=== PATIENT | male | born 1950 | race Caucasian/White ===

== ENCOUNTER 2016-11-27 16:23 | Inpatient (IN) | payer OTHER ==
[~2016-11-27] VITALS: Ht 180.3 cm; Wt 78.0 kg
[2016-11-27] MEDS ORDERED: SODIUM CHLORIDE 0.9% 1L BAG IV* STA (19:19)
[2016-11-27 20:35] LABS: BASOPHILS % 0.3 % (0.0-2.0); EOSINOPHILS # 0.1 10^3/ul (0.0-0.5); EOSINOPHILS % 0.9 % (0.0-7.0); HEMOGLOBIN 11.5 g/dl (14.0-18.0); INR 1.2; LYMPHOCYTES % 7.2 % (15.0-51.0); MEAN CORPUSCULAR HGB CONC 32.7 g/dl (32.0-37.0); MEAN CORPUSCULAR VOLUME 85.6 fl (82.0-101.0); MEAN PLATELET VOLUME 7.6 fl (7.4-10.4); MONOCYTE # 1.3 10^3/ul (0.3-0.9); MONOCYTES % 9.3 % (0.0-11.0); NEUTROPHIL # 11.2 10^3/ul (1.6-7.5); NEUTROPHILS % 82.3 % (39.0-77.0); PLATELET COUNT 439 10^3/UL (140-440); PROTIME 15.3 Sec (12.2-14.2); PT RATIO 1.2; RED CELL DISTRIBUTION WIDTH 14.1 % (11.5-14.5); UNCORRECTED WBC 13.6 10^3/ul (4.8-10.8); WHITE BLOOD COUNT 13.6 10^3/ul (4.8-10.8)
[2016-11-27 20:40] LABS: ALBUMIN 3.4 g/dl (3.3-4.9)
[2016-11-27 20:41] LABS: POTASSIUM 3.8 mmol/L (3.5-5.1)
[2016-11-27 20:43] LABS: ALBUMIN/GLOBULIN RATIO 0.68; BILIRUBIN,INDIRECT 0.1 mg/dl (0-1.1); BILIRUBIN,TOTAL 0.1 mg/dl (0.2-1.3); CONDITION 1; CREATININE 1.71 mg/dl (0.61-1.24); TOTAL PROTEIN 8.4 g/dl (6.1-8.1)
[2016-11-27] MEDS ORDERED: VANCOMYCIN 1 GM (PMX) 250 ML IVPB STA (20:46)
[2016-11-27 20:55] LABS: TROPONIN-I 0.015 ng/ml (0.00-0.12)
[2016-11-27] MEDS ORDERED: CEFTRIAXONE 1 GM/50 ML (PMX) 50 ML IVPB ONE (21:00)
[2016-11-27] MEDS ORDERED: CLINDAMYCIN 900 MG/D5W (PMX) 50 ML IVPB SCH (21:00)
--- NOTE | 2016-11-27 21:10 | RADRPT ---
PROCEDURE: XR Chest. CLINICAL INDICATION: Chest pain and possible sepsis TECHNIQUE: AP Portable chest. COMPARISON: None available FINDINGS: The soft tissues and bones are remarkable for mild dextroscoliosis and spondylosis of the thoracic s pine. In addition, healed fractures of the right posterior sixth and seventh ribs are present. Mil d vascular calcifications are present of the thoracic aorta and normal size heart is present. No fo claudio infiltrates, masses or effusions are present. No pneumothorax is noted. IMPRESSION: 1. No radiographic evidence for acute cardiopulmonary disease. 2. Mild atherosclerotic vascular disease 3. Healed right posterior sixth and seventh rib fractures. RPTAT: HDC .Frances Bella MD, Date Time Electronically viewed and signed by .Frances Bella MD, on 11/27/2016 21:10 .C/
--- NOTE | 2016-11-27 21:13 | ERA ---
ER Documentation Chief Complaint Date/Time DATE: 11/27/16 TIME: 21:05 Chief Complaint left lower leg cellulitis with no signs of fevers. HPI This is a 66-year-old male presents to the emergency room for evaluation of lower extremity cellulitis. The patient does state he has a history of chronic cellulitis, and frequently his cellulitis gets worse and he has to come to the emergency room for IV antibiotics. He states that he has not been to the emergency room in over 2 years, states that he is noticing purulent discharge from his left lower extremity. The patient denies any fevers, and is not on any medications and came to the emergency room today for evaluation. ROS All systems reviewed and are negative except as per history of present illness. Medications Home Meds No Active Prescriptions or Reported Meds Allergies Allergies: Coded Allergies: Penicillins (Verified Allergy, Unknown, 11/27/16) PMhx/Soc History of Surgery: No Anesthesia Reaction: No Hx Neurological Disorder: No Hx Respiratory Disorders: No Hx Cardiac Disorders: Yes (htn) Hx Psychiatric Problems: No Hx Alcohol Use: No Hx Substance Use: Yes (meth amph) Hx Tobacco Use: Yes Smoking Status: Current every day smoker Physical Exam Vitals Vital Signs Date Time Temp Pulse Resp B/P Pulse Ox O2 Delivery O2 Flow Rate FiO2 11/27/16 16:33 98.5 92 20 115/64 96 Physical Exam INITIAL VITAL SIGNS: Reviewed by me GENERAL: The patient is well developed, pleasant affect, disheveled appearance HEENT: Pupils equal, round, and reactive to light. EOMI. There is no scleral icterus. NECK: C-spine is soft and supple, there is no meningismus. There is no cervical lymphadenopathy. LUNGS: Clear to auscultation bilaterally. There are no rales, wheezes or rhonchi. HEART: Regular rate and rhythm, no murmurs, clicks, rubs or gallops. ABDOMEN: Soft, non-tender, non-distended. There are bowel sounds in all four quadrants. No rebound or guarding. EXTREMITIES: Cellulitis of the bilateral lower extremities, with chronic venous stasis ulcers and purulent discharge from the left foot from 3 2 cm x 2 cm ulcer located on the medial aspect, 2+ pitting edema to bilateral lower extremities NEUROLOGICAL: The patient moves all four extremities with 5/5 strength. Cranial nerves II - XII are intact. Normal gait. Alert and oriented SKIN: There is no apparent rash or petechiae. HEME/LYMPHATIC: There is no evidence of excessive bruising or lymphedema. PSYCHIATRIC: The patient does not appear anxious or depressed. Result Diagram: 11/27/16195411/27/161954 Results 24 hrs Laboratory Tests Test 11/27/16 19:55 Activated Partial Thromboplast Time Pending Alanine Aminotransferase (ALT/SGPT) 20IU/L Albumin 3.4g/dl Albumin/Globulin Ratio 0.68 Alkaline Phosphatase 87IU/L Anion Gap 16 Aspartate Amino Transf (AST/SGOT) 28IU/L Basophils # 0.010^3/ul Basophils % 0.3% Blood Morphology Comment Blood Urea Nitrogen 37mg/dl Calcium Level 9.0mg/dl Carbon Dioxide Level 30mmol/L Chloride Level 100mmol/L Creatinine 1.71mg/dl Direct Bilirubin 0.00mg/dl Eosinophils # 0.110^3/ul Eosinophils % 0.9% Globulin 5.00g/dl Glucose Level 72mg/dl Hematocrit 35.0% Hemoglobin 11.5g/dl INR International Normalized Ratio 1.20 Indirect Bilirubin 0.1mg/dl Lactic Acid Level 1.6mmol/L Lymphocytes # 1.010^3/ul Lymphocytes % 7.2% Mean Corpuscular Hemoglobin 28.0pg Mean Corpuscular Hemoglobin Concent 32.7g/dl Mean Corpuscular Volume 85.6fl Mean Platelet Volume 7.6fl Monocytes # 1.310^3/ul Monocytes % 9.3% Neutrophils # 11.210^3/ul Neutrophils % 82.3% Nucleated Red Blood Cells # 0.010^3/ul Nucleated Red Blood Cells % 0.0/100WBC Platelet Count 04740^3/UL Potassium Level 3.8mmol/L Prothrombin Time 15.3Sec Prothrombin Time Ratio 1.2 Red Blood Count 4.1010^6/ul Red Cell Distribution Width 14.1% Sodium Level 142mmol/L Total Bilirubin 0.1mg/dl Total Protein 8.4g/dl Troponin I 0.015ng/ml White Blood Count 13.610^3/ul Current Medications Medications (Trade) Dose Ordered Sig/Guillermo Route PRN Reason Start Time Stop Time Status Last Admin Dose Admin Sodium Chloride 2480 ml 2,480 ml BOLUS OVER 2 HOURS STAT IV* 11/27/16 19:19 11/27/16 19:20 DC Vancomycin HCl 250 ml @ 125 mls/hr ONCE STAT IVPB 11/27/16 20:46 11/27/16 22:45 Ceftriaxone Sodium 50 ml @ 100 mls/hr ONCE ONCE IVPB 11/27/16 21:00 11/27/16 21:29 UNV Clindamycin HCl/ Dextrose (Cleocin 900 Mg/ D5W (Pmx)) 50 ml @ 50 mls/hr ONCE IVPB 11/27/16 21:00 11/27/16 21:59 Procedures/MDM EKG: Rate/Rhythm: [Normal Sinus Rhythm] QRS, ST, T-waves: [No changes consistent w/ acute ischemia] Impression: [No evidence of ischemia or arrhythmia] This 66-year-old male presents to the ER for evaluation of cellulitis. This patient was found to have diffuse cellulitis of the bilateral lower extremities with a leukocytosis and purulent discharge. He was started on vancomycin, Rocephin, and clindamycin. This patient did have blood and urine cultures obtained. He did have a heart rate above 90, leukocytosis, episodes of infection and he does meet for sepsis criteria. There is no need for vasopressors at this time as this patient does have a mean arterial pressure greater than 65. He was given a 30 cc kilogram IV normal saline bolus. I have spoken to the patient's admitting physician, Dr. Gamino who is okay with [facility] Critical Care: Excluding all billable procedures Time: 34 minutes Treatments/Evaluations: Close monitoring and treatment of unstable vital signs, cardiorespiratory, and neurologic status, while maintaining tight balance of fluid, respiratory, and cardiac interventions. Departure Diagnosis: Primary Impression: Sepsis Additional Impressions: Bilateral lower leg cellulitis Normocytic anemia Renal insufficiency Condition: Stable VIVIANACarlos EnriqueTORITO DALY Nov 27, 2016 21:13
[2016-11-27] MEDS ORDERED: SOD CHLORIDE 0.9% 1,000 ML IV SCH (21:14)
[2016-11-27] MEDS ORDERED: ONDANSETRON 4 MG INJ IV PRN ×2 (21:30→23:00)
[2016-11-27] MEDS ORDERED: ACETAMINOPHEN 325 MG TAB PO PRN ×2 (21:30→23:00)
[2016-11-27] MEDS ORDERED: ZOLPIDEM 5 MG TAB PO PRN (23:00)
[2016-11-27] MEDS ORDERED: DOCUSATE SODIUM 100 MG CAP PO PRN (23:00)
[2016-11-27] MEDS ORDERED: NACL 0.9% 3 ML SYG IV SCH (23:00)
[2016-11-27] MEDS ORDERED: BISACODYL (EC) 5 MG TAB PO PRN (23:00)
[2016-11-27] MEDS ORDERED: HYDROCODONE/APAP (5/325) TAB PO PRN (23:00)
[2016-11-27] MEDS ORDERED: ACETAMINOPHEN 650 MG SUPP PR PRN (23:00)
[2016-11-27] MEDS ORDERED: VANCOMYCIN IV PER PHARMACY XX SCH (23:00)
[2016-11-27] MEDS ORDERED: MAGNESIUM HYDROXIDE 30ML CUP PO PRN (23:00)
[2016-11-27] MEDS ORDERED: morphine 2 MG INJ IV PRN (23:00)
[2016-11-27 23:03] VITALS: PULSE 92; TEMP 98.2
[2016-11-27] MEDS ORDERED: LEVOFLOXACIN 500 MG TAB PO ONE (23:59)
[2016-11-28 00:30] VITALS: Ht 180.3 cm; Wt 78.0 kg
[2016-11-28] MEDS: SOD CHLORIDE 0.9% 1,000 ML IV SCH ×2 (01:51→17:31)
[2016-11-28] MEDS: PANTOPRAZOLE (EC) 40 MG TAB PO SCH (05:46)
[2016-11-28] MEDS: VANCOMYCIN 1 GM in NS 250 ML IVPB SCH (08:14)
[2016-11-28] MEDS: ENOXAPARIN 40 MG/0.4 ML SYG SC SCH (08:17)
[2016-11-28 08:54] VITALS: BP 105/59; RESP 16
[2016-11-28 11:02] LABS: BASOPHILS % 0.3 % (0.0-2.0); EOSINOPHILS # 0.1 10^3/ul (0.0-0.5); EOSINOPHILS % 1.2 % (0.0-7.0); HEMATOCRIT 30.6 % (42.0-52.0); HEMOGLOBIN 10.2 g/dl (14.0-18.0); LYMPHOCYTES # 0.8 10^3/ul (0.8-2.9); LYMPHOCYTES % 7.9 % (15.0-51.0); MEAN CORPUSCULAR HEMOGLOBIN 28.2 pg (29.0-33.0); MEAN CORPUSCULAR HGB CONC 33.2 g/dl (32.0-37.0); MEAN PLATELET VOLUME 7.5 fl (7.4-10.4); MONOCYTE # 1.1 10^3/ul (0.3-0.9); MONOCYTES % 10.8 % (0.0-11.0); NEUTROPHIL # 7.9 10^3/ul (1.6-7.5); NEUTROPHILS % 79.8 % (39.0-77.0); PLATELET COUNT 396 10^3/UL (140-440); RED CELL DISTRIBUTION WIDTH 14.1 % (11.5-14.5); UNCORRECTED WBC 9.9 10^3/ul (4.8-10.8); WHITE BLOOD COUNT 9.9 10^3/ul (4.8-10.8)
[2016-11-28 11:11] LABS: CONDITION 1
[2016-11-28 11:22] LABS: ALBUMIN 2.6 g/dl (3.3-4.9); POTASSIUM 3.9 mmol/L (3.5-5.1)
[2016-11-28 11:25] LABS: ALBUMIN/GLOBULIN RATIO 0.63; BILIRUBIN,INDIRECT 0.2 mg/dl (0-1.1); BILIRUBIN,TOTAL 0.2 mg/dl (0.2-1.3); CALCIUM 8.2 mg/dl (8.4-10.2); CREATININE 1.71 mg/dl (0.61-1.24); TOTAL PROTEIN 6.7 g/dl (6.1-8.1)
[2016-11-28 15:40] LABS: ADD UMIC YES; URINE BILIRUBIN (Dip) NEGATIVE (NEGATIVE); URINE BLOOD (Dip) 1+ (NEGATIVE); URINE COLOR YELLOW (YELLOW); URINE GLUCOSE (Dip) NEGATIVE (NEGATIVE); URINE KETONES (Dip) NEGATIVE (NEGATIVE); URINE LEUKOCYTE ESTERASE (Dip) 3+ (NEGATIVE); URINE NITRITE (Dip) NEGATIVE (NEGATIVE); URINE TOTAL PROTEIN (Dip) TRACE (NEGATIVE); URINE UROBILINOGEN (Dip) 0.2 E.U./dL (0.1-1.0)
[2016-11-28 16:00] LABS: BACTERIA,URINE MANY; SQUAMOUS EPITHELIAL CELL,UR RARE
--- NOTE | 2016-11-28 16:49 | QN ---
Documentation Comment [id number] JOSE ANTONIO JESUS MD Nov 28, 2016 16:48
--- NOTE | 2016-11-28 17:46 | HP ---
DATE OF ADMISSION: 11/27/2016 HISTORY OF PRESENT ILLNESS: Anthony Menezes is a 66-year-old male who lives by himself with dogs as per patient, presented with lower extremity edema, redness and cellulitis. Blood pressure 109/59. The patient has a stiff and large urinary bladder and does self-catheterization. Denies any diabetes or hypertension. ALLERGY HISTORY: PENICILLIN. SOCIAL HISTORY: Smoking positive. Denies any drug abuse. _ MEDICATIONS AT HOME: None. PATIENT'S LISTED MEDICATIONS: None. REVIEW OF SYSTEMS: HEENT: Unremarkable. RESPIRATORY: Unremarkable. CARDIOVASCULAR: Unremarkable. ABDOMEN: A history of distended urinary bladder, does self-catheterization. EXTREMITIES: Swelling of the lower extremity, redness and rash. CENTRAL NERVOUS SYSTEM: Unremarkable. PHYSICAL EXAMINATION: GENERAL: The patient is awake, alert with poor hygiene. VITAL SIGNS: Pulse 92, blood pressure 110/55. HEAD: Atraumatic, normocephalic. Pupils equal, reactive to light. No pallor or conjunctival icterus. NECK: Supple, no JVD. LUNGS: Clear. CARDIOVASCULAR: S1, S2 are normal. ABDOMEN: Soft, distended. Bowel sounds positive. The patient does have bladder firmness noted. EXTREMITIES. The patient has edema of the lower extremity with a rash noted and a cellulitic area noted with or lesion noted. CENTRAL NERVOUS SYSTEM: The patient is awake, alert, no deficit. LABORATORY DATA: WBC 13.6, hematocrit 35, platelet count of 439. The patient has a BUN 37, creatinine 1.7, sodium 142, albumin 2.6. Leukocyte esterase positive in the urine. Chest x-ray: Mild atherosclerotic vascular disease, healed right posterior 6th and 7th rib fracture. IMPRESSION: Lower extremity cellulitis, edema, possible chronic kidney disease. The patient has lactic acidosis. Incomplete database. PLAN: To give this patient low salt diet, wound care, antibiotics and DVT prophylaxis, pain medication. Ultrasound of the abdomen if not done. Orders were done. Dictated By: JOSE ANTONIO [place] Conf#: [id number] DID#: [id number] MTDD
--- NOTE | 2016-11-28 19:16 | RADRPT ---
PROCEDURE: US Renal CLINICAL INDICATION: Distended bladder TECHNIQUE: Multiple sonographic images of the kidneys and bladder were obtained. Evaluation of th e kidneys and bladder was performed as well with gómez scale and color and Doppler evaluation using a curved array transducer. The images were reviewed on a high-resolution PACS workstation. COMPARISON: No prior studies are available for comparison. FINDINGS: The kidneys are well visualized. The right kidney measures 12.9 cm in length. The left kidney measur es 10.2 cm in length. Multiple right renal simple cysts are seen largest 4.1 x 3.3 x 3.3 cm arising from the mid kidney. There is moderate right hydronephrosis. There is a left renal simple cyst mary suring 3.3 x 3.6 x 3.5 cm. There is no left hydronephrosis. No solid renal mass or calculus is seen bilaterally. No perinephric fluid collection is seen. The bladder is decompressed and collapsed. Mcdermott catheter is in the bladder. IMPRESSION: Moderate right hydronephrosis. Bilateral renal cysts. Please see above. RPTAT: HJES .Nilay Du MD, MD Date Time Electronically viewed and signed by .Nilay Du MD, on 11/28/2016 19:15 .S/
[2016-11-28 20:05] VITALS: BP 128/57; RESP 16
[2016-11-29] MEDS: PANTOPRAZOLE (EC) 40 MG TAB PO SCH (05:20)
[2016-11-29 05:44] LABS: BASOPHILS % 0.4 % (0.0-2.0); EOSINOPHILS # 0.2 10^3/ul (0.0-0.5); EOSINOPHILS % 2.1 % (0.0-7.0); HEMATOCRIT 30.7 % (42.0-52.0); HEMOGLOBIN 10.2 g/dl (14.0-18.0); LYMPHOCYTES # 1.3 10^3/ul (0.8-2.9); LYMPHOCYTES % 12.7 % (15.0-51.0); MEAN CORPUSCULAR HEMOGLOBIN 28.3 pg (29.0-33.0); MEAN CORPUSCULAR HGB CONC 33.2 g/dl (32.0-37.0); MEAN CORPUSCULAR VOLUME 85.4 fl (82.0-101.0); MEAN PLATELET VOLUME 7.8 fl (7.4-10.4); MONOCYTE # 0.8 10^3/ul (0.3-0.9); NEUTROPHIL # 7.7 10^3/ul (1.6-7.5); NEUTROPHILS % 76.8 % (39.0-77.0); PLATELET COUNT 375 10^3/UL (140-440); UNCORRECTED WBC 10.1 10^3/ul (4.8-10.8); WHITE BLOOD COUNT 10.1 10^3/ul (4.8-10.8)
[2016-11-29 05:53] LABS: CONDITION 1
[2016-11-29 06:07] LABS: ALBUMIN 2.8 g/dl (3.3-4.9)
[2016-11-29 06:08] LABS: POTASSIUM 3.8 mmol/L (3.5-5.1)
[2016-11-29 06:10] LABS: ALBUMIN/GLOBULIN RATIO 0.63; BILIRUBIN,INDIRECT 0.1 mg/dl (0-1.1); BILIRUBIN,TOTAL 0.1 mg/dl (0.2-1.3); CREATININE 1.59 mg/dl (0.61-1.24); TOTAL PROTEIN 7.2 g/dl (6.1-8.1)
[2016-11-29 06:11] LABS: CALCIUM 8.6 mg/dl (8.4-10.2)
[2016-11-29 08:28] VITALS: BP 104/64; RESP 20
[2016-11-29] MEDS: VANCOMYCIN 1 GM in NS 250 ML IVPB SCH (08:47)
[2016-11-29] MEDS: ENOXAPARIN 40 MG/0.4 ML SYG SC SCH (08:48)
--- NOTE | 2016-11-29 16:06 | RADRPT ---
Echocardiogram Report ADDENDUM Patient Name: NIDHI FUCHS Gender: Male Date: 1950 Study Date: 29-Nov-2016 Floral Arranger: Trent Sanders [facility] Location: 2258 Ref. Physician: JOSE ANTONIO JESUS Quality: Technically Difficult Study Procedures: Transthoracic echocardiogram with complete 2D, M-Mode, and doppler examination. Indications: Coronary Artery Disease. 2D/M Mode Doppler Measurement Value Normal Ranges Measurement Value Normal Ranges LVIDd 2D 4.8 3.5 - 5.6 cm AV Peak Janak 1.5 m/sec LVIDs 2D 2.2 2.1 - 4.1 cm AV Peak PG 9.0 mmHg FS 2D 55.1 % LVOT Peak Janak 0.6 m/sec LVPWd 2D 0.9 0.6 - 1.1 cm LVOT Peak PG 1.0 mmHg IVSd 2D 1.0 0.6 - 1.1 cm MV E Peak Janak 0.6 m/sec IVS/LVPW 2D 1.1 MV A Peak Janak 0.5 m/sec AoR Diam 2D 3.0 2.0 - 3.7 cm MV E/A 1.1 LA/Ao 2D 1 0 - 1 MV Decel Time 194 msec EDV 2D 113.0 cm3 MV E/A 1.1 ESV 2D 10.2 cm3 LA Dimen 2D 4.0 2.3 - 4.0 cm Findings Left Ventricle: Normal left ventricular systolic function. Normal left ventricular cavity size. Normal left ventricular wall thickness. Ejection fraction is visually estimated at 60 %. Right Ventricle: Normal right ventricular size. Normal right ventricular systolic function. Left Atrium: Upper limit of normal left atrial size. Right Atrium: The right atrium is normal in size. Mitral Valve: Mitral valve leaflets appear mildly thickened. Moderate mitral annular calcification. Trace mitral regurgitation. Aortic Valve: Mild aortic stenosis. Aortic cusps appear moderately calcified. Tricuspid Valve: Normal appearance of the tricuspid valve. Unable to obtain RVSP due to minimal presence of tricuspid regurgitation. Pericardium: Normal pericardium with no significant pericardial effusion. Aorta: Normal aortic root. IVC: Normal size and normal respiratory collapse consistent with normal right atrial pressure. Conclusions 1.Normal left ventricular systolic function. Normal left ventricular cavity size. Normal left ventricular wall thickness. Ejection fraction is visually estimated at 60 %. 2.Mitral valve leaflets appear mildly thickened. Moderate mitral annular calcification. Trace mitral regurgitation. 3.Mild aortic stenosis by gradient. GYPSY not calculated by tech on this study. Aortic cusps appear moderately calcified. Due to focal thickening of the aortic valve apparatus cannot completely rule out associated vegetation. Clinical correlation necessary. 4.Normal appearance of the tricuspid valve. Unable to obtain RVSP due to minimal presence of tricuspid regurgitation. Electronically Signed By: Walter West 29-Nov-2016 16:07:55 -0800 [ADDENDUM] Patient Name: NIDHI FUCHS Study Date: 29-Nov-[id number]
[2016-11-29] MEDS: SOD CHLORIDE 0.9% 1,000 ML IV SCH (16:23)
--- NOTE | 2016-11-29 16:32 | CONS ---
DATE OF ADMISSION: 11/27/2016 DATE OF CONSULTATION: 11/29/2016 REASON FOR CONSULTATION: Abnormal electrocardiogram with PVCs in a pattern of bigeminy. Assess for acute coronary syndrome, assess for cardiomyopathy. REQUESTING PHYSICIAN: Sameer Jesus MD HISTORY OF PRESENT ILLNESS: Mr. Menezes is a 66-year-old male with history of ongoing tobacco usage, chronic cellulitis who presented with lower extremity wounds, nonhealing. Upon arrival, temperatur e 98.5, blood pressure 115/64, pulse 95, respiratory 20, saturating 96%. The patient's labs reveale d white count 13.6, hemoglobin 11.5, platelet count of 439, a sodium of 142, potassium 3.8, creatini ne 1.71, BUN of 37. AST 28, ALT 20. Troponin negative. INR of 1.2. UA positive. The patient und erwent a chest x-ray revealing no acute cardiopulmonary abnormalities, healed right posterior 6th an d 7th rib fractures, a renal ultrasound revealing moderate right hydronephrosis. Patient's electroc ardiogram revealed rhythm likely most consistent with sinus rhythm at a rate of 84 with left axis de viation, IVCD, secondary repolarization abnormalities and frequent PVCs in a pattern of bigeminy. T he patient was subsequently admitted to the floor and since admit to the floor, has had stable vital signs. Denies chest pain, shortness of breath. PAST MEDICAL HISTORY: As above in HPI. MEDICATIONS CURRENTLY IN HOSPITAL: 1. Lovenox ___ mg subcutaneous daily, vancomycin. 2. Protonix 40 mg daily. 3. Zofran. 4. Tylenol. 5. [place]. 6. Morphine. 7. Colace. 8. Ambien IV fluid hydration at 59. ALLERGIES: PENICILLIN. SOCIAL HISTORY: Positive tobacco. No ETOH or illicit drug use. FAMILY HISTORY: No ETOH, positive use of methamphetamine. HISTORY: Negative for sudden cardiac or early CAD. REVIEW OF SYSTEMS: As above in HPI. CONSTITUTIONAL: No fevers, chills. PULMONARY: No current shortness of breath. CARDIOVASCULAR: No current chest pain. GASTROINTESTINAL: No vomiting. GENITOURINARY: No hematuria. MUSCULOSKELETAL: Foot pain bilaterally, skin breakdown, erythema. Difficult to palpate distal pul ses bilaterally, posterior tibial, dorsalis pedis. LABORATORY DATA: As above in HPI. No further labs for my review at this time. IMAGING STUDIES: As above in HPI. No further imaging studies for my review at this time. ECG: As above in HPI. No further electrocardiograms for my review at this time. IMPRESSION: 1. Abnormal electrocardiogram, assess for acute coronary syndrome. 2. Premature ventricular contractions in a pattern of bigeminy, assess for acute coronary syndrome . 3. Hypertension. 4. Lower extremity cellulitis and skin breakdown. 5. Probable peripheral arterial disease. 6. Renal failure. 7. Anemia. 8. Leukocytosis. RECOMMENDATIONS: 1. At this time, would consider transfer to telemetry to continue to assess for ongoing significant arrhythmias. 2. Would check the patient's magnesium and replete greater than 2. Keep ____ as possible watching creatinine closely for gentle repletion. 3. Will initiate patient on low dose beta nikhil for suppression of recurrent bouts of bigeminy. 4. Check a 2D echo to further assess patient's ejection fraction, wall motion and any major abnorma lities. 5. Complete a rule out for myocardial infarction shows patient's EKG abnormalities and bigeminy are not due to any acute coronary syndrome such as an acute myocardial infarction. 6. Check a fasting lipid panel for general risk stratification and initiate lipid-lowering medicati ons as necessary. 7. For ongoing lower extremity wound care and antibiotics, suggest arterial ultrasound to assess fo r significant peripheral arterial disease in the setting of renal failure. 8. Continue all further workup and treatment per PMD and ____ consultations. Thank you for allowing me to take part in the care of this patient. I will continue to follow along very closely with you with further recommendations to be made as the patient progresses through his inpatient hospital clinical course. Dictated By: FRANKO DUFFY/J[place] Conf#: [id number] DID#: [id number] CC: SAMEER JESUS MD;*EndCC*
--- NOTE | 2016-11-29 17:35 | RADRPT ---
PROCEDURE: US bilateral lower extremity arteries. CLINICAL INDICATION: Bilateral leg pain. Claudication that interferes significantly with the masha ent's lifestyle. TECHNIQUE: Multiple longitudinal and transverse images of the bilateral lower extremity arteries w ere obtained with gómez scale, pulsed Doppler, and color Doppler imaging. COMPARISON: No prior studies are available for comparison. FINDINGS: Right TERMINAL CARMAN:190 cm/sec PSFA:111 cm/sec MSFA:88 cm/sec DSFA:83 cm/sec POP:74 cm/sec SITE PROMOTION AGENT:71 cm/sec DPA:30 cm/sec Left TERMINAL CARMAN:106 cm/sec PSFA:117 cm/sec MSFA:87 cm/sec DSFA:9 cm/sec POP:868 cm/sec SITE PROMOTION AGENT:52 cm/sec DPA:24 cm/sec The right ankle-brachial index is 1.1 and the left ankle-brachial index is 1.1. There is normal triphasic flow throughout bilaterally. There is no significant plaque, stenosis, or occlusion. IMPRESSION: 1. Normal bilateral lower extremity arterial Doppler. RPTAT: QQ .Jossue Garcia MD, Date Time Electronically viewed and signed by .Jossue Garcia MD, on 11/29/2016 17:35 .R/
--- NOTE | 2016-11-29 18:27 | CONS ---
DATE OF ADMISSION: 11/27/2016 DATE OF CONSULTATION: 11/29/2016 TYPE OF CONSULTATION: Urology. REQUESTING PHYSICIAN: Sameer Gamino. Dear Sameer: Thank you for asking me to see this patient in urological consultation. HISTORY OF PRESENT ILLNESS: This is a 66-year-old male who presented to the emergency room for eval uation of lower extremity cellulitis. He does have an ulcerated ulcer in the left lower extremity w ith purulent discharge coming out of it. The patient stated that he had a history of cellulitis in the past. In fact, his lower extremities are very pigmented from chronic cellulitis. 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 He was diagnosed with that at [facility] 2 to 3 years earlier and was put on self-intermittent catheterization. He was told initially to do the se lf-catheterization at least 3 times a day. He became gradually cut down on that and has been doing it once or twice a day and has not done any catheterization for the past week. He states that he morgan s not been doing it as often because he ran out of catheters and he has been using the same catheter again and again, and he does not know how to get these catheters. When he came into the emergency room. the bladder was distended and they put a Mcdermott catheter for him and then the patient underwent a renal ultrasound and that showed a right hydronephrosis; therefore, a urological consultation was requested. Since the patient stopped catheterizing himself. He has been going to the bathroom sherry y often and also has urgency incontinence and also he has been wetting the bed at night. The patien t denies having any fever or chills. The patient denies any history of hypertension. He states he is pre-diabetic. He also does have hepatitis C and expressed his desire to get rid of it since it c an be treated now. The patient is a smoker. He smokes 1 pack of cigarettes a day. He does not dri nk any alcohol. He was , he does have a daughter who is an officer but he is not in contact with her, and they do not talk and they do not communicate. The patient has used drugs in the past, basically meth and amphetamines. ALLERGIES: THE PATIENT STATES HE IS ALSO ALLERGIC TO PENICILLIN. Apparently he does have a history of hypertension as well. FAMILY HISTORY: His father of prostate cancer at around age 74 and his mother of pancreat ic cancer at age 71. PHYSICAL EXAMINATION: GENERAL: Reveals an elderly male. He weighs 78 kilograms. He is 71 inches tall. VITAL SIGNS: Temperature is 98.8, pulse is 86, respiration 20, blood pressure 104/64. HEAD AND NECK: He has poor dental hygiene. The neck is supple. There is no cervical adenopathy. HEART: Has some irregularities. LUNGS: Clear. ABDOMEN: Soft. There is no abdominal mass palpable. GENITALIA: External genitalia are normal. RECTAL: Prostate is soft and did not feel large. EXTREMITIES: He does have cellulitis of lower extremities and ulcerated area in the leg on the left side. LABORATORY DATA: His CBC shows a white count of, initially on admission 13.6, today is 10.1, BUN an d the hemoglobin was 11.5, now it is 10.2. The BUN is 33, creatinine 1.59. Electrolytes are normal . The PT is 15.3, INR 1.2. The renal ultrasound was reported as moderate right hydronephrosis, nita ateral renal cysts and the bladder is decompressed because he had a Mcdermott catheter put in. Urine culture is too young to evaluate and blood cultures are still pending. IMPRESSION: An atonic bladder, history of urinary retention, right hydronephrosis, most likely seco ndary to the urinary retention. The patient does have other medical problems including hepatitis C, and peripheral vascular disease with lower extremity cellulitis and ulceration. RECOMMENDATION: From a urological standpoint, at the present, we shall leave the Mcdermott catheter in and have his other medical problems taken care of, mainly his lower extremity cellulitis. The patie nt will be restarted on intermittent catheterization and we will arrange for home health through his insurance to get him to do the self-catheterization and learn how to do it in a sterile way so he c ould do it 4 times a day and hopefully save his kidney from further damage. I will follow his urological problem with you. I do thank you for allowing me to help in his care. Dictated By: MILO BURCIAGA/[place] Conf#: [id number] DID#: [id number]
[2016-11-29 19:25] LABS: CREATINE KINASE 36 IU/L (23-200)
[2016-11-29 19:44] LABS: CK-MB 1.63 ng/ml (0.0-2.4); TROPONIN-I < 0.010 ng/ml (0.00-0.12)
[2016-11-29 20:48] VITALS: BP 104/55; RESP 19
[2016-11-29] MEDS: METOPROLOL 25 MG TAB PO SCH (21:00)
--- NOTE | 2016-11-29 21:37 | PN ---
Date/Time of Note Date/Time of Note DATE: 11/29/16 TIME: 21:35 Assessment/Plan VTE Prophylaxis VTE Prophylaxis Intervention: other Lines/Catheters Urinary Cath still in place: Yes Reason Cath still needed: other (indicate) Assessment/Plan Chief Complaint/Hosp Course cellulites ckd hydronephrosis plan per apc dr grant called to see Problems: Subjective 24 Hr Interval Summary ENT: no complaints Respiratory: no complaints Gastrointestinal: pain Exam/Review of Systems Vital Signs Vitals Vital Signs Date Time Temp Pulse Resp B/P Pulse Ox O2 Delivery O2 Flow Rate FiO2 11/29/16 20:48 98.8 65 19 104/55 95 11/27/16 23:03 Room Air Intake and Output 11/28/16 11/28/16 11/29/16 15:00 23:00 07:00 Intake Total 250 ml 3140 ml 1375 ml Output Total 4100 ml 6100 ml Balance 250 ml -960 ml -4725 ml Exam Respiratory: clear to auscultation Cardiovascular: regular rate and rhythm Gastrointestinal: soft Extremities: other (skin wound+) Results Result Diagram: 11/29/16 0425 11/29/16 0455 Results 24 hrs Laboratory Tests Test 11/29/16 04:25 11/29/16 04:55 11/29/16 14:40 11/29/16 19:00 Basophils # 0.0 Basophils % 0.4 Blood Morphology Comment Eosinophils # 0.2 Eosinophils % 2.1 Hematocrit 30.7 L Hemoglobin 10.2 L Lymphocytes # 1.3 Lymphocytes % 12.7 L Mean Corpuscular Hemoglobin 28.3 L Mean Corpuscular Hemoglobin Concent 33.2 Mean Corpuscular Volume 85.4 Mean Platelet Volume 7.8 Monocytes # 0.8 Monocytes % 8.0 Neutrophils # 7.7 H Neutrophils % 76.8 Nucleated Red Blood Cells # 0.0 Nucleated Red Blood Cells % 0.0 Platelet Count 375 Red Blood Count 3.60 L Red Cell Distribution Width 14.0 White Blood Count 10.1 Alanine Aminotransferase (ALT/SGPT) 13 Albumin 2.8 L Albumin/Globulin Ratio 0.63 Alkaline Phosphatase 71 Anion Gap 16 Aspartate Amino Transf (AST/SGOT) 18 Blood Urea Nitrogen 33 H Calcium Level 8.6 Carbon Dioxide Level 25 Chloride Level 106 Creatinine 1.59 H Direct Bilirubin 0.00 Globulin 4.40 H Glucose Level 93 # Indirect Bilirubin 0.1 Potassium Level 3.8 Sodium Level 143 Total Bilirubin 0.1 L Total Protein 7.2 Magnesium Level 1.7 Creatine Kinase 36 Creatine Kinase Index 4.5 Creatinine Kinase MB (Mass) 1.63 Troponin I < 0.010 Medications Medications Current Medications Sodium Chloride (NS) 1,000 ml @ 50 mls/hr Q20H IV Last administered on 16:23; Admin Dose 50 MLS/HR; Start 11/27/16 at 22:45 Ondansetron HCl (Zofran Inj) 4 mg Q6H PRN IV NAUSEA AND/OR VOMITING; Start 11/27 at 23:00 Acetaminophen (Tylenol Tab) 650 mg Q6H PRN PO PAIN LEVEL 1-3 OR FEVER; Start at 23:00 Acetaminophen (Tylenol Supp) 650 mg Q6H PRN [place] PAIN LEVEL 1-3 OR FEVER; Start 11/27/16 at 23:00 Acetaminophen/ Hydrocodone Bitart ([place] (5/325)) 1 tab Q6H PRN PO MODERATE PAIN LEVEL 4-6; Start 11/27/16 at 23:00 Morphine Sulfate (morphine) 2 mg Q4H PRN IV SEVERE PAIN LEVEL 7-10; Start at 23:00 Docusate Sodium (Colace) 100 mg Q12H PRN PO CONSTIPATION; Start 11/27/16 at 23: 00 Magnesium Hydroxide (Milk Of Mag) 30 ml DAILY PRN PO CONSTIPATION; Start at 23:00 Bisacodyl (Dulcolax) 5 mg DAILY PRN PO CONSTIPATION; Start 11/27/16 at 23:00 Zolpidem Tartrate (Ambien) 5 mg QHS PRN PO SLEEP; Start 11/27/16 at 23:00 Pantoprazole (Protonix Tab) 40 mg DAILY@06 PO Last administered on 11/29/16 05 :20; Admin Dose 40 MG; Start 11/28/16 at 06:00 Enoxaparin Sodium 40 mg 40 mg DAILY SC ; Start 11/28/16 at 09:00 Vancomycin HCl (Vancocin) 250 ml @ 125 mls/hr Q24H IVPB Last administered on 08:47; Admin Dose 125 MLS/HR; Start 11/28/16 at 09:00 Metoprolol Tartrate (Lopressor) 25 mg BID PO ; Start 11/29/16 at 21:00 JOSE ANTONIO JESUS MD Nov 29, 2016 21:36
--- NOTE | 2016-11-29 22:57 | RADRPT ---
Vent Rate: 80 bpm RR Interval: 0 msec [place] Interval: 148 msec QRS Duration: 136 msec QT Interval: 436 msec QTC Interval: 502 msec P-R-T [place]: 74 - -12 - 74 degrees Sinus rhythm with frequent premature ventricular complexes Right bundle branch block Abnormal ECG Electronically Signed By: Nilay Hernandez [id number]
--- NOTE | 2016-11-29 23:38 | CONS ---
Date/Time of Note Date/Time of Note DATE: 11/29/16 TIME: 23:38 Assessment/Plan Assessment/Plan Problems: (1) Bilateral lower leg cellulitis Status: Acute (2) Normocytic anemia Status: Acute (3) Renal insufficiency Status: Acute Additional Assessment/Plan No surgery recommended at this time. Continue IVAbx. Will follow inhouse. Thank you again for involving me in the care of this patient. If you have any questions regarding this case, please feel free to contact me at pager: or reach me at mobile: [phone]. Consultation Date/Type/Reason Admit Date/Time Nov 27, 2016 at 21:15 ENT: no complaints Respiratory: no complaints Gastrointestinal: pain Social History Smoking Status: Current every day smoker Exam/Review of Systems Vital Signs Vitals Vital Signs Date Time Temp Pulse Resp B/P Pulse Ox O2 Delivery O2 Flow Rate FiO2 11/29/16 20:48 98.8 65 19 104/55 95 11/27/16 23:03 Room Air Intake and Output 11/28/16 11/28/16 11/29/16 15:00 23:00 07:00 Intake Total 250 ml 3140 ml 1375 ml Output Total 4100 ml 6100 ml Balance 250 ml -960 ml -4725 ml Results Result Diagram: 11/29/16 0425 11/29/16 0455 Results 24 hrs Laboratory Tests Test 11/29/16 04:25 11/29/16 04:55 11/29/16 14:40 11/29/16 19:00 Basophils # 0.0 Basophils % 0.4 Blood Morphology Comment Eosinophils # 0.2 Eosinophils % 2.1 Hematocrit 30.7 L Hemoglobin 10.2 L Lymphocytes # 1.3 Lymphocytes % 12.7 L Mean Corpuscular Hemoglobin 28.3 L Mean Corpuscular Hemoglobin Concent 33.2 Mean Corpuscular Volume 85.4 Mean Platelet Volume 7.8 Monocytes # 0.8 Monocytes % 8.0 Neutrophils # 7.7 H Neutrophils % 76.8 Nucleated Red Blood Cells # 0.0 Nucleated Red Blood Cells % 0.0 Platelet Count 375 Red Blood Count 3.60 L Red Cell Distribution Width 14.0 White Blood Count 10.1 Alanine Aminotransferase (ALT/SGPT) 13 Albumin 2.8 L Albumin/Globulin Ratio 0.63 Alkaline Phosphatase 71 Anion Gap 16 Aspartate Amino Transf (AST/SGOT) 18 Blood Urea Nitrogen 33 H Calcium Level 8.6 Carbon Dioxide Level 25 Chloride Level 106 Creatinine 1.59 H Direct Bilirubin 0.00 Globulin 4.40 H Glucose Level 93 # Indirect Bilirubin 0.1 Potassium Level 3.8 Sodium Level 143 Total Bilirubin 0.1 L Total Protein 7.2 Magnesium Level 1.7 Creatine Kinase 36 Creatine Kinase Index 4.5 Creatinine Kinase MB (Mass) 1.63 Troponin I < 0.010 Medications Medications Current Medications Sodium Chloride (NS) 1,000 ml @ 50 mls/hr Q20H IV Last administered on 16:23; Admin Dose 50 MLS/HR; Start 11/27/16 at 22:45 Ondansetron HCl (Zofran Inj) 4 mg Q6H PRN IV NAUSEA AND/OR VOMITING; Start 11/27 at 23:00 Acetaminophen (Tylenol Tab) 650 mg Q6H PRN PO PAIN LEVEL 1-3 OR FEVER; Start at 23:00 Acetaminophen (Tylenol Supp) 650 mg Q6H PRN [place] PAIN LEVEL 1-3 OR FEVER; Start 11/27/16 at 23:00 Acetaminophen/ Hydrocodone Bitart ([place] (5/325)) 1 tab Q6H PRN PO MODERATE PAIN LEVEL 4-6; Start 11/27/16 at 23:00 Morphine Sulfate (morphine) 2 mg Q4H PRN IV SEVERE PAIN LEVEL 7-10; Start at 23:00 Docusate Sodium (Colace) 100 mg Q12H PRN PO CONSTIPATION; Start 11/27/16 at 23: 00 Magnesium Hydroxide (Milk Of Mag) 30 ml DAILY PRN PO CONSTIPATION; Start at 23:00 Bisacodyl (Dulcolax) 5 mg DAILY PRN PO CONSTIPATION; Start 11/27/16 at 23:00 Zolpidem Tartrate (Ambien) 5 mg QHS PRN PO SLEEP; Start 11/27/16 at 23:00 Pantoprazole (Protonix Tab) 40 mg DAILY@06 PO Last administered on 11/29/16 05 :20; Admin Dose 40 MG; Start 11/28/16 at 06:00 Enoxaparin Sodium 40 mg 40 mg DAILY SC ; Start 11/28/16 at 09:00 Vancomycin HCl (Vancocin) 250 ml @ 125 mls/hr Q24H IVPB Last administered on t 08:47; Admin Dose 125 MLS/HR; Start 11/28/16 at 09:00 Metoprolol Tartrate (Lopressor) 25 mg BID PO ; Start 11/29/16 at 21:00 JOSS CORTEZ DPM Nov 29, 2016 23:38
[2016-11-30] MEDS: PANTOPRAZOLE (EC) 40 MG TAB PO SCH (06:23)
[2016-11-30] MEDS: SOD CHLORIDE 0.9% 1,000 ML IV SCH (06:30)
[2016-11-30 08:18] VITALS: BP 136/82; RESP 18
[2016-11-30] MEDS: METOPROLOL 25 MG TAB PO SCH ×2 (08:27→21:00)
[2016-11-30] MEDS: ENOXAPARIN 40 MG/0.4 ML SYG SC SCH (08:27)
[2016-11-30] MEDS: VANCOMYCIN 1 GM in NS 250 ML IVPB SCH (08:30)
--- NOTE | 2016-11-30 11:02 | RADRPT ---
Vent Rate: 92 bpm RR Interval: 0 msec [place] Interval: 148 msec QRS Duration: 132 msec QT Interval: 432 msec QTC Interval: 534 msec P-R-T [place]: 68 - -17 - 74 degrees Sinus rhythm with frequent premature ventricular complexes Right bundle branch block Abnormal ECG Electronically Signed By: Jonny Ames [id number]
--- NOTE | 2016-11-30 14:18 | CONS ---
Date/Time of Note Date/Time of Note DATE: 11/30/16 TIME: 14:13 Assessment/Plan Assessment/Plan Chief Complaint/Hosp Course IMPRESSION: 1. Abnormal electrocardiogram, assess for acute coronary syndrome. 2. Premature ventricular contractions in a pattern of bigeminy, assess for acute coronary syndrome. 3. Hypertension. 4. Lower extremity cellulitis and skin breakdown-No sig PAD by arterial INOCENTE. 5. Probable peripheral arterial disease. 6. Renal failure. 7. Anemia. 8. Leukocytosis. 9.Hypomagnesemia Recc: -serial ecg's -complete yasmeen with final troponin -replete mag>2.0 and keep k>4.0 -Continue abx's Problems: Consultation Date/Type/Reason Admit Date/Time Nov 27, 2016 at 21:15 Initial Consult Date 11/30/2016 Type of Consultation: Cardiology Reason for Consultation PVC Referring Provider: JOSE ANTONIO JESUS MD Exam/Review of Systems Vital Signs Vitals Vital Signs Date Time Temp Pulse Resp B/P Pulse Ox O2 Delivery O2 Flow Rate FiO2 11/30/16 08:18 98.4 80 18 136/82 96 11/27/16 23:03 Room Air Intake and Output 11/29/16 11/29/16 11/30/16 15:00 23:00 07:00 Intake Total 500 ml 1570 ml 2350 ml Output Total 2300 ml 2900 ml Balance 500 ml -730 ml -550 ml Exam Review of Systems: CONSTITUTIONAL: No fevers, chills. PULMONARY: No sob CARDIOVASCULAR: No chest pain/palpitations GASTROINTESTINAL: No nausea/vomiting. GENITOURINARY: No hematuria/dysuria. MUSCULOSKELETAL: No myagias/arthalgias. PSYCHIATRIC: The patient denies depression. NEUROLOGIC: lethargic Constitutional: other (sleeping) Psych: no complaints Head: normocephalic ENMT: mucosa pink and moist Neck: jvd (9 cm water), supple Respiratory: diminished breath sounds Cardiovascular: regular rate and rhythm Gastrointestinal: non-tender, soft Musculoskeletal: muscle tone (normal) Extremities: edema (none) Neurological: other (lethargic) Results Result Diagram: 11/29/16 0425 11/29/16 0455 Results 24 hrs Laboratory Tests Test 11/29/16 14:40 11/29/16 19:00 Magnesium Level 1.7 Creatine Kinase 36 Creatine Kinase Index 4.5 Creatinine Kinase MB (Mass) 1.63 Troponin I < 0.010 Medications Medications Current Medications Sodium Chloride (NS) 1,000 ml @ 50 mls/hr Q20H IV Last administered on 06:30; Admin Dose 50 MLS/HR; Start 11/27/16 at 22:45 Ondansetron HCl (Zofran Inj) 4 mg Q6H PRN IV NAUSEA AND/OR VOMITING; Start 11/27 at 23:00 Acetaminophen (Tylenol Tab) 650 mg Q6H PRN PO PAIN LEVEL 1-3 OR FEVER; Start at 23:00 Acetaminophen (Tylenol Supp) 650 mg Q6H PRN [place] PAIN LEVEL 1-3 OR FEVER; Start 11/27/16 at 23:00 Acetaminophen/ Hydrocodone Bitart ([place] (5/325)) 1 tab Q6H PRN PO MODERATE PAIN LEVEL 4-6; Start 11/27/16 at 23:00 Morphine Sulfate (morphine) 2 mg Q4H PRN IV SEVERE PAIN LEVEL 7-10; Start at 23:00 Docusate Sodium (Colace) 100 mg Q12H PRN PO CONSTIPATION; Start 11/27/16 at 23: 00 Magnesium Hydroxide (Milk Of Mag) 30 ml DAILY PRN PO CONSTIPATION; Start at 23:00 Bisacodyl (Dulcolax) 5 mg DAILY PRN PO CONSTIPATION; Start 11/27/16 at 23:00 Zolpidem Tartrate (Ambien) 5 mg QHS PRN PO SLEEP; Start 11/27/16 at 23:00 Pantoprazole (Protonix Tab) 40 mg DAILY@06 PO Last administered on 11/30/16 06 :23; Admin Dose 40 MG; Start 11/28/16 at 06:00 Enoxaparin Sodium 40 mg 40 mg DAILY SC ; Start 11/28/16 at 09:00 Vancomycin HCl (Vancocin) 250 ml @ 125 mls/hr Q24H IVPB Last administered on 08:30; Admin Dose 125 MLS/HR; Start 11/28/16 at 09:00 Metoprolol Tartrate (Lopressor) 25 mg BID PO ; Start 11/29/16 at 21:00 Miscellaneous Information (*Rx Drug Level Order Reminder*) 1 ONCE ONCE XX ; Start 12/01/16 at 08:00; Stop 12/01/16 at 08:01 FRANKO AUGUSTINE Nov 30, 2016 14:18
[2016-11-30 14:25] LABS: CHOL/HDL RATIO 4.8 RATIO; CREATINE KINASE 51 IU/L (23-200)
[2016-11-30] MEDS ORDERED: MAGNESIUM SULFATE 2 GM/50 ML 50 ML IVPB ONE (14:30)
--- NOTE | 2016-11-30 14:47 | PDOCDIS ---
Discharge Instructions CONDITION Patient Condition: Stable HOME CARE INSTRUCTIONS: Special Diet: LOW FAT, LOW CHOLESTEROL ACTIVITY: Activity Restrictions: Slowly Increase Activity FOLLOW UP/APPOINTMENTS Appointments f/u own pcp [address] grant [address] oneal [address] painting 2 wks arrange for home health JOSE ANTONIO JESUS MD Nov 30, 2016 14:46
[2016-11-30] MEDS ORDERED: METO-448 PO (14:49)
[2016-11-30] MEDS ORDERED: BISA5TAB6 PO (14:49)
[2016-11-30] MEDS ORDERED: DOXY100T20 PO (14:49)
--- NOTE | 2016-11-30 14:56 | PN ---
Date/Time of Note Date/Time of Note DATE: 11/30/16 TIME: 14:55 Assessment/Plan VTE Prophylaxis VTE Prophylaxis Intervention: other Lines/Catheters IV Catheter Type (from Nrsg): Peripheral IV Urinary Cath still in place: No Assessment/Plan Chief Complaint/Hosp Course cellulites ckd hydronephrosis chronic plan per [facility] to home dr grant saw pt poss home today Problems: Subjective 24 Hr Interval Summary Respiratory: no complaints Cardiovascular: no complaints Exam/Review of Systems Vital Signs Vitals Vital Signs Date Time Temp Pulse Resp B/P Pulse Ox O2 Delivery O2 Flow Rate FiO2 11/30/16 08:18 98.4 80 18 136/82 96 11/27/16 23:03 Room Air Intake and Output 11/29/16 11/29/16 11/30/16 15:00 23:00 07:00 Intake Total 500 ml 1570 ml 2350 ml Output Total 2300 ml 2900 ml Balance 500 ml -730 ml -550 ml Exam Neck: supple Respiratory: clear to auscultation Cardiovascular: regular rate and rhythm Gastrointestinal: soft Musculoskeletal: nl extremities to inspection Extremities: edema (+) Results Result Diagram: 11/29/16 0425 11/29/16 0455 Results 24 hrs Laboratory Tests Test 11/29/16 19:00 11/30/16 13:20 Creatine Kinase 36 51 Creatine Kinase Index 4.5 Pending Creatinine Kinase MB (Mass) 1.63 Pending Troponin I < 0.010 Pending Cholesterol Level 116 Cholesterol/HDL Ratio 4.8 HDL Cholesterol 24 L LDL Cholesterol, Calculated 73 Triglycerides Level 96 Medications Medications Current Medications Sodium Chloride (NS) 1,000 ml @ 50 mls/hr Q20H IV Last administered on t 06:30; Admin Dose 50 MLS/HR; Start 11/27/16 at 22:45 Ondansetron HCl (Zofran Inj) 4 mg Q6H PRN IV NAUSEA AND/OR VOMITING; Start 11/27 at 23:00 Acetaminophen (Tylenol Tab) 650 mg Q6H PRN PO PAIN LEVEL 1-3 OR FEVER; Start at 23:00 Acetaminophen (Tylenol Supp) 650 mg Q6H PRN [place] PAIN LEVEL 1-3 OR FEVER; Start 11/27/16 at 23:00 Acetaminophen/ Hydrocodone Bitart ([place] (5/325)) 1 tab Q6H PRN PO MODERATE PAIN LEVEL 4-6; Start 11/27/16 at 23:00 Morphine Sulfate (morphine) 2 mg Q4H PRN IV SEVERE PAIN LEVEL 7-10; Start at 23:00 Docusate Sodium (Colace) 100 mg Q12H PRN PO CONSTIPATION; Start 11/27/16 at 23: 00 Magnesium Hydroxide (Milk Of Mag) 30 ml DAILY PRN PO CONSTIPATION; Start at 23:00 Bisacodyl (Dulcolax) 5 mg DAILY PRN PO CONSTIPATION; Start 11/27/16 at 23:00 Zolpidem Tartrate (Ambien) 5 mg QHS PRN PO SLEEP; Start 11/27/16 at 23:00 Pantoprazole (Protonix Tab) 40 mg DAILY@06 PO Last administered on 11/30/16 06 :23; Admin Dose 40 MG; Start 11/28/16 at 06:00 Enoxaparin Sodium 40 mg 40 mg DAILY SC ; Start 11/28/16 at 09:00 Vancomycin HCl (Vancocin) 250 ml @ 125 mls/hr Q24H IVPB Last administered on 08:30; Admin Dose 125 MLS/HR; Start 11/28/16 at 09:00 Metoprolol Tartrate (Lopressor) 25 mg BID PO ; Start 11/29/16 at 21:00 Miscellaneous Information 1 ONCE ONCE XX ; Start 12/01/16 at 08:00; Stop at 08:01 Magnesium Sulfate (Magnesium Sulfate 2 Gm/50 ml) 50 ml @ 25 mls/hr ONCE ONCE IVPB ; Start 11/30/16 at 14:30; Stop 11/30/16 at 16:29 JOSE ANTONIO JESUS MD Nov 30, 2016 14:56
[2016-11-30 15:35] LABS: CK-MB 1.33 ng/ml (0.0-2.4); TROPONIN-I < 0.010 ng/ml (0.00-0.12)
[2016-11-30 17:03] LABS: ALBUMIN 3.1 g/dl (3.3-4.9); POTASSIUM 3.9 mmol/L (3.5-5.1)
[2016-11-30 17:05] LABS: BILIRUBIN,INDIRECT 0.1 mg/dl (0-1.1); BILIRUBIN,TOTAL 0.1 mg/dl (0.2-1.3); CREATININE 1.36 mg/dl (0.61-1.24)
[2016-11-30 17:06] LABS: ALBUMIN/GLOBULIN RATIO 0.67; CALCIUM 8.3 mg/dl (8.4-10.2); TOTAL PROTEIN 7.7 g/dl (6.1-8.1)
--- NOTE | 2016-11-30 18:17 | PN ---
DATE: 11/30/2016 SUBJECTIVE: Urinary retention, atonic bladder. HISTORY OF PRESENT ILLNESS: Patient has urinary retention and chronic atonic bladder. He was doing intermittent self-catheterization with an old dirty catheter and he stopped doing that about a week ago. The patient now has an indwelling [place]dermott catheter and he is comfortable. PHYSICAL EXAMINATION: VITAL SIGNS: Temperature is 98.4, pulse is 80, respiration 18, blood pressure 136/82. ABDOMEN: Soft. The catheter is draining clear urine. LABORATORY DATA: His CBC shows a white count of 10.1, hemoglobin 10.2, hematocrit 30.7. BUN is 25, creatinine 1.36. It is improved since his admission when it was 1.71. The urine culture is showin g 100,000 of Strep agalactiae and 10,000 to 20,000 gram-negative rods. Sensitivity is pending. IMPRESSION: Urinary retention and chronic atonic bladder. The recommendation is that the patient s hould resume doing his intermittent self-catheterization every 6 hours and I have written the order earlier this morning to have the showcase trimmer arrange for him to have a home health nurse and the robles pplies that he needs through his insurance, so he will continue doing the intermittent self-catheter ization not use a dirty catheter. As I understand that he the nurse was told to give the patient a supply for 3 days, but no arrangements made beyond the 3 days. Therefore, I would not agree on the patient discharged. He should have arrangements made for home health nurse to visit him and bring h im the supplies. His insurance should cover these for him and the arrangement should be made throug h the insurance company to cover this patient's medical supplies for his intermittent self-catheteri zation. Dictated By: MILO BURCIAGA/JERSE[place] Conf#: [id number] DID#: [id number]
--- NOTE | 2016-12-04 23:16 | QN ---
Documentation Comment [id number] JOSE ANTONIO JESUS MD Dec 04, 2016 23:16
--- NOTE | 2016-12-05 15:57 | DS ---
DATE OF ADMISSION: 11/27/2016 DATE OF DISCHARGE: 11/30/2016 HOSPITAL COURSE: deliberate of abdominal is a 48-year-old male who presented with lower extremity redness and cellulitis. The patient also has underlying CKD, lactic acidosis, was seen by Dr. Walter West in consultation. A 2D echo , ejection fraction 60%. The patient was seen by ____ in consultation. No surgical intervention is needed. The patient's cellulitis of the lower extremities is getting better. The patient also was seen by Dr. Tyler Farley in consultation for chronic obstructive uropathy. He recommended patient to have home health and also further catheterization. The patient was cleared by the development consultant to be discharged home. DISCHARGE DIAGNOSES: Includes cellulitis, CKD, hydronephrosis, chronic. Patient has anemia. DISCHARGE MEDICATIONS: Continue on , Reglan, metoprolol. The patient to follow up as an outpatient to see Dr. Farley and as an outpatient. CONDITION: Patient is stable at the time of discharge. Dictated By: JOSE ANTONIO [place]/NTS Conf#: [id number] DID#: [id number]
== END 2016-11-30 22:09 | disposition left against medical advice (07) | DRG 603 ==
LOC: E/R 16:23 → PP2 21:15
PROVIDERS: ADMIT Internal Medicine Nephrology; ATTEND Internal Medicine Nephrology
DX: L03.116 Cellulitis of left lower limb (principal); E87.2 Acidosis; I83.208 Varicose veins of unspecified lower extremity with both ulcer of other part of lower extremity and inflammation; L97.819 Non-pressure chronic ulcer of other part of right lower leg with unspecified severity; L97.829 Non-pressure chronic ulcer of other part of left lower leg with unspecified severity; N13.30 Unspecified hydronephrosis; D64.9 Anemia, unspecified; N18.9 Chronic kidney disease, unspecified; R00.8 Other abnormalities of heart beat; Z72.0 Tobacco use; F15.90 Other stimulant use, unspecified, uncomplicated; N31.2 Flaccid neuropathic bladder, not elsewhere classified; N39.41 Urge incontinence; R33.9 Retention of urine, unspecified; I87.2 Venous insufficiency (chronic) (peripheral); L03.115 Cellulitis of right lower limb; E83.42 Hypomagnesemia
CPT/HCPCS: 36415; 71010; 76775; 80053; 80061; 81001; 81003; 82550; 82553; 83605; 83735; 84484; 85025; 85610; 85730; 87040; 87086; 93005; 93306; 93923; 96374; 96375; A4310; J1650; J3370; J3475; J7030

== ENCOUNTER 2017-12-18 20:10 | Emergency (ER) | END 2017-12-19 01:50 | disposition left against medical advice (07) ==

== ENCOUNTER 2018-10-04 11:45 | Emergency (ER) | END 2018-10-04 16:29 | disposition home or self-care (01) ==

== ENCOUNTER 2018-11-06 08:43 | Inpatient (IN) | payer OTHER ==
[~2018-11-06] VITALS: Ht 162.6 cm; Wt 70.0 kg
[~2018-11-06 08:43] MED LIST: BISA5TAB6 PO; CIPR500T4 PO; DOXY100T2 PO; DOXY100T20 PO; IBUP-1542 PO; METO-448 PO; TAMS-14 PO
[2018-11-06 08:47] VITALS: Ht 162.6 cm; Wt 70.0 kg
[2018-11-06] MEDS ORDERED: HYDROCODONE/APAP (10/325) TAB PO ONE (09:30)
[2018-11-06] MEDS ORDERED: SOD CHLORIDE 0.9% 1,000 ML IV SCH (10:21)
--- NOTE | 2018-11-06 10:21 | ERD ---
ER Documentation Chief Complaint Chief Complaint BIB RA FOR BILAT KNEE PAIN. RECENT LONG DISTANCE WALKING. (HOMELESS) HPI This is a 68-year-old male who just recently left AGAINST MEDICAL ADVICE for syncope with decreased blood flow in his left leg with a stasis ulcer as well as renal failure and anemia. The patient was brought in by EMS because he is too weak to stand and walk. The patient is a very poor historian and is tangential with his conversation. He says both of his knees hurt and is very weak and cannot walk anymore. He said he should not of left AMA. He is complaining of generalized weakness but denies any chest pain cough focal neurological complaints or recent GI symptoms. Patient smells of urine ROS All systems reviewed and are negative except as per history of present illness. Medications Home Meds Active Scripts Tamsulosin Hcl* (Flomax*) 0.4 Mg Cap.er.24h, 0.4 MG PO DAILY, #30 CAP Prov:FRANCA JEAN MD 10/04/18 Metoprolol Tartrate* (Lopressor*) 25 Mg Tab, 25 MG PO BID for 28 Days, #60 TAB Prov:JOSE ANTONIO JESUS MD 11/30/16 Discontinued Scripts Ciprofloxacin Hcl* (Ciprofloxacin Hcl*) 500 Mg Tablet, 500 MG PO BID for 7 Days, TAB Prov:FRANCA JEAN MD 10/04/18 Doxycycline* (Vibramycin*) 100 Mg Tab, 100 MG PO BID for 7 Days, TAB Prov:DIANE LOCKE 06/23/18 Ibuprofen* (Motrin*) 600 Mg Tab, 600 MG PO Q6H PRN for PAIN AND OR ELEVATED TEMP, #30 TAB Prov:JANA OSORIO NP 12/19/17 Doxycycline Hyclate* (Doxycycline Hyclate*) 100 Mg Tablet.dr, 100 MG PO BID for 14 Days, TAB Prov:JOSE ANTONIO JESUS MD 11/30/16 Bisacodyl* (Bisacodyl*) 5 Mg Tablet.dr, 5 MG PO DAILY PRN for CONSTIPATION for 28 Days, #30 Prov:JOSE ANTONIO JESUS MD 11/30/16 Allergies Allergies: Coded Allergies: Penicillins (Verified Allergy, Unknown, 11/06/18) PMhx/Soc History of Surgery: No Anesthesia Reaction: No Hx Neurological Disorder: No Hx Respiratory Disorders: No Hx Cardiac Disorders: No Hx Psychiatric Problems: No Hx Miscellaneous Medical Probl: Yes (CKD, HEPATITIS C , SMOKER DRUG ABUSE , H.OF LT LEG WOUND .) Hx Alcohol Use: No Hx Substance Use: Yes Hx Tobacco Use: Yes Smoking Status: Current every day smoker FmHx Family History: No coronary disease Physical Exam Vitals Vital Signs Date Temp Pulse Resp B/P (MAP) Pulse Ox O2 O2 Flow FiO2 Time Delivery Rate 11/06/18 98.3 108 16 143/88 99 08:47 (106) Physical Exam Const: Well-developed, well-nourished Head: Atraumatic, normocephalic Eyes: Normal Conjunctiva, PERRLA, EOMI, normal sclera, no nystagmus ENT: Normal External Ears, Nose and Mouth, moist mucus membranes. Neck: Full range of motion. No meningismus, no lymphadenopathy. Resp: Clear to auscultation bilaterally, no wheezing, rhonchi, rales Cardio: Regular rate and rhythm, no murmurs, S1 S2 present Abd: Soft, non tender x 4, non distended. Normal bowel sounds, no guarding or rebound, no pulsitile abdominal masses or bruits Skin: No petechiae or rashes, no ecchymosis , no maculopapular rash, the left anterior tidwell has a half dollar size stasis ulcer but does not look infected Back: No midline or flank tenderness Ext: No cyanosis, or edema, FROM x 2, both knees have classical are osteoarthritic changes with an effusion bilaterally no signs of erythema to the skin or septic knee joints. He has range of motion but painful, normal inspection, neurovascularly intact x 4 Neur: Awake and alert, STR 5/5 x 4, sensation intact x 4, no focal findings, cerebellum intact Psych: Normal Mood and Affect Result Diagram: 11/06/18 0930 11/06/18 0930 Results 24 hrs Laboratory Tests Test 11/06/18 09:30 White Blood Count 16.7 10^3/ul Red Blood Count 3.96 10^6/ul Hemoglobin 11.1 g/dl Hematocrit 36.3 % Mean Corpuscular Volume 91.7 fl Mean Corpuscular Hemoglobin 28.0 pg Mean Corpuscular Hemoglobin Concent 30.6 g/dl Red Cell Distribution Width 18.7 % Platelet Count 444 10^3/UL Mean Platelet Volume 9.4 fl Immature Granulocytes % 1.100 % Neutrophils % 80.1 % Lymphocytes % 6.7 % Monocytes % 11.5 % Eosinophils % 0.2 % Basophils % 0.4 % Nucleated Red Blood Cells % 0.0 /100WBC Immature Granulocytes # 0.190 10^3/ul Neutrophils # 13.4 10^3/ul Lymphocytes # 1.1 10^3/ul Monocytes # 1.9 10^3/ul Eosinophils # 0.0 10^3/ul Basophils # 0.1 10^3/ul Nucleated Red Blood Cells # 0.0 10^3/ul Sodium Level 141 mmol/L Potassium Level 5.4 mmol/L Chloride Level 104 mmol/L Carbon Dioxide Level 23 mmol/L Anion Gap 14 Blood Urea Nitrogen 50 mg/dl Creatinine 2.02 mg/dl Est Glomerular Filtrat Rate mL/min 33 mL/min Glucose Level 122 mg/dl Calcium Level 9.6 mg/dl Current Medications Medications Dose Sig/Guillermo Start Time Status Last (Trade) Ordered Route PRN Stop Time Admin Dose Reason Admin 1 tab ONCE ONCE 11/06/18 DC 11/06/18 Acetaminophen PO 09:30 09:32 / 11/06/18 Hydrocodone 09:31 Bitart ([place] ()) Procedures/MDM Ordering MD: CHRISTOPH MONTERROSO DO Location: E/R Room/Bed: PROCEDURE: Left knee series CLINICAL INDICATION: Pain status post trauma TECHNIQUE: AP and lateral views of the right knee COMPARISON: None available FINDINGS: No acute fractures or dislocations are present. Severe joint space narrowing is noted of the patellofemoral and medial greater than lateral joint compartments with osteophyte formation and sclerosis. A large suprapatellar knee effusion is present. No radiodense foreign bodies are present. IMPRESSION: 1. No acute fractures or dislocations are present. 2. Severe tricompartmental osteoarthritis is present. 3. Large knee effusion. Consider MR to further evaluate. RPTAT: HDC .Frances Bella MD, MD Date Time Electronically viewed and signed by .Frances Bella MD, MD on 11/06/2018 09:33 .C/ CC: CHRISTOPH MONTERROSO DO [id number] PROCEDURE: Right knee series CLINICAL INDICATION: Pain status post trauma TECHNIQUE: AP and lateral views of the right knee COMPARISON: None available FINDINGS: No acute fractures or dislocations are present. A large right suprapatellar knee effusion is present. Severe medial greater than patellofemoral and lateral joint compartment osteoarthritis is present. Chondrocalcinosis is noted in the lateral meniscus. No radiodense foreign bodies are present. IMPRESSION: 1. No acute fractures or dislocations. 2. Severe tricompartmental osteoarthritis as described above 3. Chondrocalcinosis of the lateral meniscus and correlate with CPPD 4. Large knee effusion and consider MR as clinically indicated. RPTAT: HDC .Frances Bella MD, MD Date Time Electronically viewed and signed by .Frances Bella MD, MD on 11/06/2018 0 9:35 .C/ CC: CHRISTOPH MONTERROSO DO [id number] The patient's creatinine was 1.71 he was last checked on 1213, and it is now 2.02 with elevated BUN of 50. He has elevated white blood count of 16.7 and his blood count is actually better than it was when he left. The patient is still unable to stand on his own he is very weak. I will obtain a urinalysis and chest x-ray blood cultures and give Zosyn. Stasis ulcer on his tidwell does not look infected. He is gravely disabled and is in need of some IV fluids as his creatinine is elevating and likely has a infection in his urine or chest. I paged Dr. Paiz for admission Departure Diagnosis: Primary Impression: Dehydration Additional Impressions: Generalized weakness Gravely disabled Osteoarthritis Osteoarthritis location: knee Osteoarthritis type: primary Laterality: bilateral Qualified Codes: M17.0 - Bilateral primary osteoarthritis of knee Condition: Stable CHRISTOPH MONTERROSO DO Nov 06, 2018 10:21
[2018-11-06] MEDS ORDERED: ACETAMINOPHEN 325 MG TAB PO PRN ×2 (10:30→15:30)
[2018-11-06] MEDS ORDERED: ONDANSETRON 4 MG INJ IV PRN ×2 (10:30→15:30)
[2018-11-06] MEDS ORDERED: LEVOFLOXACIN 750MG/D5W (PMX) 150 ML IVPB ONE (10:30)
--- NOTE | 2018-11-06 15:16 | QN ---
Documentation Comment Pt seen and examined DADA SNOW MD Nov 06, 2018 15:16
[2018-11-06] MEDS ORDERED: MAGNESIUM HYDROXIDE 30ML CUP PO PRN (15:30)
[2018-11-06] MEDS ORDERED: NACL 0.9% 3 ML SYG IV SCH (15:30)
--- NOTE | 2018-11-06 15:30 | NUR ---
Received pt. from ER unit via [employer]. Pt is alert, awake and verbally responsive. Respiration are even and non labored. Head to toe skin assessment done. Wound noted. Wound care rendered per protocol. Tolerated well. Pt has Mcdermott catheter in place. No hematuria noted. Per patient "I am here in the hospital couple of days ago and I walk from here to [place]" Reorient Pt. in his room and medical devices, call light and bed function. Call light within reach. Will continue to monitor.
[2018-11-06] MEDS: SOD CHLORIDE 0.9% 1,000 ML IV SCH (16:07)
--- NOTE | 2018-11-06 17:27 | CONS ---
Date/Time of Note Date/Time of Note DATE: 11/06/18 TIME: 17:25 Assessment/Plan Assessment/Plan Chief Complaint/Hosp Course Patient left AMA couple days ago now readmitted with recurrent bilateral lower extremities pain he is awake in no distress afebrile with stable vital signs WBC 16.7 H&H 11.1 and 36.3 platelets 444 neutrophils 80.1 BUN 50 creatinine 2.02 Urinalysis positive for leukocyte Estrace WBCs and few bacteria Antimicrobials: Levofloxacin PHYSICAL EXAMINATION: GENERAL: This is a chronically ill-appearing, wasted elderly man who is awake, in no distress. HEENT: Head is atraumatic, normocephalic. Sclerae are anicteric. Buccal mucosa is dry. NECK: Supple. CHEST: Rise symmetrical. Breath sounds diminished to bases. HEART: S1, S2. ABDOMEN: Soft. Bowel tones are present. EXTREMITIES: Bilateral lower extremities edema erythema and chronic ulcerations on left lower extremity ASSESSMENT: 1. Systemic inflammatory response syndrome 2. Bilateral lower lower extremities chronic cellulitis with vascular ulcers. 3. Recurrent UTI 4. Urinary retention 5. History of methicillin-resistant Staphylococcus aureus nares colonization. 6. Acute on chronic kidney disease. 7. History of polysubstance abuse. PLAN: Clinically stable add Bactroban to lower extremities, follow urine culture Consultation Date/Type/Reason Admit Date/Time Nov 06, 2018 at 10:22 Initial Consult Date Type of Consult ID Exam/Review of Systems Vital Signs Vitals Vital Signs Date Temp Pulse Resp B/P (MAP) Pulse Ox O2 O2 Flow FiO2 Time Delivery Rate 11/06/18 92 16 114/76 99 Room Air 14:56 (89) 11/06/18 98.0 13:00 PRINCESS EDMONDSON NP Nov 06, 2018 17:27
[2018-11-06 18:10] VITALS: BP 102/59; PULSE 85; RESP 18
--- NOTE | 2018-11-06 18:47 | NUR ---
No significant changes. Stable condition. Will endorse accordingly.
[2018-11-06 20:00] VITALS: BP 113/67; PULSE 91; RESP 18
--- NOTE | 2018-11-06 20:19 | HP ---
DATE OF ADMISSION: 11/06/2018 REASON FOR ADMISSION: Weakness. HISTORY OF PRESENTING ILLNESS: This is a 68-year-old male with past medical history of urinary reten tion, anemia, shingles of the right buttocks, history of hepatitis C, smoker and methamphetamine use, CKD, left leg wound with venous insufficiency. The patient was admitted in the hospital from 2017 until 11/04/2018. The patient had a prolonged hospitalization course was in shock secondary to urosepsis, Lovely UTI, MRSA staph colonization, cellulitis of lower extremities. The patient was fo llowed by multiple consultants. The patient also had a fall in the hospital times twice. Arrangemen ts were made for group home, but the patient required a sitter, so patient was not discharged home; however, the patient left AMA on 11/04/2018 against medical advice. According to the patient when alvaro jj left, he went straight walking from here until [place]. When he went to his house, he knocke d on the door and his friend said that he is no longer welcome there. He ended up staying in a car. One of his friends saw him and called paramedics. He said that both his knees are hurt and cannot w alk anymore. He should not have left AMA. The patient denies any cough, any nausea, vomiting. The patient had urinary retention last visit and asked to remove the Mcdermott. He said since discharge he o nly peed twice. PAST MEDICAL HISTORY: 1. Syncope secondary to hypotension. 2. Urinary retention. 3. Anemia. 4. History of hepatitis C. 5. History of smoking. 6. History of methamphetamine abuse. 7. History of CKD. 8. History of left leg wound with renal insufficiency. 9. Status post fall x2 with scalp hematoma. MEDICATIONS TAKING AT HOME: None. ALLERGIES: PENICILLIN. PAST SURGICAL HISTORY: Leg surgeries. SOCIAL HISTORY: The patient was staying in a car. He had history of smoking and methamphetamine use in the past. REVIEW OF SYSTEMS: The patient feels very weak, tired. Has only urinated twice. The patient now co mplains of pain in the knees likely secondary to walking. Denies any chest pain, any shortness of br eath. Denies any headache, any nausea, vomiting, diarrhea. FAMILY HISTORY: The patient has sisters; however, does not want to talk to them. PHYSICAL EXAMINATION: VITAL SIGNS: Currently blood pressure is 114/76, heart rate is 85, respirations 16, saturating 99% o n room air. GENERAL: The patient is awake, alert, oriented; however, sometimes changes conversation. NECK: Supple. No JVD. HEART: Regular rate, rhythm. LUNGS: Clear to auscultate bilaterally. ABDOMEN: Distended, some erythematous rash present on the abdomen. EXTREMITIES: The patient has multiple wound ulcers on the bilateral lower extremities. The patient has both knees swelling, tenderness to palpation. SKIN: Buttocks ulcer, shingles resolved. LABORATORY DATA: Showed sodium of 141, potassium 5.4, chloride 104, bicarbonate 23, BUN of 50, creat inine 2.02. On last discharge, creatinine was 1.73. White count is 16.7, on last discharge was 6.5, hemoglobin of 11.1, platelet count 444. UA here showed greater than RBCs, 2+ hemoglobin. IMAGING: Knee x-rays show no acute processes, severe tricompartmental osteoarthritis, right knee lar ge effusion, no acute fractures, chondrocalcinosis of the lateral meniscus. ASSESSMENT AND PLAN: This is a 68-year-old male who presented with: 1. Severe bilateral knee pain, questionable secondary to walking. The patient has history of osteoa rthritis. X-rays of the left knee showed a large knee effusion and osteoarthritis and x-ray of the r ight knee shows severe tricompartmental osteoarthritis, chondrocalcinosis, large knee effusion. 2. Leukocytosis likely secondary to urine infection. The patient has a history of urinary retention in the past and left without being have a Mcdermott and is not able to urinate much. 3. Mild hyperkalemia likely secondary to obstruction, worsening renal failure. 4. Acute on chronic renal disease secondary to obstruction/sepsis. 5. History of urinary retention. 6. Hepatitis C. 7. Homelessness. 8. History of anemia. 9. Bilateral lower extremity ulceration and significant stenosis by the lower extremity ultrasound. 10. History of smoking and methamphetamine use. PLAN: At this period of time, the patient will be admitted to med/surg unit. We will place a Mcdermott in. Since the patient has significant urinary retention, we will also send for urine cultures. The patient will be started on IV antibiotics. The patient will have pain control, physical therapy eval uation. The patient will need SNF placement. Rest of the treatment plan will depend on the patient' s hospitalization course. Dictated By: DADA CODY/JERSEY Conf#: [id number] DID#: [id number]
[2018-11-06] MEDS: MUPIROCIN 2% 22 GM OINT TOP SCH (20:43)
[2018-11-07 02:00] VITALS: BP 105/58; PULSE 97; RESP 18
[2018-11-07] MEDS: SOD CHLORIDE 0.9% 1,000 ML IV SCH ×2 (05:50→22:13)
[2018-11-07] MEDS ORDERED: PANTOPRAZOLE 40 MG INJ IV SCH (06:00)
--- NOTE | 2018-11-07 06:47 | NUR ---
VS are stable. No acute changes or s/s of respiratory distress during shift. Pt denies having pain. Mcdermott is patent and draining. MRSA of nares collected. Hourly rounding provided. Fall precautions observed with call light within reach. Will endorse continuity of care to oncoming nurse.
[2018-11-07 07:35] VITALS: BP 121/84; PULSE 83; RESP 16
[2018-11-07] MEDS: ENOXAPARIN 40 MG/0.4 ML SYG SC SCH ×2 (09:00→09:14)
[2018-11-07] MEDS: MUPIROCIN 2% 22 GM OINT TOP SCH ×2 (09:14→21:30)
--- NOTE | 2018-11-07 09:25 | NUR ---
Wound Care Consult: This is a 68-year-old male with past medical history of urinary retention, anemia, shingles of the right buttocks, history of hepatitis C, smoker and methamphetamine use, CKD, left leg wound with venous insufficiency. The patient was admitted in the hospital from 10/15/2018 until 11/04/2018. The patient had a prolonged hospitalization course was in shock secondary to urosepsis, Lovely UTI, MRSA staph colonization, cellulitis of lower extremities. The patient was followed by multiple consultants. The patient also had a fall in the hospital times twice. Arrangements were made for halfway, but the patient required a sitter, so patient was not discharged home; however, the patient left AMA on 11/04/2018 against medical advice. Wound care team consulted for wounds present on admission Left lower leg venous ulcer. 1.5cm x 2 cm x 0.1cm. Wound bed with noted pink-reg granulating tissue 90% and light yellow slough 10%. Annular wound edge noted. No drainage noted at this time. Denies pain. No odor. Periwound with noted hemosiderin stained skin from previous vascular problems. Treatment recommendation include, cleanse with normal saline, pat dry, apply Bactroban ointment and cover with foam border dressing daily and as needed. Left medial ankle venous ulcer. 2.5cm x 2.5cm x 0.1cm. Wound bed with noted pink-reg granulating tissue 90% and light yellow slough 10%. Annular wound edge noted. No drainage noted at this time. Denies pain. No odor. Periwound with noted hemosiderin stained skin from previous vascular problems. Treatment recommendation include, cleanse with normal saline, pat dry, apply Bactroban ointment and cover with foam border dressing daily and as needed. Right gluteal area rash, linear. No drainage, no odor. Cleanse with normal saline and place barrier cream for protection daily and as needed. Sacrococcyx skin clean and intact. Keep dry and intact. Bilateral heels clean and intact. Keep dry and intact. Reposition every 2 hours per department protocol Elevate heels with pillows to offload and promote circulation WOCN discussed assessment and treatment recommendation with Colette, unit RN. Unit RN to coordinate with PMD as discussed. Ray Nielson RN MSN WOCN CM
[2018-11-07] MEDS ORDERED: LEVOFLOXACIN 250MG/D5W (PMX) 50 ML IVPB ONE (10:00)
--- NOTE | 2018-11-07 10:03 | NUR ---
Pt still complaining of pain after giving tylenol. Spoke to Dr. Samayoa and give Toradol 50mg IV every 8hours as needed and relay message of wound care nurse for wound care recommendation Dr. Samayoa said ok. Order noted and carried out. Addendum: 11/07/18 at 1124 by SHON LEUNG RN error Toradol 15mg IV every 8 hours
[2018-11-07] MEDS ORDERED: KETOROLAC 30 MG INJ IV PRN (10:30)
[2018-11-07] MEDS: KETOROLAC 15 MG INJ IV PRN ×2 (11:36→21:30)
[2018-11-07 14:25] VITALS: BP 90/53; PULSE 77; RESP 16
--- NOTE | 2018-11-07 17:25 | PN ---
Date/Time of Note Date/Time of Note DATE: 11/07/18 TIME: 17:22 Assessment/Plan VTE Prophylaxis Risk score (from Ns)>0 risk: 3 SCD applied (from Ns): No SCD contraindicated: low risk/ambulating Pharmacological prophylaxis: LMWH Lines/Catheters IV [facility] [place] Urinary Cath still in place: Yes Reason Cath still needed: urinary retention Assessment/Plan Hospital Course 68 y/o with 1 Severe bilateral knee pain, questionable secondary to walking. The patient has history of osteoarthritis. X-rays of the left knee showed a large knee effusion and osteoarthritis and x-ray of the right knee shows severe tri compartmental osteoarthritis, chondrocalcinosis, large knee effusion. 2. Leukocytosis likely secondary to urine infection. The patient has a history of urinary retention in the past and left without being have a Mcdermott and is not able to urinate much.+UA , BLE cellulitis 3. Mild hyperkalemia likely secondary to obstruction, worsening renal failure. 4. Acute on chronic renal disease secondary to obstruction/sepsis. 5. History of urinary retention. 6. Hepatitis C. 7. Homelessness. 8. History of anemia. 9. Bilateral lower extremity ulceration and significant stenosis by the lower extremity ultrasound. 10. History of smoking and methamphetamine use. 11 SIRS Plan - iv fluids - cw iv levaquin - Dr Gonzalez to see pt - PT eval - Cr improvin - GI/DVT prophylaxsis pt will need snif placment Subjective 24 Hr Interval Summary Free Text/Dictation Pain in knees Exam/Review of Systems Vital Signs Vitals Vital Signs Date Temp Pulse Resp B/P (MAP) Pulse Ox O2 O2 Flow FiO2 Time Delivery Rate 11/07/18 97.5 77 16 90/53 (65) 97 High Flow 14:25 Intake and Output 11/06/18 11/06/18 11/07/18 1515:00 23:00 07:00 IntakeIntake Total 1000 ml 170 ml 1170 ml OutputOutput Total 1400 ml BalanceBalance 1000 ml 170 ml -230 ml Exam GENERAL: The patient is awake, alert, oriented; however, sometimes changes conversation. NECK: Supple. No JVD. HEART: Regular rate, rhythm. LUNGS: Clear to auscultate bilaterally. ABDOMEN: Distended, some erythematous rash present on the abdomen. EXTREMITIES: The patient has multiple wound ulcers on the bilateral lower extremities. The patient has both knees swelling, tenderness to palpation. SKIN: Buttocks ulcer, shingles resolved. DADA SNOW MD Nov 07, 2018 17:24
--- NOTE | 2018-11-07 19:00 | NUR ---
Pt is alert awake and verbally responsive. Respiration are even and non labored. New pain medication given effective and tolerated well. Dr. Samayoa seen the pt during this shift. Wound care nurse consult seen the patient during this shift and infor Addendum: 11/07/18 at 1953 by SHON LEUNG RN m Dr. Samayoa about the recommendation. Wound care rendered. Tolerated well. Pt is keep refusing to elevate his foot. Explain risk and benefits but pt. still refused. Will endorse accordingly
--- NOTE | 2018-11-07 19:12 | CONS ---
Date/Time of Note Date/Time of Note DATE: 11/07/18 TIME: 19:11 Assessment/Plan Assessment/Plan Chief Complaint/Hosp Course Alert, looks comfortable, no fevers Antimicrobials: s/p Levofloxacin PHYSICAL EXAMINATION: GENERAL: This is a chronically ill-appearing, wasted elderly man who is awake, in no distress. HEENT: Head is atraumatic, normocephalic. Sclerae are anicteric. Buccal mucosa is dry. NECK: Supple. CHEST: Rise symmetrical. Breath sounds diminished to bases. HEART: S1, S2. ABDOMEN: Soft. Bowel tones are present. EXTREMITIES: Bilateral lower extremities edema erythema and chronic ulcerations on left lower extremity ASSESSMENT: 1. Systemic inflammatory response syndrome 2. Bilateral lower lower extremities chronic cellulitis with vascular ulcers. 3. Recurrent UTI===> GNR 4. Urinary retention 5. History of methicillin-resistant Staphylococcus aureus nares colonization. 6. Acute on chronic kidney disease. 7. History of polysubstance abuse. PLAN: Clinically stable, will follow urine culture Consultation Date/Type/Reason Admit Date/Time Nov 06, 2018 at 10:22 Initial Consult Date Type of Consult ID Exam/Review of Systems Vital Signs Vitals Vital Signs Date Temp Pulse Resp B/P (MAP) Pulse Ox O2 O2 Flow FiO2 Time Delivery Rate 11/07/18 97.5 77 16 90/53 (65) 97 High Flow 14:25 Intake and Output 11/06/18 11/06/18 11/07/18 1515:00 23:00 07:00 IntakeIntake Total 1000 ml 170 ml 1170 ml OutputOutput Total 1400 ml BalanceBalance 1000 ml 170 ml -230 ml PRINCESS EDMONDSON NP Nov 07, 2018 19:12
[2018-11-07] MEDS ORDERED: BETAMET NA PHOS/AC(6 MG/ML) 5ML INJ INJ ONE (20:00)
[2018-11-07] MEDS ORDERED: BUPIVACAINE 0.5%/EPI (SDV) 30 ML INJ INJ ONE (20:00)
[2018-11-07 20:14] VITALS: BP 124/61; PULSE 74; RESP 20
--- NOTE | 2018-11-08 01:49 | CONS ---
DATE OF ADMISSION: 11/06/2018 DATE OF CONSULTATION: 11/07/2018 HISTORY OF PRESENT ILLNESS: The patient is a 68-year-old male with multiple medical problems, who wa s hospitalized in [facility] from 10/15/2018 through 11/04/2018 because of urosepsi s. He obviously left hospital against medical advice on 11/04/2018. However, he was brought back to the emergency room on 11/06/2018 and was admitted because he was not able to walk because of the cr n involving his both knees. He has multiple medical problems including the history of syncopal attack because of the hypertension , urinary retention, anemia, history of hepatitis C, history of methamphetamine abuse, history of chr onic kidney disease, chronic wound involving the left leg, and renal insufficiency. He was rather uncooperative during the history taking and physical examination. He had this pain for a long time, but he does not recall how long. He seems to have arthroscopic surgical procedures don e in the left knee before. PHYSICAL EXAMINATION: My examination revealed a 68-year-old male who is not in any acute distress at this time. There was mild tenderness and swelling involving his both knees. Range of motion of the knee was limited with pain. There was tenderness along the joint line. There were no gross instabi lities. There were no signs of any acute pyogenic process such as redness, increased warmth or acute tenderness. DIAGNOSTIC STUDIES: X-rays of both knees revealed a presence of degenerative osteoarthritis involvin g all 3 compartment which is moderately advanced. DIAGNOSTIC IMPRESSION: Degenerative osteoarthritis of both knees, advanced. RECOMMENDATIONS FOR TREATMENT: Steroid injection into both knees for temporary symptomatic relief. He may need a total knee replacement in the near future when his other condition is stable. Dictated By: NICOLAS LEDEZMA/NTS Conf#: [id number] DID#: [id number] CC: DADA SNOW;*EndCC*
[2018-11-08 01:59] VITALS: BP 114/61; PULSE 80; RESP 18
--- NOTE | 2018-11-08 05:35 | NUR ---
RN Notes Patient had no changes in condition during shift. Patient was seen by Dr. Gonzalez yesterday evening for bilateral knee pain. Dr. Gonzalez administered steroid injections to bilateral knee, patient tolerated procedure well. Patient received pain medication as needed for pain. No further complaints of pain upon pain reassessment. Hourly rounding provided, safety precautions maintained. Patient's bed kept at lowest position with bed alarm activated, call light button within reach. Will continue to monitor and endorse to oncoming shift accordingly.
[2018-11-08] MEDS: PANTOPRAZOLE (EC) 40 MG TAB PO SCH (05:40)
[2018-11-08] MEDS ORDERED: LEVOFLOXACIN 500 MG TAB PO SCH (06:00)
[2018-11-08 07:35] VITALS: BP 121/60; PULSE 91; RESP 16
[2018-11-08] MEDS: MUPIROCIN 2% 22 GM OINT TOP SCH ×2 (08:32→20:58)
[2018-11-08] MEDS: ENOXAPARIN 40 MG/0.4 ML SYG SC SCH (08:32)
[2018-11-08] MEDS ORDERED: CEFTRIAXONE 1 GM/50 ML (PMX) 50 ML IVPB SCH (10:30)
--- NOTE | 2018-11-08 11:05 | PN ---
Date/Time of Note Date/Time of Note DATE: 11/08/18 TIME: 11:03 Assessment/Plan VTE Prophylaxis Risk score (from Ns)>0 risk: 3 SCD applied (from Ns): No SCD contraindicated: bilateral LE trauma Pharmacological prophylaxis: LMWH Lines/Catheters IV C[facility]ter Type (from [facility]): Peripheral IV Urinary Cath still in place: Yes Reason Cath still needed: urinary retention Assessment/Plan Hospital Course 1 Severe bilateral knee pain, questionable secondary to walking. The patient has history of osteoarthritis. X-rays of the left knee showed a large knee effusion and osteoarthritis and x-ray of the right knee shows severe tricompartmental osteoarthritis, chondrocalcinosis, large knee effusion. 2. Leukocytosis likely secondary to urine infection. The patient has a history of urinary retention in the past and left without being have a Arceo and is not able to urinate much.+UA , BLE cellulitis 3. Mild hyperkalemia likely secondary to obstruction, worsening renal failure. 4. Acute on chronic renal disease secondary to obstruction/sepsis. 5. History of urinary retention. 6. Hepatitis C. 7. Homelessness. 8. History of anemia. 9. Bilateral lower extremity ulceration and significant stenosis by the lower extremity ultrasound. 10. History of smoking and methamphetamine use. 11 SIRS Assessment/Plan -c/w iv fluids - cw iv Rocephin - orthoconsult Dr Lisa green pt - PT eval - Cr improving - GI prophylaxis Protonix -DVT prophylaxis Lovenox -SNF placement, spoke to case management, pending Subjective 24 Hr Interval Summary Musculoskeletal: bone/joint pain (better) Exam/Review of Systems Vital Signs Vitals Vital Signs Date Temp Pulse Resp B/P (MAP) Pulse Ox O2 O2 Flow FiO2 Time Delivery Rate 11/08/18 98.1 91 16 121/60 99 07:35 (80) 11/07/18 High Flow 14:25 Intake and Output 11/07/18 11/07/18 11/08/18 1515:00 23:00 07:00 IntakeIntake Total 600 ml 1200 ml 880 ml OutputOutput Total 950 ml 1000 ml BalanceBalance 600 ml 250 ml -120 ml Exam Constitutional: alert, oriented Respiratory: normal air movement Cardiovascular: regular rate and rhythm Genitourinary - Male: other (arceo) DIANE LOCKE Nov 08, 2018 11:05
--- NOTE | 2018-11-08 14:00 | NUR ---
SS Note: Consult Pt referred to SW regarding homelessness. The patient is a 68-year-old male with past medical history of urinary retention, anemia, hepatitis C, smoker and methamphetamine use, CKD, left leg wound with venous insufficiency, per record. Pt has hx of leaving AMA multiple times. SW met with pt at bedside to provide support, complete psychosocial assessment, and link pt to appropriate resources as needed. Pt awake, alert, and oriented x4. Pt easily irritable but cooperative with SW. Pt reported he is and has 1 daughter who is not in contact with. Pt stated he has two sisters who he hasn't communicated with and refused to provide their names or contact information to this remote mortgage underwriter. Pt reported being homeless x1-2 years. Pt stated he's been staying in the streets or with friends and does not have a place to go anymore. Pt stated he receives SSI $850/month, but does not have his bank card for 2-3 months. Pt stated normally he is independent with his ADL's and was using a cane to ambulate. 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 Pt reported past hx of methamphetamine use. Pt unable to state last day he used meth but he has "not used it for a while" and has no desire to use it again. SW provided active listening, support, and reassurance. SW encouraged compliance with tx and not leave AMA again. SW discussed pt's wishes regarding placement. Pt stated he is willing to explore different options. He agreed to SNF if recommended. SW also introduced the [facility], however, pt not a candidate at this time due to severity of knee condition. SIRI discussed case with CM. Dispo plan will depend on pt's progress. PT eval also pending. SW will continue to follow and assist with facilitating d/c. SW advised RN to notify MD pt will be a difficult SNF placement as H&P states methamphetamine abuse and if they can update last time pt used meth in progress note as it will assist with SNF referral process.
[2018-11-08 14:26] VITALS: BP 103/60; PULSE 81; RESP 18
--- NOTE | 2018-11-08 14:55 | NUR ---
PT EVAL Therapy day number 1 Evaluation Start Time 14:55 Evaluation Total Time 0 min Subjective Denies pain Pain Scale NUMERIC Pain Intensity 0 (0-10) Patient Stated Goal for Pain Relief 0 (0-10) Pain Level Comment denies pain Pre Treatment Vital Signs Stable Yes Exercise Assessment Label Bilat Lower Extremity Exercise Type Active ROM Additional Exercise Comments refused Supine to Sit Moderate Assist Transfer Sit to Stand Ability Contact Guard Assist Bed Mobility Sit to Supine Stand by Assist Bed Transfer Ability Contact Guard Assist Chair Transfer Ability Contact Guard Assist Sitting Tolerance 20 min Patient uses wheelchair Not Applicable Gait Assist Levels Contact Guard Assist Assistive Devices Front Wheel Walker Single Point Cane Ambulation Distance 80 feet Additional Gait Comments 80' with FWW; 80' with SPC; see PT note for details Static Sitting Balance Good Dynamic Sitting Balance Good Standing Static Balance Fair plus Dynamic Standing Balance Fair Additional Balance Assessments Comments with SPC Safety Judgement Fair Activity Tolerance Fair Equipment Present Mcdermott Catheter Post Treatment Pain Intensity 0 0-10 Variance Documentation SEE PT EVAL PT Technical Record Comment PT EVAL Pt is a 68 yo M with PMH of urinary retention, anemia, shingles in R buttock, Hep C, smoker, methamphetamine use, CKD, L leg wound with venous insufficiency and previous admit 2/2 urosepsis, cardida UTI, MRSA, cellulitis of L leg 10/15 - 11/04 from which he left AMA. Apparently pt left AMA and walked to [place] and now presented to [facility] with B knee pain, leukocytosis 2/2 urine infection and mild hyperkalemia. Pt received in 2E, med/surg. PLOF: Per EMR, pt is homeless and was staying in a car. Pt reports he was ambulatory using a SPC. CLOF: FRANCO Mares cleared pt for PT evaluation. Pt received in bed, vitals assessed at 120/69, 96%O2 sats on RA, 88bpm. Pt educated in fall prcautions, safety awareness, and purpose of PT evaluation. Pt adamantly refused PT evaluation at first, agreeable after maximum encouragement. Bed mobility, transfer, and gait assessment as above. Noted with gait with FWW - steady, stable, slow alex; with gait with SPC - wide BIGG, reciprocal, slow alex. Pt returned to bed, all needs in reach, bed alarm activated, no signs of distress. RN notified of pt's status. Recommendation: Pt demonstrates mild balance deficits, requiring AD for ambulation, trialed amb with FWW and SPC. Gait distance (80') limited due to pt refusing to ambulate further. Pt adamantly expresses unwillingness to participate in physical therapy during current hospital stay. Pt will benefit from additional skilled PT services during hospital stay for further gait normalization with use of SPC and to improve balance. Pt would benefit from d/c to post-acute setting for further therapies to maximize independence prior to discharge vs d/c based on manager social media recommendation. Pt may benefit from FWW. Plan: Continue c PT POC (3x/wk)
--- NOTE | 2018-11-08 16:45 | NUR ---
ORDER SNF PLACEMENT; FAXED TO [facility], [facility] AND [facility] , SPOKE TO [facility] PENDING ACCEPTANCE. Addendum: 11/08/18 at 1646 by WILBUR HANEY CM Amended: Links added.
--- NOTE | 2018-11-08 17:25 | CONS ---
Date/Time of Note Date/Time of Note DATE: 11/08/18 TIME: 17:24 Assessment/Plan Assessment/Plan Chief Complaint/Hosp Course Alert, looks comfortable, no fevers Urine culture grew E. coli and yeast Allergy: Penicillin PHYSICAL EXAMINATION: GENERAL: This is a chronically ill-appearing, wasted elderly man who is awake, in no distress. HEENT: Head is atraumatic, normocephalic. Sclerae are anicteric. Buccal mucosa is dry. NECK: Supple. CHEST: Rise symmetrical. Breath sounds diminished to bases. HEART: S1, S2. ABDOMEN: Soft. Bowel tones are present. EXTREMITIES: Bilateral lower extremities edema erythema and chronic ulcerations on left lower extremity ASSESSMENT: 1. Systemic inflammatory response syndrome 2. Bilateral lower lower extremities chronic cellulitis with vascular ulcers. 3. Recurrent UTI===> GNR 4. Urinary retention 5. History of methicillin-resistant Staphylococcus aureus nares colonization. 6. Acute on chronic kidney disease. 7. History of polysubstance abuse. PLAN: Clinically stable, were going to give him a short course of Invanz and start him on fluconazole Consultation Date/Type/Reason Admit Date/Time Nov 06, 2018 at 10:22 Initial Consult Date Type of Consult ID Exam/Review of Systems Vital Signs Vitals Vital Signs Date Temp Pulse Resp B/P (MAP) Pulse Ox O2 O2 Flow FiO2 Time Delivery Rate 11/08/18 98.1 81 18 103/60 96 Room Air 14:26 (74) Intake and Output 11/07/18 11/07/18 11/08/18 1515:00 23:00 07:00 IntakeIntake Total 600 ml 1200 ml 880 ml OutputOutput Total 950 ml 1000 ml BalanceBalance 600 ml 250 ml -120 ml PRINCESS EDMONDSON NP Nov 08, 2018 17:25
[2018-11-08] MEDS: ERTAPENEM SODIUM 1 GM in SOD CHLORIDE 0.9% 100 ML IVPB SCH (17:37)
[2018-11-08] MEDS: FLUCONAZOLE 100 MG TAB PO SCH (17:37)
[2018-11-08] MEDS: SOD CHLORIDE 0.9% 1,000 ML IV SCH (17:48)
--- NOTE | 2018-11-08 18:47 | NUR ---
Patient with stable vitals throughout shift. Tolerating current treatment regimen. Reports 0/10 pain throughout shift s/p steroid injection. IV in left upper arm infiltrated and is swollen. Patient denied having pain but RN noticed swelling while assessing before connecting ATB. Applied ice and elevated arm. Patient voicing multiple times throughout shift that he is ready to go home. RN reinforced need for IV ATB and hydration at this time. Endorsing care to next shift
[2018-11-08 20:47] VITALS: BP 117/62; PULSE 75; RESP 18
[2018-11-09 02:05] VITALS: BP 119/89; PULSE 81; RESP 18
[2018-11-09] MEDS: SOD CHLORIDE 0.9% 1,000 ML IV SCH ×3 (05:29→21:12)
[2018-11-09] MEDS: PANTOPRAZOLE (EC) 40 MG TAB PO SCH (05:29)
--- NOTE | 2018-11-09 05:42 | NUR ---
RN Notes Patient had no change in condition overnight. Remained afebrile and did not complain of any pain or discomfort. Swelling decreased to left upper extremity post IV infiltration. IV to right upper extremity patent, no redness or swelling observed. Hourly rounding provided to patient. Bed kept at lowest po Addendum: 11/09/18 at 0546 by ARSLAN BENITES RN Bed kept at lowest position for safety. Will continue to monitor and endorse accordingly.
[2018-11-09 07:25] VITALS: BP 107/69; PULSE 79; RESP 16
--- NOTE | 2018-11-09 08:00 | NUR ---
Patient's pre breakfast blood sugar was 60. Dhaval c/o symptoms r/t hypoglycemia. Gave 4oz apple juice per hypoglycemia protocol and recheck sugar 15 minutes later and BS was 64. Gave another 4oz apple juice and called MD. Dr. Joiner gave order to hold mealtime dose of NovoLog. After 15 minutes, rechecked BS was 87. Patient currently eating breakfast. Rechecked sugar again 15 minutes later and BG 117. Blood glucose stable at this time. Will continue to monitor and notify MD if condition changes.
[2018-11-09] MEDS: ENOXAPARIN 40 MG/0.4 ML SYG SC SCH (08:03)
[2018-11-09] MEDS: MUPIROCIN 2% 22 GM OINT TOP SCH ×2 (08:29→20:57)
[2018-11-09] MEDS: FLUCONAZOLE 100 MG TAB PO SCH (08:29)
--- NOTE | 2018-11-09 11:24 | NUR ---
RECEIVED REPORT FROM FRANCO MANIRQUE. PT IN STABLE CONDITION. TOOK OVER CARE OF PT AT THIS TIME.
--- NOTE | 2018-11-09 11:43 | NUR ---
CASE MNGT: CALLED [facility] (T: [phone]) AND SPOKE WITH , LEFT A MESSAGE FOR [facility] & AWAITING FOR CALLBACK.
--- NOTE | 2018-11-09 13:03 | PN ---
Date/Time of Note Date/Time of Note DATE: 11/09/18 TIME: 13:01 Assessment/Plan VTE Prophylaxis Risk score (from Ns)>0 risk: 3 SCD applied (from Ns): No SCD contraindicated: other Pharmacological prophylaxis: LMWH Lines/Catheters IV [facility] Type (from [facility]): Peripheral IV Urinary Cath still in place: Yes Reason Cath still needed: urinary retention Assessment/Plan Hospital Course 1 Severe bilateral knee pain, questionable secondary to walking. The patient has history of osteoarthritis. X-rays of the left knee showed a large knee effusion and osteoarthritis and x-ray of the right knee shows severe tricompartmental osteoarthritis, chondrocalcinosis, large knee effusion. 2. Leukocytosis likely secondary to urine infection. The patient has a history of urinary retention in the past and left without being have a Arceo and is not able to urinate much.+UA , BLE cellulitis 3. Mild hyperkalemia likely secondary to obstruction, worsening renal failure. 4. Acute on chronic renal disease secondary to obstruction/sepsis. 5. History of urinary retention. 6. Hepatitis C. 7. Homelessness. 8. History of anemia. 9. Bilateral lower extremity ulceration and significant stenosis by the lower extremity ultrasound. 10. History of smoking and methamphetamine use. 11 SIRS Assessment/Plan -c/w iv fluids - cw iv ertapenem - orthoconsult Dr Lisa green pt - PT eval - Cr improving - GI prophylaxis Protonix -DVT prophylaxis Lovenox -SNF placement, spoke to case management, pending Subjective 24 Hr Interval Summary Constitutional: no complaints, improved Exam/Review of Systems Vital Signs Vitals Vital Signs Date Temp Pulse Resp B/P (MAP) Pulse Ox O2 O2 Flow FiO2 Time Delivery Rate 11/09/18 97.5 79 16 107/69 98 Room Air 07:25 (82) Intake and Output 11/08/18 11/08/18 11/09/18 1515:00 23:00 07:00 IntakeIntake Total 700 ml 840 ml 1445 ml OutputOutput Total 800 ml 350 ml 1575 ml BalanceBalance -100 ml 490 ml -130 ml Exam Constitutional: alert, oriented Respiratory: diminished breath sounds Cardiovascular: regular rate and rhythm Gastrointestinal: soft Genitourinary - Male: other (arceo) DIANE LOCKE Nov 09, 2018 13:03
[2018-11-09] MEDS: ENOXAPARIN 30 MG/0.3 ML SYG SC SCH (13:30)
[2018-11-09 14:06] VITALS: BP 115/75; PULSE 76; RESP 16
--- NOTE | 2018-11-09 15:30 | CONS ---
Date/Time of Note Date/Time of Note DATE: 11/09/18 TIME: 15:28 Consultation Date/Type/Reason Admit Date/Time Nov 06, 2018 at 10:22 Initial Consult Date SUBJECTIVE: Patient is awake, alert, afebrile. VS: Stable T:97.9 LABS: Reviewed. WBC-13.6 MICROBIOLOGY: URINE CULTURE Final Organism 1 YEAST,NOT LD ALBICANS COLONY COUNT <10,000 CFU/ml Urine culture grew E. coli and yeast Allergy: Penicillin PHYSICAL EXAMINATION: GENERAL: This is a chronically ill-appearing, wasted elderly man who is awake, in no distress. HEENT: Head is atraumatic, normocephalic. Sclerae are anicteric. Buccal mucosa is dry. NECK: Supple. CHEST: Rise symmetrical. Breath sounds diminished to bases. HEART: S1, S2. ABDOMEN: Soft. Bowel tones are present. EXTREMITIES: Bilateral lower extremities edema erythema and chronic ulcerations on left lower extremity ASSESSMENT: 1. Systemic inflammatory response syndrome 2. Bilateral lower lower extremities chronic cellulitis with vascular ulcers. 3. Recurrent UTI===> GNR 4. Urinary retention 5. History of methicillin-resistant Staphylococcus aureus nares colonization. 6. Acute on chronic kidney disease. 7. History of polysubstance abuse. PLAN: Clinically stable. Continue with IV Invanz and PO fluconazole. Exam/Review of Systems Vital Signs Vitals Vital Signs Date Temp Pulse Resp B/P (MAP) Pulse Ox O2 O2 Flow FiO2 Time Delivery Rate 11/09/18 97.9 76 16 115/75 98 Room Air 14:06 (88) Intake and Output 11/08/18 11/08/18 11/09/18 1515:00 23:00 07:00 IntakeIntake Total 700 ml 840 ml 1445 ml OutputOutput Total 800 ml 350 ml 1575 ml BalanceBalance -100 ml 490 ml -130 ml ELISABET SYKES Nov 09, 2018 15:30
[2018-11-09] MEDS: ERTAPENEM SODIUM 1 GM in SOD CHLORIDE 0.9% 100 ML IVPB SCH (16:14)
--- NOTE | 2018-11-09 17:53 | NUR ---
EOSS: PT STABLE THROUGHOUT REMAINDER OF SHIFT. CANE GIVEN TO PT FROM DISTRIBUTION PT REQUESTED, PT AMBULATED THROUGHOUT UNIT WITH AUTOMATIC SPINNING LATHE OPERATOR. IV ABX GIVEN, IVF ONGOING. ALL DUE MEDS GIVEN, HOURLY ROUNDING COMPLETED. WILL ENDORSE CARE OF PT TO ONCOMING WELT SEWER RN.
[2018-11-09 19:27] VITALS: BP 117/73; PULSE 84; RESP 18
[2018-11-10 02:00] VITALS: BP 119/75; PULSE 68; RESP 18
[2018-11-10] MEDS: PANTOPRAZOLE (EC) 40 MG TAB PO SCH (05:30)
--- NOTE | 2018-11-10 05:57 | NUR ---
pt alert,oriented x4, no sob, denies pain. wound care done as ordered,tolerated well. no significant changes noted
[2018-11-10 08:05] VITALS: BP 116/64; PULSE 60; RESP 17
[2018-11-10] MEDS: ENOXAPARIN 30 MG/0.3 ML SYG SC SCH (09:00)
[2018-11-10] MEDS: FLUCONAZOLE 100 MG TAB PO SCH (09:06)
--- NOTE | 2018-11-10 09:45 | PN ---
Date/Time of Note Date/Time of Note DATE: 11/10/18 TIME: 09:43 Assessment/Plan VTE Prophylaxis Risk score (from Ns)>0 risk: 6 [place] [facility] SCD contraindicated: patient refusal Pharmacological prophylaxis: LMWH Lines/Catheters IV Catheter Type (from [facility]): Peripheral IV Urinary Cath still in place: Yes Reason Cath still needed: urinary retention Assessment/Plan Hospital Course 1 Severe bilateral knee pain, questionable secondary to walking. The patient has history of osteoarthritis. X-rays of the left knee showed a large knee effusion and osteoarthritis and x-ray of the right knee shows severe tricompartmental osteoarthritis, chondrocalcinosis, large knee effusion. 2. Leukocytosis likely secondary to urine infection. The patient has a history of urinary retention in the past and left without being have a Arceo and is not able to urinate much.+UA ,yeast in urine 3. Mild hyperkalemia likely secondary to obstruction, worsening renal failure. 4. Acute on chronic renal disease secondary to obstruction/sepsis. 5. History of urinary retention. 6. Hepatitis C. 7. Homelessness. 8. History of anemia. 9. Bilateral lower extremity ulceration and significant stenosis by the lower extremity ultrasound. 10. History of smoking and methamphetamine use. 11 SIRS Assessment/Plan -c/w iv fluids -Kayexalate once - cw iv ertapenem and Fluconazole. - orthoconsult Dr Gonzalez saw pt - PT eval - Cr improving - GI prophylaxis Protonix -DVT prophylaxis Lovenox -SNF placement, spoke to case management, pending Subjective 24 Hr Interval Summary Constitutional: no complaints Exam/Review of Systems Vital Signs Vitals Vital Signs Date Temp Pulse Resp B/P (MAP) Pulse Ox O2 O2 Flow FiO2 Time Delivery Rate 11/10/18 97.7 60 17 116/64 99 08:05 (81) 11/09/18 Room Air 14:06 Intake and Output 11/09/18 11/09/18 11/10/18 1515:00 23:00 07:00 IntakeIntake Total 650 ml 1655 ml 1195 ml OutputOutput Total 900 ml 1400 ml 1600 ml BalanceBalance -250 ml 255 ml -405 ml Exam Constitutional: alert, oriented Cardiovascular: regular rate and rhythm Gastrointestinal: soft Genitourinary - Male: other (arceo); No nl penis, No nl scrotum, No discharge MEZENTSEVA,DIANE Nov 10, 2018 09:45
[2018-11-10] MEDS ORDERED: NA POLYST SULFON 15 GM/60 ML BTL PO ONE ×2 (10:00→12:30)
[2018-11-10] MEDS: MUPIROCIN 2% 22 GM OINT TOP SCH ×2 (11:54→21:39)
[2018-11-10] MEDS: VORICONAZOLE 200 MG TAB PO SCH ×2 (11:54→21:39)
--- NOTE | 2018-11-10 13:35 | CONS ---
Date/Time of Note Date/Time of Note DATE: 11/10/18 TIME: 13:34 Assessment/Plan Assessment/Plan Chief Complaint/Hosp Course Patient is alert feels good denies pain no fevers overnight, vital signs stable Microbiology: Repeat urine culture growing yeast, not Lovely albicans Allergy: Penicillin PHYSICAL EXAMINATION: GENERAL: This is a chronically ill-appearing, wasted elderly man who is awake, in no distress. HEENT: Head is atraumatic, normocephalic. Sclerae are anicteric. Buccal mucosa is dry. NECK: Supple. CHEST: Rise symmetrical. Breath sounds diminished to bases. HEART: S1, S2. ABDOMEN: Soft. Bowel tones are present. EXTREMITIES: Bilateral lower extremities edema erythema and chronic ulcerations on left lower extremity ASSESSMENT: 1. Systemic inflammatory response syndrome 2. Bilateral lower lower extremities chronic cellulitis with vascular ulcers. 3. Recurrent UTI===> GNR 4. Urinary retention 5. History of methicillin-resistant Staphylococcus aureus nares colonization. 6. Acute on chronic kidney disease. 7. History of polysubstance abuse. PLAN: Clinically stable, change fluconazole to voriconazole, will give last dose of Invanz tonight Consultation Date/Type/Reason Admit Date/Time Nov 06, 2018 at 10:22 Initial Consult Date Type of Consult ID Exam/Review of Systems Vital Signs Vitals Vital Signs Date Temp Pulse Resp B/P (MAP) Pulse Ox O2 O2 Flow FiO2 Time Delivery Rate 11/10/18 97.7 60 17 116/64 99 08:05 (81) 11/09/18 Room Air 14:06 Intake and Output 11/09/18 11/09/18 11/10/18 1515:00 23:00 07:00 IntakeIntake Total 650 ml 1655 ml 1195 ml OutputOutput Total 900 ml 1400 ml 1600 ml BalanceBalance -250 ml 255 ml -405 ml PRINCESS EDMONDSON NP Nov 10, 2018 13:35
[2018-11-10 15:25] VITALS: BP 120/70; PULSE 65; RESP 17
[2018-11-10] MEDS: SOD CHLORIDE 0.9% 1,000 ML IV SCH (16:36)
[2018-11-10] MEDS: ERTAPENEM SODIUM 1 GM in SOD CHLORIDE 0.9% 100 ML IVPB SCH (16:36)
--- NOTE | 2018-11-10 18:07 | NUR ---
Continues antibiotic tx via IVPB for ecoli urine no adverse side effects, fluids encouraged and IV hydration dx for dehydration. Assisted ADLS with use single cane safety measures provided, arceo catheter intact no hematuria. No sob , no acute distress and VS within range. Possible discharge tomorrow with oral antibiotics all needs met will continue POC.
[2018-11-10 20:07] VITALS: BP 94/55; PULSE 71; RESP 18
[2018-11-10] MEDS ORDERED: VORICONAZOLE 200 MG TAB PO SCH (21:00)
[2018-11-11 02:27] VITALS: BP 120/67; PULSE 78; RESP 20
[2018-11-11] MEDS: PANTOPRAZOLE (EC) 40 MG TAB PO SCH (06:00)
[2018-11-11] MEDS: SOD CHLORIDE 0.9% 1,000 ML IV SCH (06:11)
--- NOTE | 2018-11-11 06:35 | NUR ---
Pt alert and oriented. Al needs attended to. Wound dressing done per orders, pt tolerated. Fall precautions maintained. Bed alarm on, call light within reach.
[2018-11-11 08:10] VITALS: BP 94/51; PULSE 67; RESP 18
[2018-11-11] MEDS: VORICONAZOLE 200 MG TAB PO SCH ×2 (08:52→21:20)
[2018-11-11] MEDS: MUPIROCIN 2% 22 GM OINT TOP SCH ×2 (08:54→21:20)
[2018-11-11] MEDS: ENOXAPARIN 30 MG/0.3 ML SYG SC SCH (08:55)
[2018-11-11 11:00] VITALS: BP 136/66; PULSE 65
--- NOTE | 2018-11-11 11:47 | NUR ---
FF UP SNF PLACEMENT: [facility] ,ADMISSIONS NOT IN TODAY; [facility]FERR[facility] AWAITS ACCEPTANCE. Addendum: 11/11/18 at 1148 by WILBUR HANEY CM Amended: Links added.
--- NOTE | 2018-11-11 14:00 | NUR ---
patient refused lovenox dose this morning as ordered.explained to him how important to take this medication.he verbalized understanding .notified Yao Katz regarding the patient refused lovenox .
--- NOTE | 2018-11-11 14:16 | PN ---
Date/Time of Note Date/Time of Note DATE: 11/11/18 TIME: 14:13 Assessment/Plan VTE Prophylaxis Risk score (from Ns)>0 risk: 2 SCD applied (from Ns): No SCD contraindicated: low risk/ambulating Pharmacological prophylaxis: LMWH Pharm contraindication: low risk/ambulating Lines/Catheters [facility] Type (from [facility]): Peripheral IV Urinary Cath still in place: Yes Reason Cath still needed: urinary retention Assessment/Plan Hospital Course 68 y/o with 1 Severe bilateral knee pain, questionable secondary to walking. The patient has history of osteoarthritis. X-rays of the left knee showed a large knee effusion and osteoarthritis and x-ray of the right knee shows severe tricompartmental osteoarthritis, chondrocalcinosis, large knee effusion. 2. Leukocytosis likely secondary to urine infection. The patient has a history of urinary retention in the past and left without being have a Arceo and is not able to urinate much.+UA , BLE cellulitis 3. Mild hyperkalemia likely secondary to obstruction, worsening renal failure. 4. Acute on chronic renal disease secondary to obstruction/sepsis. 5. History of urinary retention. 6. Hepatitis C. 7. Homelessness. 8. History of anemia. 9. Bilateral lower extremity ulceration and significant stenosis by the lower extremity ultrasound. 10. History of smoking and methamphetamine use. 11 SIRS WITH UTI gnr and yeast Plan - dc fluids - iv invanz and voriconazole - f/u PT recs - Cr improving - cw Arceo - GI/DVT prophylaxsis pt will need snif placment, per pt has not used Meth/ cocaine for many many months and Urine drug screen negative also this admission Result Diagram: 11/11/18 0551 11/11/18 0551 Results 24hrs Laboratory Tests Test 11/11/18 05:51 White Blood Count 12.8 H Red Blood Count 2.99 L Hemoglobin 8.5 L Hematocrit 27.6 L Mean Corpuscular Volume 92.3 Mean Corpuscular Hemoglobin 28.4 L Mean Corpuscular Hemoglobin Concent 30.8 L Red Cell Distribution Width 18.5 H Platelet Count 360 Mean Platelet Volume 9.9 Immature Granulocytes % 4.300 H Neutrophils % 72.7 Lymphocytes % 13.5 L Monocytes % 8.4 Eosinophils % 0.7 Basophils % 0.4 Nucleated Red Blood Cells % 0.0 Immature Granulocytes # 0.550 H Neutrophils # 9.3 H Lymphocytes # 1.7 Monocytes # 1.1 H Eosinophils # 0.1 Basophils # 0.1 Nucleated Red Blood Cells # 0.0 Sodium Level 141 Potassium Level 4.9 Chloride Level 112 H Carbon Dioxide Level 22 Anion Gap 7 Blood Urea Nitrogen 37 H Creatinine 1.36 H Est Glomerular Filtrat Rate mL/min 52 L Glucose Level 89 Calcium Level 8.2 L Subjective 24 Hr Interval Summary Free Text/Dictation Feels better Exam/Review of Systems Vital Signs Vitals Vital Signs Date Temp Pulse Resp B/P (MAP) Pulse Ox O2 O2 Flow FiO2 Time Delivery Rate 11/11/18 97.8 67 18 94/51 (65) 97 08:10 11/10/18 Room Air 15:25 Intake and Output 11/10/18 11/10/18 11/11/18 1515:00 23:00 07:00 IntakeIntake Total 1090 ml 1000 ml OutputOutput Total 2200 ml 2000 ml BalanceBalance -1110 ml -1000 ml Exam Constitutional: alert, oriented Cardiovascular: regular rate and rhythm Gastrointestinal: soft Genitourinary - Male: other (arceo); No nl penis, No nl scrotum, No discharge knee TTP ARCEO Medications Medications Current Medications Sodium Chloride 1,000 ml @ 70 mls/hr [id number] IV Last administered on 11/11/18at 06:11; Admin Dose 70 MLS/HR; Start 11/06/18 at 15:28 IV Flush (NS 3 ml) 3 ml PER PROTOCOL IV ; Start 11/06/18 at 15:30 Ondansetron HCl (Zofran Inj) 4 mg Q6H PRN IV NAUSEA AND/OR VOMITING; Start 11/06/18 at 15:30 Acetaminophen (Tylenol Tab) 650 mg Q6H PRN PO PAIN LEVEL 1-3 OR FEVER; Start 11/06/18 at 15:30 Magnesium Hydroxide (Milk Of Mag) 30 ml DAILY PRN PO CONSTIPATION; Start 11/06/18 at 15:30 Mupirocin (Bactroban) 1 applic BID TOP Last administered on 11/11/18at 08:54; Admin Dose 1 APPLIC; Start 11/06/18 at 21:00 Pantoprazole (Protonix Tab) 40 mg DAILY@06 PO Last administered on 11/09/18at 05:29; Admin Dose 40 MG; Start 11/08/18 at 06:00 Enoxaparin Sodium (Lovenox) 30 mg DAILY SC ; Start 11/09/18 at 13:30 Voriconazole (Vfend) 200 mg BID PO Last administered on 11/11/18at 08:52; Admin Dose 200 MG; Start 11/10/18 at 12:00 DADA SNOW MD Nov 11, 2018 14:16
--- NOTE | 2018-11-11 14:39 | CONS ---
Date/Time of Note Date/Time of Note DATE: 11/11/18 TIME: 14:38 Assessment/Plan Assessment/Plan Chief Complaint/Hosp Course Patient is alert feels good Microbiology: Repeat urine culture growing yeast, not Lovely albicans Allergy: Penicillin Abx: Vfend PHYSICAL EXAMINATION: GENERAL: This is a chronically ill-appearing, wasted elderly man who is awake, in no distress. HEENT: Head is atraumatic, normocephalic. Sclerae are anicteric. Buccal mucosa is dry. NECK: Supple. CHEST: Rise symmetrical. Breath sounds diminished to bases. HEART: S1, S2. ABDOMEN: Soft. Bowel tones are present. EXTREMITIES: Bilateral lower extremities edema erythema and chronic ulcerations on left lower extremity ASSESSMENT: 1. Systemic inflammatory response syndrome 2. Bilateral lower lower extremities chronic cellulitis with vascular ulcers. 3. Recurrent UTI===> GNR 4. Urinary retention 5. History of methicillin-resistant Staphylococcus aureus nares colonization. 6. Acute on chronic kidney disease. 7. History of polysubstance abuse. PLAN: Remains stable, continue present care Consultation Date/Type/Reason Admit Date/Time Nov 06, 2018 at 10:22 Initial Consult Date Type of Consult ID Exam/Review of Systems Vital Signs Vitals Vital Signs Date Temp Pulse Resp B/P (MAP) Pulse Ox O2 O2 Flow FiO2 Time Delivery Rate 11/11/18 97.8 67 18 94/51 (65) 97 08:10 11/10/18 Room Air 15:25 Intake and Output 11/10/18 11/10/18 11/11/18 1515:00 23:00 07:00 IntakeIntake Total 1090 ml 1000 ml OutputOutput Total 2200 ml 2000 ml BalanceBalance -1110 ml -1000 ml Medications Medications Current Medications Sodium Chloride 1,000 ml @ 70 mls/hr [id number] IV Last administered on 11/11/18at 06:11; Admin Dose 70 MLS/HR; Start 11/06/18 at 15:28 IV Flush (NS 3 ml) 3 ml PER PROTOCOL IV ; Start 11/06/18 at 15:30 Ondansetron HCl (Zofran Inj) 4 mg Q6H PRN IV NAUSEA AND/OR VOMITING; Start 11/06/18 at 15:30 Acetaminophen (Tylenol Tab) 650 mg Q6H PRN PO PAIN LEVEL 1-3 OR FEVER; Start 11/06/18 at 15:30 Magnesium Hydroxide (Milk Of Mag) 30 ml DAILY PRN PO CONSTIPATION; Start 11/06/18 at 15:30 Mupirocin (Bactroban) 1 applic BID TOP Last administered on 11/11/18at 08:54; Admin Dose 1 APPLIC; Start 11/06/18 at 21:00 Pantoprazole (Protonix Tab) 40 mg DAILY@06 PO Last administered on 11/09/18at 05:29; Admin Dose 40 MG; Start 11/08/18 at 06:00 Enoxaparin Sodium (Lovenox) 30 mg DAILY SC ; Start 11/09/18 at 13:30 Voriconazole (Vfend) 200 mg BID PO Last administered on 11/11/18at 08:52; Admin Dose 200 MG; Start 11/10/18 at 12:00 PRINCESS EDMONDSON NP Nov 11, 2018 14:39
[2018-11-11 14:52] VITALS: BP 115/56; PULSE 70; RESP 18
--- NOTE | 2018-11-11 16:16 | NUR ---
PT Note Therapy day number 2 Subjective Denies pain Pain Scale NUMERIC Pain Intensity 0 (0-10) Patient Stated Goal for Pain Relief 0 (0-10) Pain Level Comment No pain reported Pre Treatment Vital Signs Stable Yes Exercise Assessment Label Bilat Lower Extremity Additional Exercise Comments pt refused LE exercise Supine to Sit Modified Independent Transfer Sit to Stand Ability Supervised Bed Mobility Sit to Supine Modified Independent Bed Transfer Ability Supervised Chair Transfer Ability Supervised Patient uses wheelchair Not Applicable Gait Training Start Time 15:20 Gait Assist Levels Stand by Assist Assistive Devices Single Point Cane Ambulation Distance 150 feet Additional Gait Comments excess ER RLE, narrow BIGG, occassional drift to L side, no LOB Gait Training End Time 15:43 Total Gait Training Treatment Time 23 min (8-127) Static Sitting Balance Good Dynamic Sitting Balance Good Standing Static Balance Fair plus Dynamic Standing Balance Fair Safety Judgement Fair Activity Tolerance Fair Equipment Present Mcdermott Catheter IV pump Post Treatment Pain Intensity 0 0-10 Total Treament Time 23 min (8-127) Total Minutes 23 Total Units 2 PT Technical Record Comment S: Pt supine in bed, reluctant but ultimately agreeable to PT. "I think it's useless. I want to get out of here and I was told I can get out faster if I work with you." RN cleared pt for activity. O: Pt was seen for gait training with SPC, refused LE exercises. Pt returned to bed with call light nearby, bed alarm on. No pain, dizziness, SOB during treatment. RN informed of pt response to activity and plan of care. A: Pt supervised with sit-stand, SBA for 150' ambulation with SPC. Pt ambulates with narrow BIGG, excess ER on RLE, and occasional trunk lean to the L. Slow, reciprocal steps, with no LOB; however pt continues to demonstrate slightly impaired balance during gait. Pt unable to answer whether this is normal for him, responding "this is a dumb question. I'm in a hospital, this isn't normal." Unable to assess whether pt is at his baseline. Pt can benefit from continued gait training with SPC and balance training. P: Continue POC 3x/week.
--- NOTE | 2018-11-11 18:16 | NUR ---
all needs met.no acute events.gave all meds as ordered.call light within reach.bed alarm on.he is resting comfortably in bed.
[2018-11-11 20:00] VITALS: BP 117/68; PULSE 64; RESP 18
[2018-11-12] MEDS: SOD CHLORIDE 0.9% 1,000 ML IV SCH ×2 (00:10→03:16)
[2018-11-12] MEDS: PANTOPRAZOLE (EC) 40 MG TAB PO SCH (05:30)
--- NOTE | 2018-11-12 06:33 | NUR ---
Pt alert and oriented. Al needs attended to. Wound dressing done pt tolerated. Fall precautions maintained. Bed alarm on, call light within reach.
[2018-11-12 07:52] VITALS: BP 144/65; PULSE 59; RESP 16
[2018-11-12] MEDS: MUPIROCIN 2% 22 GM OINT TOP SCH ×2 (08:21→20:41)
[2018-11-12] MEDS: ENOXAPARIN 30 MG/0.3 ML SYG SC SCH (08:21)
[2018-11-12] MEDS: VORICONAZOLE 200 MG TAB PO SCH ×2 (08:21→20:40)
--- NOTE | 2018-11-12 10:54 | CONS ---
Date/Time of Note Date/Time of Note DATE: 11/12/18 TIME: 10:53 Assessment/Plan Assessment/Plan Chief Complaint/Hosp Course No acute changes, looks comfortable, afebrile Microbiology: Repeat urine culture growing yeast, not Lovely albicans Allergy: Penicillin Abx: Vfend PHYSICAL EXAMINATION: GENERAL: This is a chronically ill-appearing, wasted elderly man who is awake, in no distress. HEENT: Head is atraumatic, normocephalic. Sclerae are anicteric. Buccal mucosa is dry. NECK: Supple. CHEST: Rise symmetrical. Breath sounds diminished to bases. HEART: S1, S2. ABDOMEN: Soft. Bowel tones are present. EXTREMITIES: Bilateral lower extremities edema erythema and chronic ulcerations on left lower extremity ASSESSMENT: 1. Systemic inflammatory response syndrome 2. Bilateral lower lower extremities chronic cellulitis with vascular ulcers. 3. Recurrent UTI 4. Urinary retention 5. History of methicillin-resistant Staphylococcus aureus nares colonization. 6. Acute on chronic kidney disease. 7. History of polysubstance abuse. PLAN: Remains stable, continue present care Consultation Date/Type/Reason Admit Date/Time Nov 06, 2018 at 10:22 Initial Consult Date Type of Consult ID Exam/Review of Systems Vital Signs Vitals Vital Signs Date Temp Pulse Resp B/P (MAP) Pulse Ox O2 O2 Flow FiO2 Time Delivery Rate 11/12/18 98.3 59 16 144/65 100 07:52 (91) 11/10/18 Room Air 15:25 Intake and Output 11/11/18 11/11/18 11/12/18 1515:00 23:00 07:00 IntakeIntake Total 600 ml 1410 ml OutputOutput Total 1401 ml 1200 ml BalanceBalance -801 ml 210 ml Medications Medications Current Medications Sodium Chloride 1,000 ml @ 70 mls/hr [id number] IV Last administered on 11/12/18at 03:16; Admin Dose 70 MLS/HR; Start 11/06/18 at 15:28 IV Flush (NS 3 ml) 3 ml PER PROTOCOL IV ; Start 11/06/18 at 15:30 Ondansetron HCl (Zofran Inj) 4 mg Q6H PRN IV NAUSEA AND/OR VOMITING; Start 11/06/18 at 15:30 Acetaminophen (Tylenol Tab) 650 mg Q6H PRN PO PAIN LEVEL 1-3 OR FEVER; Start 11/06/18 at 15:30 Magnesium Hydroxide (Milk Of Mag) 30 ml DAILY PRN PO CONSTIPATION; Start 11/06/18 at 15:30 Mupirocin (Bactroban) 1 applic BID TOP Last administered on 11/12/18at 08:21; Admin Dose 1 APPLIC; Start 11/06/18 at 21:00 Pantoprazole (Protonix Tab) 40 mg DAILY@06 PO Last administered on 11/09/18at 05:29; Admin Dose 40 MG; Start 11/08/18 at 06:00 Enoxaparin Sodium (Lovenox) 30 mg DAILY SC ; Start 11/09/18 at 13:30 Voriconazole (Vfend) 200 mg BID PO Last administered on 11/12/18at 08:21; Admin Dose 200 MG; Start 11/10/18 at 12:00 PRINCESS EDMONDSON NP Nov 12, 2018 10:54
[2018-11-12 14:31] VITALS: BP 126/65; RESP 16
--- NOTE | 2018-11-12 17:32 | NUR ---
RN Notes: Patient remains alert and oriented, afebrile, no acute distress noted, no sob noted, c/o pain Tylenol adm as ordered with some relief. Pt refused Lovenox and wound care explained the importance of and reeducated regarding risk/benefits per pt he does not want any injection and his wound dressing still intact and clean in appearance, Dr. Gamino aware. Also pt refused to changed his IV Bag (NS) per pt he does need IV fluid he eat good and drink well, Dr. Gamino made aware and received order to D/C NS IV order. Hourly rounding done, call light within reach, bed alarm on. Will continue to monitor and will endorse for continuity of care.
--- NOTE | 2018-11-12 17:44 | PN ---
Date/Time of Note Date/Time of Note DATE: 11/12/18 TIME: 17:42 Assessment/Plan VTE Prophylaxis Risk score (from Ns)>0 risk: 4 SCD applied (from [facility]): No SCD contraindicated: other Pharmacological prophylaxis: warfarin tx, other Lines/Catheters IV C[facility]ter Type (from [facility]): Peripheral IV Urinary Cath still in place: Yes Reason Cath still needed: other (indicate) Assessment/Plan Hospital Course ADRIAN BETTER CKD SEPSIS ASHD PLAN CONTINUE PER ID Result Diagram: 11/12/18 0536 11/12/18 0536 Results 24hrs Laboratory Tests Test 11/12/18 05:36 White Blood Count 13.2 H Red Blood Count 2.91 L Hemoglobin 8.2 L Hematocrit 26.5 L Mean Corpuscular Volume 91.1 Mean Corpuscular Hemoglobin 28.2 L Mean Corpuscular Hemoglobin Concent 30.9 L Red Cell Distribution Width 18.6 H Platelet Count 327 Mean Platelet Volume 9.8 Immature Granulocytes % 5.000 H Neutrophils % 68.8 Lymphocytes % 15.3 Monocytes % 8.8 Eosinophils % 1.8 Basophils % 0.3 Nucleated Red Blood Cells % 0.0 Immature Granulocytes # 0.660 H Neutrophils # 9.1 H Lymphocytes # 2.0 Monocytes # 1.2 H Eosinophils # 0.2 Basophils # 0.0 Nucleated Red Blood Cells # 0.0 Sodium Level 141 Potassium Level 5.0 Chloride Level 108 Carbon Dioxide Level 26 Anion Gap 7 Blood Urea Nitrogen 33 H Creatinine 1.37 H Est Glomerular Filtrat Rate mL/min 51 L Glucose Level 85 Calcium Level 8.3 L Phosphorus Level 4.1 Magnesium Level 1.8 Subjective 24 Hr Interval Summary Respiratory: no complaints Cardiovascular: no complaints Gastrointestinal: no complaints Exam/Review of Systems Vital Signs Vitals Vital Signs Date Temp Pulse Resp B/P (MAP) Pulse Ox O2 O2 Flow FiO2 Time Delivery Rate 11/12/18 98.0 16 126/65 97 14:31 (85) 11/12/18 59 07:52 11/10/18 Room Air 15:25 Intake and Output 11/11/18 11/11/18 11/12/18 1515:00 23:00 07:00 IntakeIntake Total 600 ml 1410 ml OutputOutput Total 1401 ml 1200 ml 2200 ml BalanceBalance -801 ml 210 ml -2200 ml Exam Neck: supple Respiratory: clear to auscultation Cardiovascular: regular rate and rhythm Gastrointestinal: soft Medications Medications Current Medications IV Flush (NS 3 ml) 3 ml PER PROTOCOL IV ; Start 11/06/18 at 15:30 Ondansetron HCl (Zofran Inj) 4 mg Q6H PRN IV NAUSEA AND/OR VOMITING; Start at 15:30 Acetaminophen (Tylenol Tab) 650 mg Q6H PRN PO PAIN LEVEL 1-3 OR FEVER Last administered on 11/12/18at 11:25; Admin Dose 650 MG; Start 11/06/18 at 15:30 Magnesium Hydroxide (Milk Of Mag) 30 ml DAILY PRN PO CONSTIPATION; Start 11/06/18 at 15:30 Mupirocin (Bactroban) 1 applic BID TOP Last administered on 11/12/18at 08:21; Admin Dose 1 APPLIC; Start 11/06/18 at 21:00 Pantoprazole (Protonix Tab) 40 mg DAILY@06 PO Last administered on 11/09/18at 05:29; Admin Dose 40 MG; Start 11/08/18 at 06:00 Enoxaparin Sodium (Lovenox) 30 mg DAILY SC ; Start 11/09/18 at 13:30 Voriconazole (Vfend) 200 mg BID PO Last administered on 11/12/18at 08:21; Admin Dose 200 MG; Start 11/10/18 at 12:00 JOSE ANTONIO JESUS MD Nov 12, 2018 17:44
[2018-11-12 19:37] VITALS: BP 113/62; PULSE 70; RESP 20
[2018-11-13 01:56] VITALS: BP 137/73; PULSE 69; RESP 18
[2018-11-13] MEDS: PANTOPRAZOLE (EC) 40 MG TAB PO SCH (05:12)
--- NOTE | 2018-11-13 06:24 | NUR ---
Pt alert and oriented. Denies pain. All needs attended to. Fall precautions maintained. Bed alarm on, call light within reach.
[2018-11-13 07:51] VITALS: BP 120/73; PULSE 63; RESP 16
[2018-11-13] MEDS: VORICONAZOLE 200 MG TAB PO SCH ×2 (08:57→21:09)
[2018-11-13] MEDS: ENOXAPARIN 30 MG/0.3 ML SYG SC SCH (08:58)
[2018-11-13] MEDS: MUPIROCIN 2% 22 GM OINT TOP SCH ×2 (08:59→21:09)
--- NOTE | 2018-11-13 12:09 | NUR ---
ORDER SNF PLACEMENT; ACCEPTED [facility], [facility] DEPARTMENT SUPERVISOR COMING OVER TO SEE PATIENT TODAY IN ROOM 2252 Addendum: 11/13/18 at 1210 by WILBUR HANEY Amended: Links added.
--- NOTE | 2018-11-13 12:19 | NUR ---
SS Note: F/U Per CM, pt accepted at [facility]. SW provided update he was accepted to [facility] and they are sending someone to speak with him. Pt verbalized understanding and thankful for update.
--- NOTE | 2018-11-13 12:45 | CONS ---
Date/Time of Note Date/Time of Note DATE: 11/13/18 TIME: 12:45 Assessment/Plan Assessment/Plan Hospital Course Alert feels good denies pain, no fevers overnight Microbiology: Repeat urine culture growing yeast, not Lovely albicans Allergy: Penicillin Abx: Vfend PHYSICAL EXAMINATION: GENERAL: This is a chronically ill-appearing, wasted elderly man who is awake, in no distress. HEENT: Head is atraumatic, normocephalic. Sclerae are anicteric. Buccal mucosa is dry. NECK: Supple. CHEST: Rise symmetrical. Breath sounds diminished to bases. HEART: S1, S2. ABDOMEN: Soft. Bowel tones are present. EXTREMITIES: Bilateral lower extremities edema erythema and chronic ulcerations on left lower extremity ASSESSMENT: 1. Systemic inflammatory response syndrome 2. Bilateral lower lower extremities chronic cellulitis with vascular ulcers. 3. Recurrent UTI 4. Urinary retention 5. History of methicillin-resistant Staphylococcus aureus nares colonization. 6. Acute on chronic kidney disease. 7. History of polysubstance abuse. PLAN: Remains stable, continue present care Result Diagram: 11/12/18 0536 11/12/18 0536 Consultation Date/Type/Reason Admit Date/Time Nov 06, 2018 at 10:22 Initial Consult Date Type of Consult ID Exam/Review of Systems Vital Signs Vitals Vital Signs Date Temp Pulse Resp B/P (MAP) Pulse Ox O2 O2 Flow FiO2 Time Delivery Rate 11/13/18 98.3 63 16 120/73 98 07:51 (89) 11/10/18 Room Air 15:25 Intake and Output 11/12/18 11/12/18 11/13/18 1515:00 23:00 07:00 IntakeIntake Total 660 ml 2240 ml 480 ml OutputOutput Total 2200 ml BalanceBalance 660 ml 40 ml 480 ml Medications Medications Current Medications IV Flush (NS 3 ml) 3 ml PER PROTOCOL IV ; Start 11/06/18 at 15:30 Ondansetron HCl (Zofran Inj) 4 mg Q6H PRN IV NAUSEA AND/OR VOMITING; Start 11/06/18 at 15:30 Acetaminophen (Tylenol Tab) 650 mg Q6H PRN PO PAIN LEVEL 1-3 OR FEVER Last administered on 11/12/18at 11:25; Admin Dose 650 MG; Start 11/06/18 at 15:30 Magnesium Hydroxide (Milk Of Mag) 30 ml DAILY PRN PO CONSTIPATION; Start 11/06/18 at 15:30 Mupirocin (Bactroban) 1 applic BID TOP Last administered on 11/13/18at 08:59; Admin Dose 1 APPLIC; Start 11/06/18 at 21:00 Pantoprazole (Protonix Tab) 40 mg DAILY@06 PO Last administered on 11/09/18at 05:29; Admin Dose 40 MG; Start 11/08/18 at 06:00 Enoxaparin Sodium (Lovenox) 30 mg DAILY SC ; Start 11/09/18 at 13:30 Voriconazole (Vfend) 200 mg BID PO Last administered on 11/13/18at 08:57; Admin Dose 200 MG; Start 11/10/18 at 12:00 PRINCESS EDMONDSON NP Nov 13, 2018 12:45
--- NOTE | 2018-11-13 14:18 | NUR ---
PT NOTE , 3 Subjective Denies pain Pain Scale NUMERIC Pain Intensity 0 (0-10) Patient Stated Goal for Pain Relief 0 (0-10) Pain Level Comment n/a Pre Treatment Vital Signs Stable Yes Supine to Sit Independent Transfer Sit to Stand Ability Independent Bed Mobility Sit to Supine Independent Sitting Tolerance 5 min Patient uses wheelchair Not Applicable Gait Training Start Time 13:10 Gait Assist Levels Stand by Assist Assistive Devices Single Point Cane Ambulation Distance 300 feet Gait Training End Time 13:35 Total Gait Training Treatment Time 25 min (8-127) Weight Bearing Assessment Label Bilat Lower Extremity Weight Bearing Status Full Weight Bearing Static Sitting Balance Good Dynamic Sitting Balance Good Standing Static Balance Good Dynamic Standing Balance Fair plus Additional Balance Assessments Comments WITH SPC . Safety Judgement Fair Activity Tolerance Good Equipment Present Mcdermott Catheter Post Treatment Pain Intensity 0 0-10 Total Treament Time 25 min (8-127) Total Minutes 25 Total Units 2 PT Technical Record Comment PT NOTE , RN CLEARED ,PATIENT AGREEABLE . PATIENT ONLY AGREED TO GAIT TR W/SPC , GAIT TR PERFORMED 300' SBA , GAIT WITH CANE OCC,UNSTEADY, TAKNIG UNEVEN STEPS , OCC,SWAYS TO LT , VC'S REQUIRES FOR SAFETY AND GAIT NORMALIZATION , VS STABLE , TOLERATED TREATMENT WELL . A: SNF /REHAB PLACEMENT ONCE CLEARED BY . P: CONTINUE WITH POC DAILY X3 .
--- NOTE | 2018-11-13 14:29 | PN ---
Date/Time of Note Date/Time of Note DATE: 11/13/18 TIME: 14:27 Assessment/Plan VTE Prophylaxis Risk score (from Ns)>0 risk: 4 SCD applied (from [facility] [place] No SCD contraindicated: low risk/ambulating Pharmacological prophylaxis: NA/contraindicated Pharm contraindication: low risk/ambulating Lines/Catheters IV Catheter Type (from [facility]): Saline Lock Urinary Cath still in place: Yes Reason Cath still needed: urinary retention Assessment/Plan Hospital Course 68 y/o with 1 Severe bilateral knee pain, questionable secondary to walking. The patient has history of osteoarthritis. X-rays of the left knee showed a large knee effusion and osteoarthritis and x-ray of the right knee shows severe tricompartmental osteoarthritis, chondrocalcinosis, large knee effusion. 2. Leukocytosis likely secondary to urine infection. The patient has a history of urinary retention in the past and left without being have a Arceo and is not able to urinate much.+UA , BLE cellulitis 3. Mild hyperkalemia likely secondary to obstruction, worsening renal failure. 4. Acute on chronic renal disease secondary to obstruction/sepsis. 5. History of urinary retention. 6. Hepatitis C. 7. Homelessness. 8. History of anemia. 9. Bilateral lower extremity ulceration and significant stenosis by the lower extremity ultrasound. 10. History of smoking and methamphetamine use. 11 SIRS WITH UTI gnr and yeast Plan - CW voriconazole - f/u PT recs - Cr improving - cw Arceo - GI/DVT prophylaxsis SNIF Result Diagram: 11/12/18 0536 11/12/18 0536 Subjective 24 Hr Interval Summary Free Text/Dictation Feels well. Working with physical therapy Exam/Review of Systems Vital Signs Vitals Vital Signs Date Temp Pulse Resp B/P (MAP) Pulse Ox O2 O2 Flow FiO2 Time Delivery Rate 11/13/18 98.3 63 16 120/73 98 07:51 (89) 11/10/18 Room Air 15:25 Intake and Output 11/12/18 11/12/18 11/13/18 1414:59 22:59 06:59 IntakeIntake Total 660 ml 2240 ml 480 ml OutputOutput Total 2200 ml 2200 ml BalanceBalance -1540 ml 40 ml 480 ml Exam Constitutional: alert, oriented Cardiovascular: regular rate and rhythm Gastrointestinal: soft Genitourinary - Male: other (arceo); No nl penis, No nl scrotum, No discharge knee TTP ARCEO Medications Medications Current Medications IV Flush (NS 3 ml) 3 ml PER PROTOCOL IV ; Start 11/06/18 at 15:30 Ondansetron HCl (Zofran Inj) 4 mg Q6H PRN IV NAUSEA AND/OR VOMITING; Start 11/06/18 at 15:30 Acetaminophen (Tylenol Tab) 650 mg Q6H PRN PO PAIN LEVEL 1-3 OR FEVER Last administered on 11/12/18at 11:25; Admin Dose 650 MG; Start 11/06/18 at 15:30 Magnesium Hydroxide (Milk Of Mag) 30 ml DAILY PRN PO CONSTIPATION; Start 11/06/18 at 15:30 Mupirocin (Bactroban) 1 applic BID TOP Last administered on 11/13/18at 08:59; Admin Dose 1 APPLIC; Start 11/06/18 at 21:00 Pantoprazole (Protonix Tab) 40 mg DAILY@06 PO Last administered on 11/09/18at 05:29; Admin Dose 40 MG; Start 11/08/18 at 06:00 Enoxaparin Sodium (Lovenox) 30 mg DAILY SC ; Start 11/09/18 at 13:30 Voriconazole (Vfend) 200 mg BID PO Last administered on 11/13/18at 08:57; Admin Dose 200 MG; Start 11/10/18 at 12:00 DADA SNOW MD Nov 13, 2018 14:29
--- NOTE | 2018-11-13 14:33 | PDOCDIS ---
Discharge Instructions DIAGNOSIS Discharge Diagnosis osteoarthtis DVT CONDITION [id number] Patient Condition: [id number] Fair HOME CARE INSTRUCTIONS: [id number] Diet Instructions: Evxgg6h Low Fat /Cholesterol Ruvtn4Sg Special Diet: Yeknl4s regular ACTIVITY: [id number] Activity Restrictions: [id number] Slowly Increase Activity Rest between Activity Avoid heavy lifting FOLLOW UP/APPOINTMENTS Follow-up Plan F/U PCP in 1-2 weeks keep arceo Urinary retention f/u ortho in1-2 weeks DADA SNOW MD Nov 13, 2018 14:33
[2018-11-13 14:37] VITALS: BP 104/61; PULSE 66; RESP 20
--- NOTE | 2018-11-13 18:26 | NUR ---
Pt was accepted [facility] possible discharge tomorrow, continues oral antibiotic for ecoli urine no adverse side effects fluids encouraged, routine wound tx left leg venous ulcers. Assisted ADLS with use single cane safety measures provided, arceo catheter intact no hematuria. No sob , no acute distress and VS within range.
[2018-11-13 20:12] VITALS: BP 106/58; PULSE 73; RESP 18
[2018-11-13] MEDS: APIXABAN 5 MG TABLET PO SCH (21:09)
[2018-11-14 02:00] VITALS: BP 115/63; PULSE 66; RESP 18
[2018-11-14] MEDS: PANTOPRAZOLE (EC) 40 MG TAB PO SCH (05:15)
--- NOTE | 2018-11-14 05:50 | NUR ---
No acute changes during shift. Pt safe and free from injury. Pt A&Ox4 and able to make needs known. All needs anticipated and attended to. Pt slept through the night. Pt denies any pain. No signs of discomfort or distress. No SOB. Pt currently sleeping comfortably in bed. Bed alarm on, call light within reach. Will continue to monitor.
[2018-11-14] MEDS: APIXABAN 5 MG TABLET PO SCH (08:24)
[2018-11-14] MEDS: VORICONAZOLE 200 MG TAB PO SCH (08:24)
[2018-11-14] MEDS: MUPIROCIN 2% 22 GM OINT TOP SCH (08:25)
[2018-11-14 08:46] VITALS: BP 123/73; PULSE 61; RESP 18
[2018-11-14] MEDS ORDERED: TAMSULOSIN (SR) 0.4 MG CAP PO SCH (09:00)
--- NOTE | 2018-11-14 11:21 | NUR ---
RN Notes: DR. Samayoa medically cleared pt for discharge [facility] resolution [facility] coordinated to [facility] and accepted pt also arranged transportation said will pickle solution maker pt around 1500. Called [facility] health center spoke to Breanna, RN gave report and said pt will be going to room 30B. Pt aware regarding transfer order, remains alert and oriented, no acute distress noted, afebrile. Will change Mcdremott prior transfer per order. Addendum: 11/14/18 at 1500 by AUTUMN RICARDO RN Mcdermott Catheter changed as ordered tolerated well with 50ml urine output, no bladder distention noted, no hematuria noted, denies pain/discomfort. waiting for ambulance to transfer pt to [facility]. Addendum: 11/14/18 at 1539 by AUTUMN RICARDO RN ambulance came to pickle solution maker pt, IV line removed no active bleeding noted covered with dry dressing, breathing even and unlabored, denies pain/discomfort, no any acute changes noted.V/S WNL. Arellano crew picked up pt to be transported at [facility], left the unit in stable condition, belonging and cane was with the pt upon discharge.
--- NOTE | 2018-11-14 14:43 | CONS ---
Date/Time of Note Date/Time of Note DATE: 11/14/18 TIME: 14:42 Assessment/Plan Assessment/Plan Hospital Course Alert feels good denies pain, no fevers overnight Microbiology: Repeat urine culture growing yeast, not Lovely albicans Allergy: Penicillin Abx: Vfend PHYSICAL EXAMINATION: GENERAL: This is a chronically ill-appearing, wasted elderly man who is awake, in no distress. HEENT: Head is atraumatic, normocephalic. Sclerae are anicteric. Buccal mucosa is dry. NECK: Supple. CHEST: Rise symmetrical. Breath sounds diminished to bases. HEART: S1, S2. ABDOMEN: Soft. Bowel tones are present. EXTREMITIES: Bilateral lower extremities edema erythema and chronic ulcerations on left lower extremity ASSESSMENT: 1. Systemic inflammatory response syndrome 2. Bilateral lower lower extremities chronic cellulitis with vascular ulcers. 3. Status post recurrent UTI 4. Urinary retention 5. History of methicillin-resistant Staphylococcus aureus nares colonization. 6. Acute on chronic kidney disease. 7. History of polysubstance abuse. PLAN: Remains stable, continue present care pending discharge to longterm facility Result Diagram: 11/12/18 0536 11/12/18 0536 Consultation Date/Type/Reason Admit Date/Time Nov 06, 2018 at 10:22 Initial Consult Date Type of Consult ID Exam/Review of Systems Vital Signs Vitals Vital Signs Date Temp Pulse Resp B/P (MAP) Pulse Ox O2 O2 Flow FiO2 Time Delivery Rate 11/14/18 98.3 61 18 123/73 97 Room Air 08:46 (90) Intake and Output 11/13/18 11/13/18 11/14/18 1515:00 23:00 07:00 IntakeIntake Total 500 ml 1000 ml OutputOutput Total 2200 ml BalanceBalance 500 ml -1200 ml Medications Medications Current Medications IV Flush (NS 3 ml) 3 ml PER PROTOCOL IV ; Start 11/06/18 at 15:30 Ondansetron HCl (Zofran Inj) 4 mg Q6H PRN IV NAUSEA AND/OR VOMITING; Start 11/06/18 at 15:30 Acetaminophen (Tylenol Tab) 650 mg Q6H PRN PO PAIN LEVEL 1-3 OR FEVER Last administered on 11/12/18at 11:25; Admin Dose 650 MG; Start 11/06/18 at 15:30 Magnesium Hydroxide (Milk Of Mag) 30 ml DAILY PRN PO CONSTIPATION; Start 11/06 at 15:30 Mupirocin (Bactroban) 1 applic BID TOP Last administered on 11/14/18at 08:25; Admin Dose 1 APPLIC; Start 11/06/18 at 21:00 Pantoprazole (Protonix Tab) 40 mg DAILY@06 PO Last administered on 11/14/18at 05:15; Admin Dose 40 MG; Start 11/08/18 at 06:00 Voriconazole (Vfend) 200 mg BID PO Last administered on 11/14/18at 08:24; Admin Dose 200 MG; Start 11/10/18 at 12:00 Tamsulosin HCl (Flomax) 0.4 mg DAILY PO Last administered on 11/14/18 08:24; Admin Dose 0.4 MG; Start 11/14/18 at 09:00 Apixaban (Eliquis) 5 mg BID PO Last administered on 11/14/18 08:24; Admin Dose 5 MG; Start 11/13/18 at 21:00 PRINCESS EDMONDSON NP Nov 14, 2018 14:43
[2018-11-14 15:00] VITALS: BP 82/97; PULSE 75; RESP 18
== END 2018-11-14 15:32 | DRG 872 ==
LOC: E/R 08:43 → UNDOADMIN 10:22 → 2NE 10:22 → PP2 10:22
PROVIDERS: ADMIT Internal Medicine; ATTEND Internal Medicine
DX: A41.9 Sepsis, unspecified organism (principal); L03.116 Cellulitis of left lower limb; L03.115 Cellulitis of right lower limb; L97.919 Non-pressure chronic ulcer of unspecified part of right lower leg with unspecified severity; L97.929 Non-pressure chronic ulcer of unspecified part of left lower leg with unspecified severity; N39.0 Urinary tract infection, site not specified; N17.9 Acute kidney failure, unspecified; I87.2 Venous insufficiency (chronic) (peripheral); M25.462 Effusion, left knee; M25.461 Effusion, right knee; I12.9 Hypertensive chronic kidney disease with stage 1 through stage 4 chronic kidney disease, or unspecified chronic kidney disease; R33.9 Retention of urine, unspecified; N18.9 Chronic kidney disease, unspecified; I25.10 Atherosclerotic heart disease of native coronary artery without angina pectoris; F17.200 Nicotine dependence, unspecified, uncomplicated; Z59.0 Homelessness; F19.10 Other psychoactive substance abuse, uncomplicated; B18.2 Chronic viral hepatitis C; F15.10 Other stimulant abuse, uncomplicated; M17.0 Bilateral primary osteoarthritis of knee; E87.5 Hyperkalemia; Z88.0 Allergy status to penicillin; Z86.718 Personal history of other venous thrombosis and embolism; Z87.440 Personal history of urinary (tract) infections
CPT/HCPCS: 36415; 71045; 73562; 80048; 80307; 81001; 83735; 84100; 85025; 87040; 87081; 87086; 97116; 97161; C9113; J0702; J1335; J1650; J1885; J1956; J7030

== ENCOUNTER 2019-04-12 12:39 | Inpatient (IN) | payer MEDICARE, MEDICAID ==
[~2019-04-12] VITALS: Ht 167.6 cm; Wt 65.3 kg
[~2019-04-12 12:39] MED LIST changes: -BISA5TAB6 PO; -CIPR500T4 PO; -DOXY100T2 PO; -DOXY100T20 PO; -IBUP-1542 PO
[2019-04-12] MEDS ORDERED: ACETAMINOPHEN 500 MG TAB PO STA (14:04)
[2019-04-12] MEDS ORDERED: SOD CHLORIDE 0.9% 1,000 ML IV ONE ×2 (17:30→18:00)
--- NOTE | 2019-04-12 17:45 | ERD ---
ER Documentation Chief Complaint Chief Complaint BILATERAL SHOULDER PAIN X 4 DAYS; HPI 68-year-old male presents for bilateral shoulder pain x4 days. Patient is a poor historian. States that he was at a motel was dropped off by a taxi due to the shoulder pain. He states that he has 6 out of 10 pain on both sides. The pain is nonradiating, described as sharp. The pain is noted to be constant. He states that movement makes pain worse. Denies any chest pain or shortness of breath. Denies fevers or chills. Denies abdominal pain, nausea, vomiting. Denies any significant past medical history. He does have an allergy to penicillin. Patient states that he has a history of heavy alcohol use and tobacco use however quit couple years ago. He also has history of marijuana, meth, heroin use which he also quit 2 years ago. No other modifying factors noted, no treatments tried at home. ROS All systems reviewed and are negative except as per history of present illness. Medications Home Meds Active Scripts Tamsulosin Hcl* (Flomax*) 0.4 Mg Cap.er.24h, 0.4 MG PO DAILY, #30 CAP Prov:FRANCA JEAN MD 10/04/18 Metoprolol Tartrate* (Lopressor*) 25 Mg Tab, 25 MG PO BID for 28 Days, #60 TAB Prov:JOSE ANTONIO JESUS MD 11/30/16 Allergies Allergies: Coded Allergies: Penicillins (Verified Allergy, Severe, HIVES, 11/08/18) PER PT 11/08/18 (VIA RN) PMhx/Soc History of Surgery: No Anesthesia Reaction: No Hx Neurological Disorder: No Hx Respiratory Disorders: No Hx Cardiac Disorders: No Hx Psychiatric Problems: No Hx Miscellaneous Medical Probl: Yes (urinary retention, anemia, shingles in R, buttock, hep C, smoker, methamphe) Hx Alcohol Use: No Hx Substance Use: No Hx Tobacco Use: Yes Smoking Status: Unknown if ever smoked Physical Exam Vitals Vital Signs Date Temp Pulse Resp B/P (MAP) Pulse Ox O2 O2 Flow FiO2 Time Delivery Rate 04/12/19 79 16 121/108 100 Room Air 17:25 (112) 04/12/19 98.1 78 18 128/71 99 12:43 (90) Physical Exam Const: No acute distress, appears disheveled Head: Atraumatic Eyes: Normal Conjunctiva ENT: Normal External Ears, Nose and Mouth. Neck: Full range of motion. No meningismus. Resp: Clear to auscultation bilaterally Cardio: Regular rate and rhythm, no murmurs, bilateral radial pulses intact Abd: Soft, non tender, non distended. Normal bowel sounds Skin: Bilateral lower extremity discoloration noted Back: No midline or flank tenderness Ext: Tenderness palpation over the bilateral shoulder area diffusely, patient has decreased range of motion on both sides Neur: Awake and alert, bilateral upper and lower tremors sensation intact Psych: Normal Mood and Affect Result Diagram: 04/12/19 1552 04/12/19 1552 Results 24 hrs Laboratory Tests Test 04/12/19 15:52 04/12/19 17:47 White Blood Count 17.4 10^3/ul Red Blood Count 4.22 10^6/ul Hemoglobin 11.6 g/dl Hematocrit 36.5 % Mean Corpuscular Volume 86.5 fl Mean Corpuscular Hemoglobin 27.5 pg Mean Corpuscular Hemoglobin Concent 31.8 g/dl Red Cell Distribution Width 16.9 % Platelet Count 284 10^3/UL Mean Platelet Volume 9.9 fl Immature Granulocytes % 0.700 % Neutrophils % 88.4 % Lymphocytes % 4.0 % Monocytes % 6.7 % Eosinophils % 0.0 % Basophils % 0.2 % Nucleated Red Blood Cells % 0.0 /100WBC Immature Granulocytes # 0.120 10^3/ul Neutrophils # 15.4 10^3/ul Lymphocytes # 0.7 10^3/ul Monocytes # 1.2 10^3/ul Eosinophils # 0.0 10^3/ul Basophils # 0.0 10^3/ul Nucleated Red Blood Cells # 0.0 10^3/ul Sodium Level 136 mmol/L Potassium Level 5.3 mmol/L Chloride Level 109 mmol/L Carbon Dioxide Level 8 mmol/L Anion Gap 19 Blood Urea Nitrogen 116 mg/dl Creatinine 7.14 mg/dl Est Glomerular Filtrat Rate mL/min 8 mL/min Glucose Level 110 mg/dl Calcium Level 9.4 mg/dl Total Bilirubin 0.3 mg/dl Direct Bilirubin 0.00 mg/dl Indirect Bilirubin 0.3 mg/dl Aspartate Amino Transf (AST/SGOT) 14 IU/L Alanine Aminotransferase (ALT/SGPT) < 6 IU/L Alkaline Phosphatase 125 IU/L Total Protein 10.4 g/dl Albumin 4.4 g/dl Globulin 6.00 g/dl Albumin/Globulin Ratio 0.73 Urine Color YELLOW Urine Clarity CLOUDY Urine pH 6.0 Urine Specific [place] 1.010 Urine Ketones NEGATIVE mg/dL Urine Nitrite NEGATIVE mg/dL Urine Bilirubin NEGATIVE mg/dL Urine Urobilinogen NEGATIVE mg/dL Urine Leukocyte Esterase 3+ Jelly/ul Urine Microscopic RBC 8 /HPF Urine Microscopic WBC > 182 /HPF Urine Bacteria FEW /HPF Urine Hemoglobin 1+ mg/dL Urine Glucose NEGATIVE mg/dL Urine Total Protein 2+ mg/dl Current Medications Medications Dose Sig/Guillermo Start Time Status Last (Trade) Ordered Route PRN Stop Time Admin Dose Reason Admin 1,000 mg ONCE STAT 04/12/19 DC 04/12/19 Acetaminophen PO 14:04 14:40 (Tylenol 04/12/19 14:06 Tab) Sodium 1,000 ml @ Q1H ONCE 04/12/19 DC 04/12/19 Chloride 1,000 mls/hr IV 17:30 17:30 04/12/19 18:29 Sodium 1,000 ml @ Q1H ONCE 04/12/19 DC 04/12/19 Chloride 1,000 mls/hr IV 18:00 18:53 04/12/19 18:59 Ertapenem 1 100 ml @ ONCE ONCE 04/12/19 DC 04/12/19 gm/ Sodium 200 mls/hr IVPB 19:00 18:54 Chloride 04/12/19 19:29 Ondansetron 4 mg BRIDGE ORDER 04/12/19 HCl (Zofran PRN IV 19:30 Inj) NAUSEA/VOMITI 04/13/19 19:29 NG 650 mg ER BRIDGE 04/12/19 Acetaminophen PRN PO 19:30 (Tylenol .MILD PAIN 04/13/19 19:29 Tab) 1-3 OR TEMP IV Flush 3 ml PER 04/12/19 (NS 3 ml) PROTOCOL IV 19:30 Ondansetron 4 mg Q6H PRN 04/12/19 HCl (Zofran IV 19:30 Inj) NAUSEA/VOMITI NG 650 mg Q6H PRN 04/12/19 Acetaminophen PO .PAIN 1-3 19:30 (Tylenol OR TEMP Tab) 1 tab Q6H PRN 04/12/19 Acetaminophen PO .MOD PAIN 19:30 / 4-6 Hydrocodone Bitart ([place] (5/325)) Morphine 2 mg Q4H PRN 04/12/19 Sulfate IV .SEVERE 19:30 (morphine) PAIN 7-10 Docusate 100 mg Q12H PRN 04/12/19 Sodium PO 19:30 (Colace) .CONSTIPATION Magnesium 30 ml DAILY PRN 04/12/19 Hydroxide PO 19:30 (Milk Of Mag) .CONSTIPATION Lorazepam 0.5 mg Q6H PRN 04/12/19 (Ativan) IV ANXIETY 19:30 Sodium 1,000 ml @ Q10H IV 04/12/19 Chloride 100 mls/hr 19:19 Albuterol/ 3 ml Q4H RESP 04/12/19 Ipratropium THERAPY PRN 19:30 (Duoneb) HHN SHORTNESS OF BREATH Hydralazine 10 mg Q6H PRN 04/12/19 HCl IV ELEVATED 19:30 (Apresoline) BLOOD PRESSURE 1 tab Q5M PRN 04/12/19 Nitroglycerin SL ANGINA 19:30 (Nitroglyceri n (Sl Tab) 0.4 Mg) Metoprolol 25 mg BID PO 04/12/19 Tartrate 21:00 (Lopressor) Tamsulosin 0.4 mg DAILY@2100 04/13/19 HCl PO 21:00 (Flomax) Procedures/MDM Medical Decision Making: Differential diagnosis includes but not limited to fracture, dislocation, muscle strain, ligamentous sprain, septic joint, osteomyelitis, gout. There was tenderness over the bilateral shoulders diffusing with limit ROM of the shoulders Patient was neurovascularly intact Patient denies fever, no recent infection, low suspicion for septic joint or osteomyelitis. ED course: Patient was given Tylenol. Imaging: X-ray bilateral shoulder 3V Interpreted by me: Bones: No fracture Joints: No dislocation Foreign body: None There was severe arthritic changes noted of the bilateral glenohumeral joints. Given the patient is a poor historian and denies significant past medical history review of records was done. Records showed the patient was admitted here back in October 2018 for dehydration, renal failure, UTI, urinary obstruction and patient has a prolong hospitalization CBC showed WBC 17.4, hemoglobin 11.6, potassium mildly elevated at 5.3, patient has had metabolic acidosis with a carbon dioxide of 8 There is also acute renal failure with BUN 116 and creatinine 7.14 Records shows that the creatinine on discharge from the hospital back in October 2018 was 1.37 Patient's glucose was 110, therefore low suspicion for DKA. UA showed 2+ leukocytes with a high amount of WBCs consistent with a urinary tract infection Urine culture was ordered Blood cultures also ordered Mcdermott catheter was placed IV fluids and IV antibiotics started Review of records shows that patient urine infection was resistant to Levaquin and Cipro. Patient also has a penicillin allergy. While inpatient patient was given ertapenem. Given the patient's dehydration with metabolic acidosis, acute kidney injury, p atient will be admitted for further management. manager call hospitalist Dr. Doyle was contact and agreed to admit patient for futher care. Disclaimer: Inadvertent spelling and grammatical errors are likely due to EHR/dictation software use and do not reflect on the overall quality of patient care. Also, please note that the electronic time recorded on this note does not necessarily reflect the actual time of the patient encounter. Departure Diagnosis: Primary Impression: Acute kidney failure Additional Impressions: Dehydration Metabolic acidosis UTI (urinary tract infection) Osteoarthritis of both shoulders Condition: Serious GABRIELA FLOWER DO April 12, 2019 17:45
[2019-04-12] MEDS ORDERED: ERTAPENEM SODIUM 1 GM in SOD CHLORIDE 0.9% 100 ML IVPB ONE (19:00)
[2019-04-12] MEDS ORDERED: SOD CHLORIDE 0.9% 1,000 ML IV SCH (19:19)
[2019-04-12] MEDS ORDERED: hydrALAzine 20 MG INJ IV PRN (19:30)
[2019-04-12] MEDS ORDERED: ONDANSETRON 4 MG INJ IV PRN ×2 (19:30)
[2019-04-12] MEDS ORDERED: HYDROCODONE/APAP (5/325) TAB PO PRN (19:30)
[2019-04-12] MEDS ORDERED: morphine 2 MG INJ IV PRN (19:30)
[2019-04-12] MEDS ORDERED: ALBUTEROL/IPRATROPIUM (NEB) 3 ML AMP HHN PRN (19:30)
[2019-04-12] MEDS ORDERED: LORAZEPAM 2 MG INJ IV PRN (19:30)
[2019-04-12] MEDS ORDERED: NACL 0.9% 3 ML SYG IV SCH (19:30)
[2019-04-12] MEDS ORDERED: ACETAMINOPHEN 325 MG TAB PO PRN ×2 (19:30)
[2019-04-12] MEDS ORDERED: DOCUSATE SODIUM 100 MG CAP PO PRN (19:30)
[2019-04-12] MEDS ORDERED: NITROGLYCERIN (SL) 0.4 MG TAB SL PRN (19:30)
[2019-04-12] MEDS ORDERED: MAGNESIUM HYDROXIDE 30ML CUP PO PRN (19:30)
[2019-04-12 21:30] VITALS: BP 135/65; PULSE 73; RESP 19
[2019-04-12 21:42] VITALS: BMI 23.2
[2019-04-12 21:43] VITALS: Ht 167.6 cm; Wt 65.3 kg
--- NOTE | 2019-04-12 22:36 | HP ---
Date/Time of Note Date/Time of Note DATE: 04/12/19 TIME: 22:36 Assessment/Plan VTE Prophylaxis Pharmacological prophylaxis: other Lines/Catheters IV Catheter Type (from Nrsg): Mid Line Central line still needed: Yes Assessment/Plan Assessment/Plan 1. Acute on CKD -Patient presented with a bicarb of 8, K of 5.3 -Renal ultrasound shows moderate to severe hydronephrosis -Continue Mcdermott -IV fluid -Bicarb -CT abdomen/pelvis -Nephrology consult 2. Severe bilateral hydronephrosis -Mcdermott in place -will start Flomax -Obtain CT abdomen/pelvis -Nephrology and urology consult 3. UTI -IV antibiotic, IV fluid, follow-up culture results 4. Leukocytosis: See #3 5. Severe osteoarthritis of bilateral glenohumeral joints. -Patient also with a history of severe bilateral knee osteoarthritis, status post steroid injection [address] Gonzalez -Consult Dr. Gonzalez, Ortho -Pain management 6. Hypertension: Continue metoprolol 7. Severe metabolic acidosis: See #1 Result Diagram: 04/12/19 1552 04/12/19 1552 Results 24hrs Laboratory Tests Test 04/12/19 15:52 04/12/19 17:47 White Blood Count 17.4 #H Red Blood Count 4.22 #L Hemoglobin 11.6 #L Hematocrit 36.5 #L Mean Corpuscular Volume 86.5 Mean Corpuscular Hemoglobin 27.5 L Mean Corpuscular Hemoglobin Concent 31.8 L Red Cell Distribution Width 16.9 H Platelet Count 284 Mean Platelet Volume 9.9 Immature Granulocytes % 0.700 H Neutrophils % 88.4 H Lymphocytes % 4.0 L Monocytes % 6.7 Eosinophils % 0.0 Basophils % 0.2 Nucleated Red Blood Cells % 0.0 Immature Granulocytes # 0.120 H Neutrophils # 15.4 H Lymphocytes # 0.7 L Monocytes # 1.2 H Eosinophils # 0.0 Basophils # 0.0 Nucleated Red Blood Cells # 0.0 Sodium Level 136 Potassium Level 5.3 H Chloride Level 109 Carbon Dioxide Level 8 *L Anion Gap 19 H Blood Urea Nitrogen 116 H Creatinine 7.14 H Est Glomerular Filtrat Rate mL/min 8 L Glucose Level 110 Calcium Level 9.4 Total Bilirubin 0.3 Direct Bilirubin 0.00 Indirect Bilirubin 0.3 Aspartate Amino Transf (AST/SGOT) 14 L Alanine Aminotransferase (ALT/SGPT) < 6 L Alkaline Phosphatase 125 H Total Protein 10.4 H Albumin 4.4 Globulin 6.00 H Albumin/Globulin Ratio 0.73 Free Thyroxine 1.37 Urine Color YELLOW Urine Clarity CLOUDY A Urine pH 6.0 Urine Specific [place] 1.010 Urine Ketones NEGATIVE Urine Nitrite NEGATIVE Urine Bilirubin NEGATIVE Urine Urobilinogen NEGATIVE Urine Leukocyte Esterase 3+ H Urine Microscopic RBC 8 H Urine Microscopic WBC > 182 H Urine Bacteria FEW A Urine Hemoglobin 1+ H Urine Glucose NEGATIVE Urine Total Protein 2+ H HPI/ROS Admit Date/Time Admit Date/Time April 12, 2019 at 19:05 Hx of Present Illness This is a 5-year-old male with a history of CKD, urinary retention, hep C, methamphetamine use, right buttock shingles, right lower extremity cellulitis, severe osteoarthritis of bilateral knee who presented to the ER complaining of bilateral shoulder pain. X-ray in the ER shows Severe osteoarthritic changes of the bilateral glenohumeral joints. His lab is actually what is dramatic. He presented with a creatinine of 7, up from 1.37 in October of last year. Bicarb 8, potassium 5.3, WBC 17,000. UA consistent with UTI. 6 months ago patient was treated for urosepsis including funguria from [facility]. Renal ultrasound today showed moderate to severe bilateral hydronephrosis. A Mcdermott was placed and patient was started on IV fluid. Patient has been very difficult to tell if this was nursing. He was only able to tell me what he came here for which is for bilateral shoulder pain. We discussed about his severe kidney condition. Zain jj is currently pending PICC line insertion he consents. PMH/Family/Social Past Medical History Medical History: other (see hpi) Medications Current Medications Ondansetron HCl (Zofran Inj) 4 mg BRIDGE ORDER PRN IV NAUSEA/VOMITING; Start 04/12/19 at 19:30; Stop 04/13/19 at 19:29 Acetaminophen (Tylenol Tab) 650 mg ER BRIDGE PRN PO .MILD PAIN 1-3 OR TEMP; Start 04/12/19 at 19:30; Stop 04/13/19 at 19:29 IV Flush (NS 3 ml) 3 ml PER PROTOCOL IV ; Start 04/12/19 at 19:30 Ondansetron HCl (Zofran Inj) 4 mg Q6H PRN IV NAUSEA/VOMITING; Start 04/12/19 at 19:30 Acetaminophen (Tylenol Tab) 650 mg Q6H PRN PO .PAIN 1-3 OR TEMP; Start 04/12/19 at 19:30 Acetaminophen/ Hydrocodone Bitart ([place] (5/325)) 1 tab Q6H PRN PO .MOD PAIN 4- 6; Start 04/12/19 at 19:30 Morphine Sulfate (morphine) 2 mg Q4H PRN IV .SEVERE PAIN 7-10; Start 04/12/19 at 19:30 Docusate Sodium (Colace) 100 mg Q12H PRN PO .CONSTIPATION; Start 04/12/19 at 19:30 Magnesium Hydroxide (Milk Of Mag) 30 ml DAILY PRN PO .CONSTIPATION; Start 04/12/19 at 19:30 Lorazepam (Ativan) 0.5 mg Q6H PRN IV ANXIETY; Start 04/12/19 at 19:30 Sodium Chloride 1,000 ml @ 100 mls/hr Q10H IV Last administered on 04/12/19at 21:57; Admin Dose 100 MLS/HR; Start 04/12/19 at 19:19 Albuterol/ Ipratropium (Duoneb) 3 ml Q4H RESP THERAPY PRN HHN SHORTNESS OF BREATH; Start 04/12/19 at 19:30 Hydralazine HCl (Apresoline) 10 mg Q6H PRN IV ELEVATED BLOOD PRESSURE; Start 04/12/19 at 19:30 Nitroglycerin (Nitroglycerin (Sl Tab) 0.4 Mg) 1 tab Q5M PRN SL ANGINA; Start 04/12/19 at 19:30 Metoprolol Tartrate (Lopressor) 25 mg BID PO ; Start 04/12/19 at 21:00 Tamsulosin HCl (Flomax) 0.4 mg DAILY@2100 PO ; Start 04/13/19 at 21:00 Coded Allergies: Penicillins (Verified Allergy, Severe, HIVES, 11/08/18) PER PT 11/08/18 (VIA RN) Past Surgical History Past Surgical Hx: no surgical history, other Family History Significant Family History: no pertinent family hx, other Social History Alcohol Use: other Smoking Status: Current every day smoker Drug Use: other Exam/Review of Systems Vital Signs Vitals Vital Signs Date Temp Pulse Resp B/P (MAP) Pulse Ox O2 O2 Flow FiO2 Time Delivery Rate 04/12/19 98.2 73 19 135/65 100 21:30 (88) 04/12/19 Room Air 21:11 Exam Constitutional: other (lying supine on bed. somehow agitated when answering questions) Musculoskeletal: other Extremities: other (venous stasis change on lower extremities) Skin: other (small swatsika tatoo on knee. ) LISANDRA MCCOY MD April 12, 2019 22:36
[2019-04-12] MEDS: METOPROLOL 25 MG TAB PO SCH (22:37)
[2019-04-13] VITALS (10 sets, daily range): BP systolic 72–162; BP diastolic 41–88; PULSE 63–99; RESP 18–20
[2019-04-13] MEDS ORDERED: SOD CHLORIDE 0.9% 500 ML IV ONE (04:30)
[2019-04-13] MEDS ORDERED: NA BICARBONATE 8.4% 50 ML SYG IV ONE (05:44)
[2019-04-13] MEDS ORDERED: LIDOCAINE 1% (MPF) 5 ML VIAL SC ONE (06:30)
[2019-04-13] MEDS: METOPROLOL 25 MG TAB PO SCH ×2 (09:00→21:00)
[2019-04-13] MEDS: SODIUM BICARBONATE (IV ADD) 150 MEQ in DEXTROSE 5% 850 ML IV SCH ×2 (11:48→23:50)
--- NOTE | 2019-04-13 12:42 | CONS ---
DATE OF ADMISSION: 04/12/2019 DATE OF CONSULTATION: TYPE OF CONSULTATION: Nephrology. REASON FOR CONSULTATION: Acute kidney injury. PHYSICIAN REQUESTING CONSULT: Tommie Larry MD HISTORY OF PRESENT ILLNESS: This is a 68-year-old male with a past medical history of chronic kidney disease, baseline creatinine around 1.5 mg/dL, history of methamphetamine use, history of hepatitis C, history of urinary retention, history of shingles, cellulitis, osteoarthritis, who presents to the emergency room with bilateral shoulder pain. The patient in the emergency room had x-ray which show ed osteoarthritic changes in the glenohumeral joint. The patient also had laboratory data drawn, whi ch showed a creatinine of 7, bicarb of 8, potassium 5.3. In the emergency room, an ultrasound was ob tained which showed cerebral bilateral hydronephrosis. A Mcdermott catheter was placed with excellent ur inary output. The patient was subsequently admitted to med/surg for evaluation. In terms of patient's renal history, as stated above, the patient has underlying CKD with previous ba seline creatinine around 1.3 mg/dL. The patient denies any recent history of rashes, hemoptysis, hem atemesis or hematochezia. PAST MEDICAL HISTORY: As stated above, history of CKD, history of methamphetamine use, history of ar thritis, history of cellulitis. PAST SURGICAL HISTORY: None. FAMILY HISTORY: No family history of kidney disease. SOCIAL HISTORY: Positive alcohol and drug use. MEDICATIONS: Have been reviewed. REVIEW OF SYSTEMS: A 14-point review of systems was conducted. Pertinent positives stated in HPI, o therwise negative. PHYSICAL EXAMINATION: VITAL SIGNS: Blood pressure is 80/48, respiratory rate 20, pulse 65, temperature 98.4. HEENT: Head is normocephalic. NECK: Supple. HEART: Regular rate. LUNGS: Show diminished breath sounds at the base. ABDOMEN: Soft, nontender to palpation without rebound or guarding. EXTREMITIES: Negative for clubbing, cyanosis. No edema. DERMATOLOGIC: No rashes. MUSCULOSKELETAL: No joint effusion. NEUROLOGIC: No focal deficits. Urinalysis was reviewed. LABORATORY DATA: Reviewed. ASSESSMENT AND PLAN: This is a 68-year-old male who presents with: 1. Nonoliguric acute kidney injury on top of chronic kidney disease with previous baseline creatinin e around 1.5 mg/dL. Etiology of acute kidney injury is secondary to obstructive uropathy. The patie nt's renal ultrasound showed evidence of severe bilateral hydronephrosis. The patient is status post Mcdermott catheter placement with excellent urinary output. At this point, we will continue current jason atment plan. Continue IV hydration. Monitor renal function closely. Consider urology evaluation. 2. Bilateral hydronephrosis. Etiology may be secondary to urinary retention. The patient is status post Mcdermott catheter with excellent urinary output. Plan is to follow up CT scan. Consider urologic evaluation. 3. Metabolic acidosis. Etiology is secondary to acute kidney injury. We will start the patient on bicarbonate drip. 4. Mineral bone disorder. The patient is hyperphosphatemic secondary to acute kidney injury. Ruthie nue to monitor. We will start patient on phosphate binders. 5. Sepsis secondary to urinary tract infection. Continue current antibiotic regimen. 6. Severe osteoarthritis. Continue medical management. 7. Hypertension. The patient is currently hypotensive. Continue to monitor. Thank you, Dr. Larry, this interesting consult. It will be a pleasure to follow patient with you patrice nunes the hospital course. Dictated By: LAUREN WAGGONER DO NR/NTS Conf#: [id number] DID#: [id number] CC: LISANDRA MCCOY MD; SILVER ABBOTT MD;*End*
--- NOTE | 2019-04-13 17:20 | CONS ---
Assessment/Plan Assessment/Plan Hospital Course (Demo Recall) 68-year-old male presented to the emergency room complaining of bilateral shoulder pain. The patient is known to have a history of chronic kidney disease, baseline creatinine around 1.5 mg/dL, history of methamphetamine use, history of hepatitis C, history of urinary retention, history of shingles, cellulitis, osteoarthritis. X-ray of his shoulders showed osteoarthritic changes in the glenohumeral joint. The patient also had laboratory data drawn and that showed a creatinine of 7, bicarb of 8, potassium 5.3. Because of that he underwent an ultrasound of the kidneys and that showed severe bilateral hydronephrosis. A Mcdermott catheter was placed with excellent urinary output. A urological consultation was requested. The patient denies any urinary incontinence. He denies any dysuria and he also denies any hematuria. He is homeless and most of the questions were answered by I do not remember and I do not know. The patient had urinary retention and because of that bilateral hydronephrosis. He is prostate appears to be enlarged but I doubt it to be the only reason for his urinary retention. For now we will keep the Mcdermott catheter in and see his renal function improve. Continue the tamsulosin that was started on him and check his PSA. Once his creatinine stabilizes then we could discontinue the Mcdermott catheter and see if he does void and check his postvoid residual. I will follow his urological problem with you. Consultation Date/Type/Reason Admit Date/Time April 12, 2019 at 19:05 Date of Consultation: April 13, 2019 Type of Consult Urology Reason for Consultation Urinary retention Requesting Provider: LISANDRA MCCOY MD Date/Time of Note DATE: 04/13/19 TIME: 17:04 Hx of Present Illness 68-year-old male presented to the emergency room complaining of bilateral shoulder pain. The patient is known to have a history of chronic kidney disease, baseline creatinine around 1.5 mg/dL, history of methamphetamine use, history of hepatitis C, history of urinary retention, history of shingles, cellulitis, osteoarthritis. X-ray of his shoulders showed osteoarthritic changes in the glenohumeral joint. The patient also had laboratory data drawn and that showed a creatinine of 7, bicarb of 8, potassium 5.3. Because of that he underwent an ultrasound of the kidneys and that showed severe bilateral hydronep hrosis. A Mcdermott catheter was placed with excellent urinary output. A urological consultation was requested. The patient denies any urinary incontinence. He denies any dysuria and he also denies any hematuria. He is homeless and most of the questions were answered by I do not remember and I do n ot know. Constitutional: no complaints Eyes: no complaints ENT: no complaints Respiratory: no complaints; No shortness of breath Cardiovascular: No chest pain Gastrointestinal: No nausea, No vomiting Genitourinary: other (Urinary retention on admission); No bleeding, No hematuria Musculoskeletal: other (Bilateral shoulder pain) Skin: other (Skin discoloration of the legs from chronic cellulitis.) Neurologic: no complaints Lymphatic: no complaints Psychological: no complaints Past Medical History Medical History: renal disease, other (Hepatitis C and shingles) Home Meds Active Scripts Tamsulosin Hcl* (Flomax*) 0.4 Mg Cap.er.24h, 0.4 MG PO DAILY, #30 CAP Prov:FRANCA JEAN MD 10/04/18 Metoprolol Tartrate* (Lopressor*) 25 Mg Tab, 25 MG PO BID for 28 Days, #60 TAB Prov:JOSE ANTONIO JESUS MD 11/30/16 Medications Current Medications Ondansetron HCl (Zofran Inj) 4 mg BRIDGE ORDER PRN IV NAUSEA/VOMITING; Start 04/12/19 at 19:30; Stop 04/13/19 at 19:29 Acetaminophen (Tylenol Tab) 650 mg ER BRIDGE PRN PO .MILD PAIN 1-3 OR TEMP; Start 04/12/19 at 19:30; Stop 04/13/19 at 19:29 IV Flush (NS 3 ml) 3 ml PER PROTOCOL IV ; Start 04/12/19 at 19:30 Ondansetron HCl (Zofran Inj) 4 mg Q6H PRN IV NAUSEA/VOMITING; Start 04/12/19 at 19:30 Acetaminophen (Tylenol Tab) 650 mg Q6H PRN PO .PAIN 1-3 OR TEMP; Start 04/12/19 at 19:30 Acetaminophen/ Hydrocodone Bitart ([place] (5/325)) 1 tab Q6H PRN PO .MOD PAIN 4- 6; Start 04/12/19 at 19:30 Morphine Sulfate (morphine) 2 mg Q4H PRN IV .SEVERE PAIN 7-10; Start 04/12/19 at 19:30 Docusate Sodium (Colace) 100 mg Q12H PRN PO .CONSTIPATION; Start 04/12/19 at 19:30 Magnesium Hydroxide (Milk Of Mag) 30 ml DAILY PRN PO .CONSTIPATION; Start 04/12/19 at 19:30 Lorazepam (Ativan) 0.5 mg Q6H PRN IV ANXIETY; Start 04/12/19 at 19:30 Albuterol/ Ipratropium (Duoneb) 3 ml Q4H RESP THERAPY PRN HHN SHORTNESS OF BREATH; Start 04/12/19 at 19:30 Hydralazine HCl (Apresoline) 10 mg Q6H PRN IV ELEVATED BLOOD PRESSURE; Start 04/12/19 at 19:30 Nitroglycerin (Nitroglycerin (Sl Tab) 0.4 Mg) 1 tab Q5M PRN SL ANGINA; Start 04/12/19 at 19:30 Metoprolol Tartrate (Lopressor) 25 mg BID PO Last administered on 04/12/19at 22:37; Admin Dose 25 MG; Start 04/12/19 at 21:00 Tamsulosin HCl (Flomax) 0.4 mg DAILY@2100 PO ; Start 04/13/19 at 21:00 Sodium Bicarbonate 150 meq/Dextrose 1,000 ml @ 75 mls/hr [id number] IV Last administered on 04/13/19at 11:48; Admin Dose 75 MLS/HR; Start 04/13/19 at 10:30 Allergies: Coded Allergies: Penicillins (Verified Allergy, Severe, HIVES, 11/08/18) PER PT 11/08/18 (VIA RN) Past Surgical History Past Surgical Hx: no surgical history Social History Alcohol Use: other (He denies drinking alcohol) Smoking Status: Current every day smoker (1 pack of cigarettes a day.) Drug Use: other (He denies any drug abuse but in his record it is mentioned that he does methamphetamines) Other Social History Homeless, has a daughter Exam/Review of Systems Exam Vitals Vital Signs Date Temp Pulse Resp B/P (MAP) Pulse Ox O2 O2 Flow FiO2 Time Delivery Rate 04/13/19 98.0 72 20 107/62 96 Room Air 15:18 (77) Intake and Output 04/12/19 04/12/1919 1515:00 23:00 07:00 IntakeIntake Total 2100 ml 700 ml OutputOutput Total 1800 ml BalanceBalance 300 ml 700 ml Constitutional: alert, other (Answering most questions by I do not remember and I do not know) Head: normocephalic Eyes: nl conjunctiva ENMT: nl external ears & nose Neck: supple, non-tender Respiratory: normal air movement; No wheezing Cardiovascular: No jugular venous distention (JVD) Gastrointestinal: soft; No surgical scars Genitourinary - Male: nl penis, nl scrotum, other (Has a Mcdermott catheter, rectal exam: Prostate is enlarged and soft) Musculoskeletal: other (Difficulty bending his lower extremities and pain in his shoulders) Extremities: No calf tenderness Neurological: nl mental status Skin: nl turgor Results Result Diagram: 04/13/19 0452 04/13/19 0452 Results 24hrs Laboratory Tests Test 04/12/19 17:47 04/13/19 04:52 04/13/19 12:53 Urine Color YELLOW Urine Clarity CLOUDY A Urine pH 6.0 Urine Specific [place] 1.010 Urine Ketones NEGATIVE Urine Nitrite NEGATIVE Urine Bilirubin NEGATIVE Urine Urobilinogen NEGATIVE Urine Leukocyte Esterase 3+ H Urine Microscopic RBC 8 H Urine Microscopic WBC > 182 H Urine Bacteria FEW A Urine Hemoglobin 1+ H Urine Glucose NEGATIVE Urine Total Protein 2+ H White Blood Count 16.9 H Red Blood Count 3.41 L Hemoglobin 9.5 L Hematocrit 28.9 #L Mean Corpuscular Volume 84.8 Mean Corpuscular Hemoglobin 27.9 L Mean Corpuscular 32.9 Hemoglobin Concent Red Cell Distribution Width 16.5 H Platelet Count 278 Mean Platelet Volume 10.1 Immature Granulocytes % 0.600 H Neutrophils % 85.4 H Lymphocytes % 4.6 L Monocytes % 8.7 Eosinophils % 0.4 Basophils % 0.3 Nucleated Red Blood Cells % 0.0 Immature Granulocytes # 0.100 H Neutrophils # 14.4 H Lymphocytes # 0.8 Monocytes # 1.5 H Eosinophils # 0.1 Basophils # 0.1 Nucleated Red Blood Cells # 0.0 Sodium Level 136 Potassium Level 4.3 Chloride Level 115 H Carbon Dioxide Level 9 *L Anion Gap 12 # Blood Urea Nitrogen 105 H Creatinine 5.56 H Est Glomerular Filtrat 10 L Rate mL/min Glucose Level 108 Hemoglobin A1c 5.5 Calcium Level 8.5 Phosphorus Level 7.2 H Magnesium Level 2.1 Triglycerides Level 86 Cholesterol Level 99 L LDL Cholesterol, Calculated 58 HDL Cholesterol 24 L Cholesterol/HDL Ratio 4.1 Thyroid Stimulating 1.370 Hormone (TSH) Blood Gas Specimen Source Blood arterial Arterial Blood Date Drawn 04/13/2019 2:00:10 PM Arterial Blood pH 7.220 *L (Temp corrected) Arterial Blood pCO2 22.5 L (Temp correct) Arterial Blood pO2 102.0 H (Temp corrected) Arterial Blood HCO3 9.0 *L Arterial Blood Base Excess -17.0 L Arterial Blood 97.1 Oxygen Saturation Hernandez Test ACCEPTAB Arterial Blood Gas Right Radial Puncture Site Arterial 0.3 Blood Carboxyhemoglobin Arterial Blood Methemoglobin 0.4 Blood Gas A-a O2 20.8 Differential Oxyhemoglobin Percent 96.4 Blood Gas Temperature 37.0 Blood Gas Modality ROOM AIR FiO2 21.0 Blood Gas Critical Value TAN GAMEZ Read Back Blood Gas Notified Whom CW Blood Gas Notified Time 04/13/2019 2:11:15 PM Imaging Imaging Renal ultrasound: 1. Moderate to severe bilateral hydronephrosis. 2. Benign right renal cysts. 3. Mcdermott catheter in the bladder. 4. Gallstones in the gallbladder. 5. Otherwise unremarkable renal ultrasound. CT scan of the abdomen and pelvis without IV contrast: Redemonstration of severe bilateral hydronephrosis. No obstructing urinary tract stones are seen. Irregular bladder wall thickening and possible distal ureteral thickening. Evaluation limited without contrast and with partial decompression by Mcdermott catheter. Bladder mass cannot be excluded. Consider further evaluation with urogram or cystoscopy. Correlate with urinalysis to exclude cystitis. Small 2.3 cm hypoattenuating lesion of the right kidney with calcifications may represent a complex cyst or a mass. Evaluation is limited without IV contrast. Consider further evaluation with multiphasic contrast enhanced renal CT or MRI. Cholelithiasis. Paraseptal emphysema. Subsegmental atelectasis of the bilateral lung bases. Small 8 mm nodular opacity in the peripheral right lower lobe. If clinically indicated, consider further evaluation with dedicated CT chest. Medications Medication Current Medications Ondansetron HCl (Zofran Inj) 4 mg BRIDGE ORDER PRN IV NAUSEA/VOMITING; Start 04/12/19 at 19:30; Stop 04/13/19 at 19:29 Acetaminophen (Tylenol Tab) 650 mg ER BRIDGE PRN PO .MILD PAIN 1-3 OR TEMP; Start 04/12/19 at 19:30; Stop 04/13/19 at 19:29 IV Flush (NS 3 ml) 3 ml PER PROTOCOL IV ; Start 04/12/19 at 19:30 Ondansetron HCl (Zofran Inj) 4 mg Q6H PRN IV NAUSEA/VOMITING; Start 04/12/19 at 19:30 Acetaminophen (Tylenol Tab) 650 mg Q6H PRN PO .PAIN 1-3 OR TEMP; Start 04/12/19 at 19:30 Acetaminophen/ Hydrocodone Bitart ([place] (5/325)) 1 tab Q6H PRN PO .MOD PAIN 4- 6; Start 04/12/19 at 19:30 Morphine Sulfate (morphine) 2 mg Q4H PRN IV .SEVERE PAIN 7-10; Start 04/12/19 at 19:30 Docusate Sodium (Colace) 100 mg Q12H PRN PO .CONSTIPATION; Start 04/12/19 at 19:30 Magnesium Hydroxide (Milk Of Mag) 30 ml DAILY PRN PO .CONSTIPATION; Start 04/12/19 at 19:30 Lorazepam (Ativan) 0.5 mg Q6H PRN IV ANXIETY; Start 04/12/19 at 19:30 Albuterol/ Ipratropium (Duoneb) 3 ml Q4H RESP THERAPY PRN HHN SHORTNESS OF BREATH; Start 04/12/19 at 19:30 Hydralazine HCl (Apresoline) 10 mg Q6H PRN IV ELEVATED BLOOD PRESSURE; Start 04/12/19 at 19:30 Nitroglycerin (Nitroglycerin (Sl Tab) 0.4 Mg) 1 tab Q5M PRN SL ANGINA; Start 04/12/19 at 19:30 Metoprolol Tartrate (Lopressor) 25 mg BID PO Last administered on 04/12/19at 22:37; Admin Dose 25 MG; Start 04/12/19 at 21:00 Tamsulosin HCl (Flomax) 0.4 mg DAILY@2100 PO ; Start 04/13/19 at 21:00 Sodium Bicarbonate 150 meq/Dextrose 1,000 ml @ 75 mls/hr [id number] IV Last administered on 04/13/19at 11:48; Admin Dose 75 MLS/HR; Start 04/13/19 at 10:30 MILO COOMBS MD April 13, 2019 17:15
--- NOTE | 2019-04-13 18:28 | PN ---
Date/Time of Note Date/Time of Note DATE: 04/13/19 TIME: 18:19 Assessment/Plan VTE Prophylaxis Risk score (from Ns)>0 risk: 3 SCD applied (from [facility]): Yes Pharmacological prophylaxis: NA/contraindicated Pharm contraindication: renal impairment Assessment/Plan Hospital Course 1. Acute kidney injury on CKD secondary to obstructive uropathy urinary retention -Mcdermott catheter placed with excellent urine output noted -Urology and nephrology consultations appreciated -Renal ultrasound showed moderate to severe hydronephrosis -Continue Mcdermott -Bicarb per renal for metabolic acidosis -CT abdomen/pelvis shows bilateral hydronephrosis, no obstructing urinary stones or irregular bladder wall thickening and possible distal ureteral thickening Re demonstration of severe bilateral hydronephrosis. No obstructing urinary trac t stones are seen, prostate gland not enlarged on CT -Continue Flomax for now 2. Sepsis secondary to UTI secondary to urinary retention -Empiric Rocephin -Mcdermott in place 3. 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 Anemia of chronic disease -Monitor 5. Severe osteoarthritis of bilateral glenohumeral joints. -Patient also with a history of severe bilateral knee osteoarthritis, status post steroid injection [address] Gonzalez -Pain management 6. Hypertension: Continue metoprolol Prophylaxis: SCDs DC planning: Monitor renal function, social work consultation Result Diagram: 04/13/19 0452 04/13/19 0452 Results 24hrs Laboratory Tests Test 04/13/19 04:52 04/13/19 12:53 White Blood Count 16.9 H Red Blood Count 3.41 L Hemoglobin 9.5 L Hematocrit 28.9 #L Mean Corpuscular Volume 84.8 Mean Corpuscular Hemoglobin 27.9 L Mean Corpuscular Hemoglobin Concent 32.9 Red Cell Distribution Width 16.5 H Platelet Count 278 Mean Platelet Volume 10.1 Immature Granulocytes % 0.600 H Neutrophils % 85.4 H Lymphocytes % 4.6 L Monocytes % 8.7 Eosinophils % 0.4 Basophils % 0.3 Nucleated Red Blood Cells % 0.0 Immature Granulocytes # 0.100 H Neutrophils # 14.4 H Lymphocytes # 0.8 Monocytes # 1.5 H Eosinophils # 0.1 Basophils # 0.1 Nucleated Red Blood Cells # 0.0 Sodium Level 136 Potassium Level 4.3 Chloride Level 115 H Carbon Dioxide Level 9 *L Anion Gap 12 # Blood Urea Nitrogen 105 H Creatinine 5.56 H Est Glomerular Filtrat Rate mL/min 10 L Glucose Level 108 Hemoglobin A1c 5.5 Calcium Level 8.5 Phosphorus Level 7.2 H Magnesium Level 2.1 Triglycerides Level 86 Cholesterol Level 99 L LDL Cholesterol, Calculated 58 HDL Cholesterol 24 L Cholesterol/HDL Ratio 4.1 Thyroid Stimulating Hormone (TSH) 1.370 Blood Gas Specimen Source Blood arterial Arterial Blood Date Drawn 04/13/2019 2:00:10 PM Arterial Blood pH (Temp corrected) 7.220 *L Arterial Blood pCO2 (Temp correct) 22.5 L Arterial Blood pO2 (Temp corrected) 102.0 H Arterial Blood HCO3 9.0 *L Arterial Blood Base Excess -17.0 L Arterial Blood Oxygen Saturation 97.1 Hernandez Test ACCEPTAB Arterial Blood Gas Puncture Site Right Radial Arterial Blood Carboxyhemoglobin 0.3 Arterial Blood Methemoglobin 0.4 Blood Gas A-a O2 Differential 20.8 Oxyhemoglobin Percent 96.4 Blood Gas Temperature 37.0 Blood Gas Modality ROOM AIR FiO2 21.0 Blood Gas Critical Value Read Back TAN GAMEZ Blood Gas Notified Whom CW Blood Gas Notified Time 04/13/2019 2:11:15 PM Subjective 24 Hr Interval Summary Constitutional: no complaints Exam/Review of Systems Exam Vitals Vital Signs Date Temp Pulse Resp B/P (MAP) Pulse Ox O2 O2 Flow FiO2 Time Delivery Rate 04/13/19 69 17:04 04/13/19 98.0 20 107/62 96 Room Air 15:18 (77) Intake and Output 04/12/19 04/12/19 04/13/19 1515:00 23:00 07:00 IntakeIntake Total 2100 ml 700 ml OutputOutput Total 1800 ml BalanceBalance 300 ml 700 ml Constitutional: alert, oriented Respiratory: clear to auscultation Cardiovascular: regular rate and rhythm Gastrointestinal: soft; No distended Musculoskeletal: nl extremities to inspection Results Results 24hrs Laboratory Tests Test 04/13/19 04:52 04/13/19 12:53 White Blood Count 16.9 H Red Blood Count 3.41 L Hemoglobin 9.5 L Hematocrit 28.9 #L Mean Corpuscular Volume 84.8 Mean Corpuscular Hemoglobin 27.9 L Mean Corpuscular Hemoglobin Concent 32.9 Red Cell Distribution Width 16.5 H Platelet Count 278 Mean Platelet Volume 10.1 Immature Granulocytes % 0.600 H Neutrophils % 85.4 H Lymphocytes % 4.6 L Monocytes % 8.7 Eosinophils % 0.4 Basophils % 0.3 Nucleated Red Blood Cells % 0.0 Immature Granulocytes # 0.100 H Neutrophils # 14.4 H Lymphocytes # 0.8 Monocytes # 1.5 H Eosinophils # 0.1 Basophils # 0.1 Nucleated Red Blood Cells # 0.0 Sodium Level 136 Potassium Level 4.3 Chloride Level 115 H Carbon Dioxide Level 9 *L Anion Gap 12 # Blood Urea Nitrogen 105 H Creatinine 5.56 H Est Glomerular Filtrat Rate mL/min 10 L Glucose Level 108 Hemoglobin A1c 5.5 Calcium Level 8.5 Phosphorus Level 7.2 H Magnesium Level 2.1 Triglycerides Level 86 Cholesterol Level 99 L LDL Cholesterol, Calculated 58 HDL Cholesterol 24 L Cholesterol/HDL Ratio 4.1 Thyroid Stimulating Hormone (TSH) 1.370 Blood Gas Specimen Source Blood arterial Arterial Blood Date Drawn 04/13/2019 2:00:10 PM Arterial Blood pH (Temp corrected) 7.220 *L Arterial Blood pCO2 (Temp correct) 22.5 L Arterial Blood pO2 (Temp corrected) 102.0 H Arterial Blood HCO3 9.0 *L Arterial Blood Base Excess -17.0 L Arterial Blood Oxygen Saturation 97.1 Hernandez Test ACCEPTAB Arterial Blood Gas Puncture Site Right Radial Arterial Blood Carboxyhemoglobin 0.3 Arterial Blood Methemoglobin 0.4 Blood Gas A-a O2 Differential 20.8 Oxyhemoglobin Percent 96.4 Blood Gas Temperature 37.0 Blood Gas Modality ROOM AIR FiO2 21.0 Blood Gas Critical Value Read Back TAN GAMEZ Blood Gas Notified Whom Blood Gas Notified Time 04/13/2019 2:11:15 PM Medications Medication Current Medications Ondansetron HCl (Zofran Inj) 4 mg BRIDGE ORDER PRN IV NAUSEA/VOMITING; Start 04/12/19 at 19:30; Stop 04/13/19 at 19:29 Acetaminophen (Tylenol Tab) 650 mg ER BRIDGE PRN PO .MILD PAIN 1-3 OR TEMP; Start 04/12/19 at 19:30; Stop 04/13/19 at 19:29 IV Flush (NS 3 ml) 3 ml PER PROTOCOL IV ; Start 04/12/19 at 19:30 Ondansetron HCl (Zofran Inj) 4 mg Q6H PRN IV NAUSEA/VOMITING; Start 04/12/19 at 19:30 Acetaminophen (Tylenol Tab) 650 mg Q6H PRN PO .PAIN 1-3 OR TEMP; Start 04/12/19 at 19:30 Acetaminophen/ Hydrocodone Bitart ([place] (5/325)) 1 tab Q6H PRN PO .MOD PAIN 4- 6; Start 04/12/19 at 19:30 Morphine Sulfate (morphine) 2 mg Q4H PRN IV .SEVERE PAIN 7-10; Start 04/12/19 at 19:30 Docusate Sodium (Colace) 100 mg Q12H PRN PO .CONSTIPATION; Start 04/12/19 at 19:30 Magnesium Hydroxide (Milk Of Mag) 30 ml DAILY PRN PO .CONSTIPATION; Start 04/12/19 at 19:30 Lorazepam (Ativan) 0.5 mg Q6H PRN IV ANXIETY; Start 04/12/19 at 19:30 Albuterol/ Ipratropium (Duoneb) 3 ml Q4H RESP THERAPY PRN HHN SHORTNESS OF BREATH; Start 04/12/19 at 19:30 Hydralazine HCl (Apresoline) 10 mg Q6H PRN IV ELEVATED BLOOD PRESSURE; Start 04/12/19 at 19:30 Nitroglycerin (Nitroglycerin (Sl Tab) 0.4 Mg) 1 tab Q5M PRN SL ANGINA; Start 04/12/19 at 19:30 Metoprolol Tartrate (Lopressor) 25 mg BID PO Last administered on 04/12/19at 22:37; Admin Dose 25 MG; Start 04/12/19 at 21:00 Tamsulosin HCl (Flomax) 0.4 mg DAILY@2100 PO ; Start 04/13/19 at 21:00 Sodium Bicarbonate 150 meq/Dextrose 1,000 ml @ 75 mls/hr [id number] IV Last administered on 04/13/19at 11:48; Admin Dose 75 MLS/HR; Start 04/13/19 at 10:30 SILVER ABBOTT April 13, 2019 18:28
[2019-04-13] MEDS ORDERED: SOD CHLORIDE 0.9% 1,000 ML IV ONE (20:00)
[2019-04-13] MEDS: TAMSULOSIN (SR) 0.4 MG CAP PO SCH (21:00)
[2019-04-14] VITALS (9 sets, daily range): BP systolic 95–128; BP diastolic 52–64; PULSE 62–91; RESP 18–20
[2019-04-14] MEDS: MIDODRINE 5 MG TAB PO SCH ×4 (00:06→21:13)
[2019-04-14] MEDS: METOPROLOL 25 MG TAB PO SCH ×3 (09:00→21:12)
--- NOTE | 2019-04-14 09:20 | PN ---
DATE: 04/14/2019 SUBJECTIVE: The patient is stable. The patient is noncompliant. No other acute events noted. OBJECTIVE: VITAL SIGNS: Blood pressure is 95/52, pulse 68, respirations 20, temperature 98.3. HEENT: Head is normocephalic. NECK: Supple. HEART: Regular rate. LUNGS: Show diminished breath sounds at the base. ABDOMEN: Soft, nontender to palpation without rebound or guarding. EXTREMITIES: Negative for clubbing, cyanosis, no edema. DERMATOLOGIC: No rashes. MUSCULOSKELETAL: No joint effusion. NEUROLOGIC: No change in exam. MEDICATIONS: Reviewed. LABORATORY DATA: Currently pending. ASSESSMENT AND PLAN: 1. Oliguric acute kidney injury on top of chronic kidney disease with previous baseline creatinine o f 1.5 mg/dL. Etiology of acute kidney injury is secondary to obstructive uropathy. The patient is s tatus post Mcdermott catheter placement. The patient's urinary output has been excellent. We will keeley nue to monitor. Follow up renal panel. 2. Bilateral hydronephrosis. Etiology is possibly secondary to benign prostatic hypertrophy, urinar y retention. The patient status post Mcdermott catheter placement. Continue Flomax. Consider voiding t rial once renal function is improved. 3. Metabolic acidosis. Continue bicarbonate drip. 4. Hypotension. Continue IV fluids. 5. Mineral bone disorder, monitor calcium and phosphorus levels. Continue phosphate binders. 6. Sepsis secondary to urinary tract infection. Continue current antibiotic regimen. 7. Osteoarthritis. Continue medical management. 8. General debility. Dictated By: LAUREN WAGGONER DO NR/NTS Conf#: [id number] DID#: [id number] CC: MILO COOMBS MD; LISANDRA MCCOY MD; SILVER ABBOTT MD;*EndCC*
[2019-04-14] MEDS: SEVELAMER CARBONATE 800 MG TABLET PO SCH ×2 (12:16→17:55)
[2019-04-14] MEDS: SODIUM BICARBONATE (IV ADD) 150 MEQ in DEXTROSE 5% 850 ML IV SCH ×2 (13:10→21:37)
--- NOTE | 2019-04-14 17:27 | PN ---
Date/Time of Note Date/Time of Note DATE: 04/14/19 TIME: 17:25 Assessment/Plan VTE Prophylaxis Risk score (from Ns)>0 risk: 3 SCD applied (from Ns): Yes Pharmacological prophylaxis: heparin Lines/Catheters IV Catheter Type (from Nrs): Mid Line Urinary Cath still in place: Yes Reason Cath still needed: urinary retention Assessment/Plan Hospital Course ADRIAN from obstrucitve uropathy: - Continue arceo - Montior labs if he allows Metabolic acidosis: - From renal failure - Will hopefully correct with relief of obstruction BPH: - Flomax Result Diagram: 04/14/19 1428 04/14/19 1428 Results 24hrs Laboratory Tests Test 04/14/19 14:28 White Blood Count 15.3 H Red Blood Count 3.67 L Hemoglobin 9.9 L Hematocrit 30.9 L Mean Corpuscular Volume 84.2 Mean Corpuscular Hemoglobin 27.0 L Mean Corpuscular Hemoglobin Concent 32.0 Red Cell Distribution Width 17.1 H Platelet Count 272 Mean Platelet Volume 9.6 Immature Granulocytes % 0.900 H Neutrophils % 82.8 H Lymphocytes % 6.6 L Monocytes % 9.0 Eosinophils % 0.4 Basophils % 0.3 Nucleated Red Blood Cells % 0.0 Immature Granulocytes # 0.130 H Neutrophils # 12.7 H Lymphocytes # 1.0 Monocytes # 1.4 H Eosinophils # 0.1 Basophils # 0.1 Nucleated Red Blood Cells # 0.0 Sodium Level 137 Potassium Level 3.6 Chloride Level 115 H Carbon Dioxide Level 11 L Anion Gap 11 Blood Urea Nitrogen 88 H Creatinine 4.19 #H Est Glomerular Filtrat Rate mL/min 14 L Glucose Level 143 Calcium Level 8.6 Subjective 24 Hr Interval Summary Free Text/Dictation Having good UOP into arceo Refused labs and IV I convinced him to get labs tomorrow AM Exam/Review of Systems Exam Vitals Vital Signs Date Temp Pulse Resp B/P (MAP) Pulse Ox O2 O2 Flow FiO2 Time Delivery Rate 04/14/19 62 16:00 04/14/19 98.6 20 98/56 (70) 95 12:10 04/14/19 Room Air 09:11 Intake and Output 04/13/19 04/13/19 04/14/19 1515:00 23:00 07:00 IntakeIntake Total 750 ml 800 ml OutputOutput Total 1400 ml 1100 ml 1200 ml BalanceBalance -1400 ml -350 ml -400 ml Constitutional: alert, oriented, well developed Psych: no complaints, nl mood/affect Head: normocephalic, atraumatic Eyes: nl conjunctiva, EOMI, nl lids, nl sclera, PERRL ENMT: nl external ears & nose, nl lips & teeth, nl nasal mucosa & septum Neck: supple, non-tender Respiratory: clear to auscultation, normal air movement Cardiovascular: regular rate and rhythm, nl pulses Gastrointestinal: soft, nl liver, spleen, non-tender Musculoskeletal: nl extremities to inspection, nl gait and stance Extremities: normal pulses Neurological: LICENSED [employer] II-XII intact, nl mental status, nl speech, nl strength Skin: nl turgor; No rash or lesions Lymph: nl lymph nodes Results Results 24hrs Laboratory Tests Test 04/14/19 14:28 White Blood Count 15.3 H Red Blood Count 3.67 L Hemoglobin 9.9 L Hematocrit 30.9 L Mean Corpuscular Volume 84.2 Mean Corpuscular Hemoglobin 27.0 L Mean Corpuscular Hemoglobin Concent 32.0 Red Cell Distribution Width 17.1 H Platelet Count 272 Mean Platelet Volume 9.6 Immature Granulocytes % 0.900 H Neutrophils % 82.8 H Lymphocytes % 6.6 L Monocytes % 9.0 Eosinophils % 0.4 Basophils % 0.3 Nucleated Red Blood Cells % 0.0 Immature Granulocytes # 0.130 H Neutrophils # 12.7 H Lymphocytes # 1.0 Monocytes # 1.4 H Eosinophils # 0.1 Basophils # 0.1 Nucleated Red Blood Cells # 0.0 Sodium Level 137 Potassium Level 3.6 Chloride Level 115 H Carbon Dioxide Level 11 L Anion Gap 11 Blood Urea Nitrogen 88 H Creatinine 4.19 #H Est Glomerular Filtrat Rate mL/min 14 L Glucose Level 143 Calcium Level 8.6 Medications Medication Current Medications IV Flush (NS 3 ml) 3 ml PER PROTOCOL IV ; Start 04/12/19 at 19:30 Ondansetron HCl (Zofran Inj) 4 mg Q6H PRN IV NAUSEA/VOMITING; Start 04/12/19 at 19:30 Acetaminophen (Tylenol Tab) 650 mg Q6H PRN PO .PAIN 1-3 OR TEMP; Start 04/12/19 at 19:30 Acetaminophen/ Hydrocodone Bitart ([place] (5/325)) 1 tab Q6H PRN PO .MOD PAIN 4- 6; Start 04/12/19 at 19:30 Morphine Sulfate (morphine) 2 mg Q4H PRN IV .SEVERE PAIN 7-10; Start 04/12/19 at 19:30 Docusate Sodium (Colace) 100 mg Q12H PRN PO .CONSTIPATION; Start 04/12/19 at 19:30 Magnesium Hydroxide (Milk Of Mag) 30 ml DAILY PRN PO .CONSTIPATION; Start 04/12/19 at 19:30 Lorazepam (Ativan) 0.5 mg Q6H PRN IV ANXIETY; Start 04/12/19 at 19:30 Albuterol/ Ipratropium (Duoneb) 3 ml Q4H RESP THERAPY PRN HHN SHORTNESS OF BREATH; Start 04/12/19 at 19:30 Hydralazine HCl (Apresoline) 10 mg Q6H PRN IV ELEVATED BLOOD PRESSURE; Start 04/12/19 at 19:30 Nitroglycerin (Nitroglycerin (Sl Tab) 0.4 Mg) 1 tab Q5M PRN SL ANGINA; Start 04/12/19 at 19:30 Metoprolol Tartrate (Lopressor) 25 mg BID PO Last administered on 04/12/19at 22:37; Admin Dose 25 MG; Start 04/12/19 at 21:00 Tamsulosin HCl (Flomax) 0.4 mg DAILY@2100 PO ; Start 04/13/19 at 21:00 Sodium Bicarbonate 150 meq/Dextrose 1,000 ml @ 75 mls/hr [id number] IV Last administered on 04/13/19at 11:48; Admin Dose 75 MLS/HR; Start 04/13/19 at 10:30 Midodrine (Proamatine) 10 mg Q8 PO Last administered on 04/14/19at 00:06; Admin Dose 10 MG; Start 04/13/19 at 22:30 Sevelamer Carbonate (Renvela) 800 mg WITH MEALS PO Last administered on 04/14/19at 12:16; Admin Dose 800 MG; Start 04/14/19 at 11:50 HOLDEN VALLE MD April 14, 2019 17:27
--- NOTE | 2019-04-14 20:34 | CONS ---
Consult Date/Type/Reason Admit Date/Time April 12, 2019 at 19:05 Initial Consult Date 04/13/19 Type of Consultation: Urology Reason for Consultation Urinary retention and renal failure Requesting Provider: LISANDRA MCCOY MD Date/Time of Note DATE: 04/14/19 TIME: 20:30 Subjective The patient states that he does not feel good however when I asked him if he has any pain he denies having any pain. I asked him to tell me what does he mean by not feeling good. He said forget it Objective Vitals Vital Signs Date Temp Pulse Resp B/P (MAP) Pulse Ox O2 O2 Flow FiO2 Time Delivery Rate 04/14/19 73 20:00 04/14/19 98.0 20 124/64 99 20:00 (84) 04/14/19 Room Air 09:11 Intake and Output 04/13/19 04/13/19 04/14/19 1515:00 23:00 07:00 IntakeIntake Total 750 ml 800 ml OutputOutput Total 1400 ml 1100 ml 1200 ml BalanceBalance -1400 ml -350 ml -400 ml Exam The Mcdermott catheter is draining clear urine and his renal function continues to improve. Results/Medications Result Diagram: 04/14/19 1428 04/14/19 1428 Results 24 hrs Laboratory Tests Test 04/14/19 14:28 White Blood Count 15.3 H Red Blood Count 3.67 L Hemoglobin 9.9 L Hematocrit 30.9 L Mean Corpuscular Volume 84.2 Mean Corpuscular Hemoglobin 27.0 L Mean Corpuscular Hemoglobin Concent 32.0 Red Cell Distribution Width 17.1 H Platelet Count 272 Mean Platelet Volume 9.6 Immature Granulocytes % 0.900 H Neutrophils % 82.8 H Lymphocytes % 6.6 L Monocytes % 9.0 Eosinophils % 0.4 Basophils % 0.3 Nucleated Red Blood Cells % 0.0 Immature Granulocytes # 0.130 H Neutrophils # 12.7 H Lymphocytes # 1.0 Monocytes # 1.4 H Eosinophils # 0.1 Basophils # 0.1 Nucleated Red Blood Cells # 0.0 Sodium Level 137 Potassium Level 3.6 Chloride Level 115 H Carbon Dioxide Level 11 L Anion Gap 11 Blood Urea Nitrogen 88 H Creatinine 4.19 #H Est Glomerular Filtrat Rate mL/min 14 L Glucose Level 143 Calcium Level 8.6 Home Meds Active Scripts Tamsulosin Hcl* (Flomax*) 0.4 Mg Cap.er.24h, 0.4 MG PO DAILY, #30 CAP Prov:FRANCA JEAN MD 10/04/18 Metoprolol Tartrate* (Lopressor*) 25 Mg Tab, 25 MG PO BID for 28 Days, #60 TAB Prov:JOSE ANTONIO JESUS MD 11/30/16 Medications Current Medications IV Flush (NS 3 ml) 3 ml PER PROTOCOL IV ; Start 04/12/19 at 19:30 Ondansetron HCl (Zofran Inj) 4 mg Q6H PRN IV NAUSEA/VOMITING; Start 04/12/19 at 19:30 Acetaminophen (Tylenol Tab) 650 mg Q6H PRN PO .PAIN 1-3 OR TEMP; Start 04/12/19 at 19:30 Acetaminophen/ Hydrocodone Bitart ([place] (5/325)) 1 tab Q6H PRN PO .MOD PAIN 4- 6; Start 04/12/19 at 19:30 Morphine Sulfate (morphine) 2 mg Q4H PRN IV .SEVERE PAIN 7-10; Start 04/12/19 at 19:30 Docusate Sodium (Colace) 100 mg Q12H PRN PO .CONSTIPATION; Start 04/12/19 at 19:30 Magnesium Hydroxide (Milk Of Mag) 30 ml DAILY PRN PO .CONSTIPATION; Start 04/12/19 at 19:30 Lorazepam (Ativan) 0.5 mg Q6H PRN IV ANXIETY; Start 04/12/19 at 19:30 Albuterol/ Ipratropium (Duoneb) 3 ml Q4H RESP THERAPY PRN HHN SHORTNESS OF BREATH; Start 04/12/19 at 19:30 Hydralazine HCl (Apresoline) 10 mg Q6H PRN IV ELEVATED BLOOD PRESSURE; Start 04/12/19 at 19:30 Nitroglycerin (Nitroglycerin (Sl Tab) 0.4 Mg) 1 tab Q5M PRN SL ANGINA; Start 04/12/19 at 19:30 Metoprolol Tartrate (Lopressor) 25 mg BID PO Last administered on 04/12/19at 22:37; Admin Dose 25 MG; Start 04/12/19 at 21:00 Tamsulosin HCl (Flomax) 0.4 mg DAILY@2100 PO ; Start 04/13/19 at 21:00 Sodium Bicarbonate 150 meq/Dextrose 1,000 ml @ 75 mls/hr [id number] IV Last administered on 04/13/19at 11:48; Admin Dose 75 MLS/HR; Start 04/13/19 at 10:30 Midodrine (Proamatine) 10 mg Q8 PO Last administered on 04/14/19at 00:06; Admin Dose 10 MG; Start 04/13/19 at 22:30 Sevelamer Carbonate (Renvela) 800 mg WITH MEALS PO Last administered on 04/14/19at 12:16; Admin Dose 800 MG; Start 04/14/19 at 11:50 Assessment/Plan Hospital Course (Demo Recall) 68-year-old male presented to the emergency room complaining of bilateral shoulder pain. The patient is known to have a history of chronic kidney diseas e, baseline creatinine around 1.5 mg/dL, history of methamphetamine use, history of hepatitis C, history of urinary retention, history of shingles, cellulitis, osteoarthritis. X-ray of his shoulders showed osteoarthritic changes in the glenohumeral joint. The patient also had laboratory data drawn and that showed a creatinine of 7, bicarb of 8, potassium 5.3. Because of that he underwent an ultrasound of the kidneys and that showed severe bilateral hydronephrosis. A Mcdermott catheter was placed with excellent urinary output. A urological consultation was requested. The patient denies any urinary incontinence. He denies any dysuria and he also denies any hematuria. He is homeless and most of the questions were answered by I do not remember and I do not know. The patient had urinary retention and because of that bilateral hydronephrosis. His prostate appears to be enlarged but I doubt it to be the only reason for his urinary retention. The Mcdermott catheter is draining clear urine and his renal function continues to improve his creatinine now is 4.19 and his PSA is 0.1. Continue the present treatment and keep the Mcdermott catheter in place. MILO COOMBS MD April 14, 2019 20:34
[2019-04-14] MEDS: TAMSULOSIN (SR) 0.4 MG CAP PO SCH ×2 (21:00→21:11)
[2019-04-15] VITALS (9 sets, daily range): BP systolic 81–104; BP diastolic 50–64; PULSE 66–85; RESP 17–19
[2019-04-15] MEDS: MIDODRINE 5 MG TAB PO SCH ×3 (05:00→22:00)
[2019-04-15] MEDS ORDERED: SOD CHLORIDE 0.9% 1,000 ML IV ONE (05:00)
[2019-04-15] MEDS: METOPROLOL 25 MG TAB PO SCH ×2 (09:00→21:00)
--- NOTE | 2019-04-15 09:14 | PN ---
DATE: 04/15/2019 SUBJECTIVE: The patient is stable, no events overnight. No fevers, chills, nausea or vomiting. OBJECTIVE: VITAL SIGNS: Blood pressure is 81/50, respirations 19, pulse 70, temperature 97.8. HEENT: Head is normocephalic. NECK: Supple. HEART: Regular rate. LUNGS: Show diminished breath sounds at the base. ABDOMEN: Soft, nontender to palpation without rebound or guarding. EXTREMITIES: Negative for clubbing, cyanosis, no edema. DERMATOLOGIC: No rashes. MUSCULOSKELETAL: No joint effusion. NEUROLOGIC: No change in exam. MEDICATIONS: Reviewed. LABORATORY DATA: Reviewed. ASSESSMENT AND PLAN: 1. Nonoliguric acute kidney injury on top of chronic kidney disease with previous baseline creatinin e of 1.5 mg/dL. Etiology of acute kidney injury is secondary to obstructive uropathy. The patient i s status post Mcdermott catheter placement with excellent urinary output and improvement in renal functio n. Renal function is slowly improving. At this point, continue current treatment plan, supportive c are, renally dose all medications. 2. Bilateral hydronephrosis. Etiology may be secondary to benign prostatic hypertrophy, urinary ret ention. The patient is status post Mcdermott catheter placement. Continue Flomax. Follow up with urolo gy. 3. Metabolic acidosis, improving. Continue bicarbonate drip. 4. Hypertension. Continue IV fluids. 5. Mineral bone disorder, monitor calcium and phosphorus levels. Continue phosphate binders. 6. Sepsis secondary to urinary tract infection. Continue current antibiotic regimen. 7. Osteoarthritis. Continue medical management. 8. General debility. Dictated By: LAUREN WAGGONER DO NR/NTS Conf#: [id number] DID#: [id number] CC: MILO COOMBS MD; HOLDEN VALLE MD; LISANDRA MCCOY MD;*EndCC*
[2019-04-15] MEDS: SEVELAMER CARBONATE 800 MG TABLET PO SCH ×3 (09:27→18:29)
[2019-04-15] MEDS: SODIUM BICARBONATE (IV ADD) 150 MEQ in DEXTROSE 5% 850 ML IV SCH (15:35)
--- NOTE | 2019-04-15 16:06 | PN ---
Date/Time of Note Date/Time of Note DATE: 04/15/19 TIME: 16:03 Assessment/Plan VTE Prophylaxis Risk score (from Ns)>0 risk: 3 SCD applied (from Ns): Yes Pharmacological prophylaxis: heparin Lines/Catheters IV [facility]atheter [facility]from [facility]): Peripheral IV Urinary Cath still in place: Yes Reason Cath still needed: urinary retention Assessment/Plan Hospital Course ADRIAN from obstrucitve uropathy: - Continue arceo - Montior labs if he allows - Dr Stark Metabolic acidosis: - From renal failure - Will hopefully correct with relief of obstruction BPH: - Flomax - Management per Dr Farley Result Diagram: 04/15/19 0742 04/15/19 0742 Results 24hrs Laboratory Tests Test 04/15/19 07:42 White Blood Count 13.3 H Red Blood Count 3.25 L Hemoglobin 8.9 L Hematocrit 27.0 L Mean Corpuscular Volume 83.1 Mean Corpuscular Hemoglobin 27.4 L Mean Corpuscular Hemoglobin Concent 33.0 Red Cell Distribution Width 16.7 H Platelet Count 251 Mean Platelet Volume 10.0 Immature Granulocytes % 0.800 H Neutrophils % 78.5 H Lymphocytes % 8.6 L Monocytes % 10.1 Eosinophils % 1.6 Basophils % 0.4 Nucleated Red Blood Cells % 0.0 Immature Granulocytes # 0.110 H Neutrophils # 10.5 H Lymphocytes # 1.2 Monocytes # 1.4 H Eosinophils # 0.2 Basophils # 0.1 Nucleated Red Blood Cells # 0.0 Sodium Level 136 Potassium Level 3.5 Chloride Level 113 H Carbon Dioxide Level 14 L Anion Gap 9 Blood Urea Nitrogen 81 H Creatinine 3.66 H Est Glomerular Filtrat Rate mL/min 17 L Glucose Level 115 Calcium Level 8.3 L Phosphorus Level 4.9 Magnesium Level 1.9 Subjective 24 Hr Interval Summary Free Text/Dictation A bit ornery Denies localizing complaitns Improving renal function Good UOP Exam/Review of Systems Exam Vitals Vital Signs Date Temp Pulse Resp B/P (MAP) Pulse Ox O2 O2 Flow FiO2 Time Delivery Rate 04/15/19 98.8 68 17 97/52 (67) 96 15:32 04/14/19 Room Air 09:11 Intake and Output 04/14/19 04/14/19 04/15/19 1515:00 23:00 07:00 IntakeIntake Total 1100 ml OutputOutput Total 1200 ml BalanceBalance -100 ml Results Results 24hrs Laboratory Tests Test 04/15/19 07:42 White Blood Count 13.3 H Red Blood Count 3.25 L Hemoglobin 8.9 L Hematocrit 27.0 L Mean Corpuscular Volume 83.1 Mean Corpuscular Hemoglobin 27.4 L Mean Corpuscular Hemoglobin Concent 33.0 Red Cell Distribution Width 16.7 H Platelet Count 251 Mean Platelet Volume 10.0 Immature Granulocytes % 0.800 H Neutrophils % 78.5 H Lymphocytes % 8.6 L Monocytes % 10.1 Eosinophils % 1.6 Basophils % 0.4 Nucleated Red Blood Cells % 0.0 Immature Granulocytes # 0.110 H Neutrophils # 10.5 H Lymphocytes # 1.2 Monocytes # 1.4 H Eosinophils # 0.2 Basophils # 0.1 Nucleated Red Blood Cells # 0.0 Sodium Level 136 Potassium Level 3.5 Chloride Level 113 H Carbon Dioxide Level 14 L Anion Gap 9 Blood Urea Nitrogen 81 H Creatinine 3.66 H Est Glomerular Filtrat Rate mL/min 17 L Glucose Level 115 Calcium Level 8.3 L Phosphorus Level 4.9 Magnesium Level 1.9 Medications Medication Current Medications IV Flush (NS 3 ml) 3 ml PER PROTOCOL IV ; Start 04/12/19 at 19:30 Ondansetron HCl (Zofran Inj) 4 mg Q6H PRN IV NAUSEA/VOMITING; Start 04/12/19 at 19:30 Acetaminophen (Tylenol Tab) 650 mg Q6H PRN PO .PAIN 1-3 OR TEMP; Start 04/12/19 at 19:30 Acetaminophen/ Hydrocodone Bitart ([place] (5/325)) 1 tab Q6H PRN PO .MOD PAIN 4- 6; Start 04/12/19 at 19:30 Morphine Sulfate (morphine) 2 mg Q4H PRN IV .SEVERE PAIN 7-10; Start 04/12/19 at 19:30 Docusate Sodium (Colace) 100 mg Q12H PRN PO .CONSTIPATION; Start 04/12/19 at 19:30 Magnesium Hydroxide (Milk Of Mag) 30 ml DAILY PRN PO .CONSTIPATION; Start 04/12/19 at 19:30 Lorazepam (Ativan) 0.5 mg Q6H PRN IV ANXIETY; Start 04/12/19 at 19:30 Albuterol/ Ipratropium (Duoneb) 3 ml Q4H RESP THERAPY PRN HHN SHORTNESS OF BREATH; Start 04/12/19 at 19:30 Hydralazine HCl (Apresoline) 10 mg Q6H PRN IV ELEVATED BLOOD PRESSURE; Start 04/12/19 at 19:30 Nitroglycerin (Nitroglycerin (Sl Tab) 0.4 Mg) 1 tab Q5M PRN SL ANGINA; Start 04/12/19 at 19:30 Metoprolol Tartrate (Lopressor) 25 mg BID PO Last administered on 04/12/19at 22:37; Admin Dose 25 MG; Start 04/12/19 at 21:00 Tamsulosin HCl (Flomax) 0.4 mg DAILY@2100 PO ; Start 04/13/19 at 21:00 Sodium Bicarbonate 150 meq/Dextrose 1,000 ml @ 75 mls/hr [id number] IV Last administered on 04/15/19at 15:35; Admin Dose 75 MLS/HR; Start 04/13/19 at 10:30 Midodrine (Proamatine) 10 mg Q8 PO Last administered on 04/15/19at 13:28; Admin Dose 10 MG; Start 04/13/19 at 22:30 Sevelamer Carbonate (Renvela) 800 mg WITH MEALS PO Last administered on 04/15/19 13:27; Admin Dose 800 MG; Start 04/14/19 at 11:50 HOLDEN VALLE MD April 15, 2019 16:06
[2019-04-15] MEDS: TAMSULOSIN (SR) 0.4 MG CAP PO SCH (22:04)
[2019-04-16] VITALS (8 sets, daily range): BP systolic 79–99; BP diastolic 50–55; PULSE 70–80; RESP 16–18
[2019-04-16] MEDS: SODIUM BICARBONATE (IV ADD) 150 MEQ in DEXTROSE 5% 850 ML IV SCH (05:50)
[2019-04-16] MEDS: MIDODRINE 5 MG TAB PO SCH ×2 (06:00→17:00)
[2019-04-16] MEDS ORDERED: SOD CHLORIDE 0.9% 1,000 ML IV ONE (06:30)
[2019-04-16] MEDS ORDERED: POTASSIUM CHLORIDE (SR) 20 MEQ TAB PO STA (08:22)
[2019-04-16] MEDS: SEVELAMER CARBONATE 800 MG TABLET PO SCH ×3 (09:10→17:47)
--- NOTE | 2019-04-16 10:06 | PN ---
DATE: 04/16/2019 SUBJECTIVE: The patient remains hypotensive, possible orthostatic hypotension. The patient remains noncompliant. No other events noted. OBJECTIVE: VITAL SIGNS: Blood pressure is 91/53, pulse 75, respirations 16, temperature 98.1. HEENT: Head is normocephalic. NECK: Supple. HEART: Regular rate. LUNGS: Show diminished breath sounds at the base. ABDOMEN: Soft, nontender to palpation. No rebound or guarding. EXTREMITIES: Negative for clubbing, cyanosis, no edema. DERMATOLOGIC: No rashes. MUSCULOSKELETAL: No joint effusion. NEUROLOGIC: No change in exam. MEDICATIONS: The patient's medications have been reviewed. LABORATORY DATA: Has been reviewed. ASSESSMENT AND PLAN: 1. Nonoliguric acute kidney injury on top of chronic kidney disease with previous baseline creatinin e of 1.5 mg/dL. Etiology of ADRIAN is secondary to obstructive uropathy. The patient's renal function i s improving after Mcdermott catheter placement. Continue current treatment plans, supportive care, renal ly dose all meds. 2. Bilateral hydronephrosis. Etiology may be secondary to BPH, urinary retention. The patient is s tatus post Mcdermott catheter. Continue Flomax. Follow up with urology. 3. Metabolic acidosis, improving. Will continue bicarbonate drip. 4. Hypotension. Continue IV fluids. The patient is positive orthostatic. 5. Hypokalemia, replete with potassium chloride. 6. Mineral bone disorder. Monitor calcium and phosphorus levels. 7. Sepsis secondary to urinary tract infection. Continue current antibiotic regimen. 8. Arthritis. Continue medical management. 9. General debility. Dictated By: LAUREN WAGGONER DO NR/NTS Conf#: [id number] DID#: [id number] CC: LISANDRA MCCOY MD; HOLDEN VALLE MD; MILO COOMBS MD;*EndCC*
--- NOTE | 2019-04-16 20:22 | CONS ---
Consult Date/Type/Reason Admit Date/Time April 12, 2019 at 19:05 Initial Consult Date 04/13/19 Type of Consultation: Urology Reason for Consultation Urinary retention and bilateral hydronephrosis and renal failure Requesting Provider: LISANDRA MCCOY MD Date/Time of Note DATE: 04/16/19 TIME: 20:19 Subjective The patient is awake and states that he is feeling much better today. Objective Vitals Vital Signs Date Temp Pulse Resp B/P (MAP) Pulse Ox O2 O2 Flow FiO2 Time Delivery Rate 04/16/19 98.2 70 18 99/55 (70) 96 16:39 04/16/19 Room Air 07:42 Intake and Output 04/15/19 04/15/19 04/16/19 1515:00 23:00 07:00 IntakeIntake Total 1350 ml 500 ml OutputOutput Total 1600 ml 950 ml BalanceBalance -250 ml -450 ml Exam The abdomen is soft, the Mcdermott catheter is draining clear urine. His renal function continues to improve Results/Medications Result Diagram: 04/16/1962004/16/19 0621 Results 24 hrs Laboratory Tests Test 04/16/19 06:21 White Blood Count 12.6 H Red Blood Count 3.13 L Hemoglobin 8.5 L Hematocrit 26.4 L Mean Corpuscular Volume 84.3 Mean Corpuscular Hemoglobin 27.2 L Mean Corpuscular Hemoglobin Concent 32.2 Red Cell Distribution Width 17.0 H Platelet Count 261 Mean Platelet Volume 9.5 Immature Granulocytes % 1.000 H Neutrophils % 74.2 Lymphocytes % 10.8 L Monocytes % 11.0 Eosinophils % 2.5 Basophils % 0.5 Nucleated Red Blood Cells % 0.0 Immature Granulocytes # 0.120 H Neutrophils # 9.4 H Lymphocytes # 1.4 Monocytes # 1.4 H Eosinophils # 0.3 Basophils # 0.1 Nucleated Red Blood Cells # 0.0 Sodium Level 140 Potassium Level 3.0 L Chloride Level 111 H Carbon Dioxide Level 18 L Anion Gap 11 Blood Urea Nitrogen 63 H Creatinine 2.92 H Est Glomerular Filtrat Rate mL/min 21 L Glucose Level 127 Calcium Level 8.2 L Phosphorus Level 3.6 Magnesium Level 1.7 Home Meds Active Scripts Tamsulosin Hcl* (Flomax*) 0.4 Mg Cap.er.24h, 0.4 MG PO DAILY, #30 CAP Prov:EKMEKJIAN,NELLIE R. MD 10/04/18 Metoprolol Tartrate* (Lopressor*) 25 Mg Tab, 25 MG PO BID for 28 Days, #60 TAB Prov:JOSE ANTONIO JESUS MD 11/30/16 Medications Current Medications IV Flush (NS 3 ml) 3 ml PER PROTOCOL IV ; Start 04/12/19 at 19:30 Ondansetron HCl (Zofran Inj) 4 mg Q6H PRN IV NAUSEA/VOMITING; Start 04/12/19 at 19:30 Acetaminophen (Tylenol Tab) 650 mg Q6H PRN PO .PAIN 1-3 OR TEMP; Start 04/12/19 at 19:30 Acetaminophen/ Hydrocodone Bitart ([place] (5/325)) 1 tab Q6H PRN PO .MOD PAIN 4- 6; Start 04/12/19 at 19:30 Morphine Sulfate (morphine) 2 mg Q4H PRN IV .SEVERE PAIN 7-10; Start 04/12/19 at 19:30 Docusate Sodium (Colace) 100 mg Q12H PRN PO .CONSTIPATION; Start 04/12/19 at 19:30 Magnesium Hydroxide (Milk Of Mag) 30 ml DAILY PRN PO .CONSTIPATION; Start 04/12/19 at 19:30 Lorazepam (Ativan) 0.5 mg Q6H PRN IV ANXIETY; Start 04/12/19 at 19:30 Albuterol/ Ipratropium (Duoneb) 3 ml Q4H RESP THERAPY PRN HHN SHORTNESS OF BREATH; Start 04/12/19 at 19:30 Hydralazine HCl (Apresoline) 10 mg Q6H PRN IV ELEVATED BLOOD PRESSURE; Start 04/12/19 at 19:30 Nitroglycerin (Nitroglycerin (Sl Tab) 0.4 Mg) 1 tab Q5M PRN SL ANGINA; Start 04/12/19 at 19:30 Tamsulosin HCl (Flomax) 0.4 mg DAILY@2100 PO Last administered on 04/15/19at 22:04; Admin Dose 0.4 MG; Start 04/13/19 at 21:00 Sevelamer Carbonate (Renvela) 800 mg WITH MEALS PO Last administered on 03/20 08/07at 12:18; Admin Dose 800 MG; Start 04/14/19 at 11:50 Assessment/Plan Hospital Course (Demo Recall) 68-year-old male presented to the emergency room complaining of bilateral shoulder pain. The patient is known to have a history of chronic kidney disease, baseline creatinine around 1.5 mg/dL, history of methamphetamine use, history of hepatitis C, history of urinary retention, history of shingles, cellulitis, osteoarthritis. X-ray of his shoulders showed osteoarthritic changes in the glenohumeral joint. The patient also had laboratory data drawn and that showed a creatinine of 7, bicarb of 8, potassium 5.3. Because of that he underwent an ultrasound of the kidneys and that showed severe bilateral hydronephrosis. A Mcdermott catheter was placed with excellent urinary output. A urological consultation was requested. The patient denies any urinary incont inence. He denies any dysuria and he also denies any hematuria. He is homeless and most of the questions were answered by I do not remember and I do not know. The patient had urinary retention and because of that bilateral hydronephrosis. His prostate appears to be enlarged but I doubt it to be the only reason for his urinary retention. The Mcdermott catheter is draining clear urine and his renal function continues to improve his creatinine now is 2.92 and his PSA is 0.1. For now keep the Mcdermott catheter in place and see how far down the creatinine would come. Then we may try to take the Mcdermott catheter and see if he does void. Continue the tamsulosin as well. MILO COOMBS MD April 16, 2019 20:22
[2019-04-16] MEDS: TAMSULOSIN (SR) 0.4 MG CAP PO SCH (20:33)
[2019-04-17] VITALS (8 sets, daily range): BP systolic 82–100; BP diastolic 46–56; PULSE 73–92; RESP 18–19
[2019-04-17] MEDS: SEVELAMER CARBONATE 800 MG TABLET PO SCH ×3 (08:00→18:03)
--- NOTE | 2019-04-17 10:55 | PN ---
DATE: 04/17/2019 SUBJECTIVE: The patient remains stable. No events overnight. OBJECTIVE: VITAL SIGNS: Blood pressure is 99/55, pulse 73, respirations 18, temperature 97.9. HEENT: Head is normocephalic. NECK: Supple. HEART: Regular rate. LUNGS: Show diminished breath sounds at the base. ABDOMEN: Soft, nontender to palpation without rebound or guarding. EXTREMITIES: Negative for clubbing, cyanosis, no edema. DERMATOLOGIC: No rashes. MUSCULOSKELETAL: No joint effusion. NEUROLOGIC: No change in exam. MEDICATIONS: Reviewed. LABORATORY DATA: Reviewed. Laboratory data from 04/17/2019 is pending. ASSESSMENT AND PLAN: 1. Nonoliguric acute kidney injury on top of chronic kidney disease with previous baseline creatinin e of 1.5 mg/dL. Etiology of acute kidney injury is secondary to obstructive uropathy. The patient's renal function has improved after Mcdermott catheter placement. Continue to monitor. 2. Bilateral hydronephrosis. Etiology is secondary to benign prostatic hypertrophy and urinary rete ntion. The patient is status post Perm-A-Cath placement. Continue Flomax. Follow up with urology. 3. Metabolic acidosis, improving. The patient's bicarbonate drip was discontinued. Continue to mon itor. 4. Hypertension. Continue to encourage p.o. intake. We will give IV fluids as needed. 5. Hypokalemia. Continue to monitor and replete. 6. Sepsis secondary to urinary tract infection. The patient is completing antibiotic course. 7. Arthritis. Continue to monitor. 8. General debility. Dictated By: LAUREN WAGGONER DO NR/NTS Conf#: [id number] DID#: [id number] CC: MILO COOMBS MD; HOLDEN VALLE MD; LISANDRA MCCOY MD;*EndCC*
--- NOTE | 2019-04-17 15:05 | PN ---
Date/Time of Note Date/Time of Note DATE: 04/17/19 TIME: 15:04 Assessment/Plan VTE Prophylaxis Risk score (from Ns)>0 risk: 4 SCD applied (from Ns): Yes Pharmacological prophylaxis: heparin Lines/Catheters IV C[facility]from [facility] Saline Lock Urinary Cath still in place: Yes Reason Cath still needed: urinary retention Assessment/Plan Hospital Course ADRIAN from obstrucitve uropathy: - Continue arceo - Montior labs if he allows - Dr Stark Metabolic acidosis: - From renal failure - Will hopefully correct with relief of obstruction BPH: - Flomax - Management per Dr Farley Result Diagram: 04/17/19 0804 04/17/19 0804 Results 24hrs Laboratory Tests Test 04/17/19 08:04 White Blood Count 12.5 H Red Blood Count 2.93 L Hemoglobin 8.1 L Hematocrit 24.8 L Mean Corpuscular Volume 84.6 Mean Corpuscular Hemoglobin 27.6 L Mean Corpuscular Hemoglobin Concent 32.7 Red Cell Distribution Width 16.8 H Platelet Count 246 Mean Platelet Volume 9.3 Immature Granulocytes % 1.100 H Neutrophils % 77.0 Lymphocytes % 9.3 L Monocytes % 9.9 Eosinophils % 2.3 Basophils % 0.4 Nucleated Red Blood Cells % 0.0 Immature Granulocytes # 0.140 H Neutrophils # 9.6 H Lymphocytes # 1.2 Monocytes # 1.2 H Eosinophils # 0.3 Basophils # 0.1 Nucleated Red Blood Cells # 0.0 Sodium Level 138 Potassium Level 3.4 L Chloride Level 110 Carbon Dioxide Level 19 L Anion Gap 9 Blood Urea Nitrogen 45 #H Creatinine 2.56 H Est Glomerular Filtrat Rate mL/min 25 L Glucose Level 110 Calcium Level 8.3 L Phosphorus Level 2.9 Magnesium Level 1.6 L Subjective 24 Hr Interval Summary Free Text/Dictation Very pleasant No complaints Exam/Review of Systems Exam Vitals Vital Signs Date Temp Pulse Resp B/P (MAP) Pulse Ox O2 O2 Flow FiO2 Time Delivery Rate 04/17/19 89 12:00 04/17/19 98.2 18 100/51 97 Room Air 11:16 (67) Intake and Output 04/16/19 04/16/19 04/17/19 1515:00 23:00 07:00 IntakeIntake Total 1200 ml 890 ml 850 ml OutputOutput Total 1100 ml 1150 ml BalanceBalance 1200 ml -210 ml -300 ml Constitutional: alert, oriented, well developed Psych: no complaints, nl mood/affect Head: normocephalic, atraumatic Eyes: nl conjunctiva, EOMI, nl lids, nl sclera, PERRL ENMT: nl external ears & nose, nl lips & teeth, nl nasal mucosa & septum Neck: supple, non-tender Respiratory: clear to auscultation, normal air movement Cardiovascular: regular rate and rhythm, nl pulses Gastrointestinal: soft, nl liver, spleen, non-tender Musculoskeletal: nl extremities to inspection, nl gait and stance Extremities: normal pulses 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, nl mental status, nl speech, nl strength Skin: nl turgor; No rash or lesions Lymph: nl lymph nodes Results Results 24hrs Laboratory Tests Test 04/17/19 08:04 White Blood Count 12.5 H Red Blood Count 2.93 L Hemoglobin 8.1 L Hematocrit 24.8 L Mean Corpuscular Volume 84.6 Mean Corpuscular Hemoglobin 27.6 L Mean Corpuscular Hemoglobin Concent 32.7 Red Cell Distribution Width 16.8 H Platelet Count 246 Mean Platelet Volume 9.3 Immature Granulocytes % 1.100 H Neutrophils % 77.0 Lymphocytes % 9.3 L Monocytes % 9.9 Eosinophils % 2.3 Basophils % 0.4 Nucleated Red Blood Cells % 0.0 Immature Granulocytes # 0.140 H Neutrophils # 9.6 H Lymphocytes # 1.2 Monocytes # 1.2 H Eosinophils # 0.3 Basophils # 0.1 Nucleated Red Blood Cells # 0.0 Sodium Level 138 Potassium Level 3.4 L Chloride Level 110 Carbon Dioxide Level 19 L Anion Gap 9 Blood Urea Nitrogen 45 #H Creatinine 2.56 H Est Glomerular Filtrat Rate mL/min 25 L Glucose Level 110 Calcium Level 8.3 L Phosphorus Level 2.9 Magnesium Level 1.6 L Medications Medication Current Medications IV Flush (NS 3 ml) 3 ml PER PROTOCOL IV ; Start 04/12/19 at 19:30 Ondansetron HCl (Zofran Inj) 4 mg Q6H PRN IV NAUSEA/VOMITING; Start 04/12/19 at 19:30 Acetaminophen (Tylenol Tab) 650 mg Q6H PRN PO .PAIN 1-3 OR TEMP; Start 04/12/19 at 19:30 Acetaminophen/ Hydrocodone Bitart ([place] (5/325)) 1 tab Q6H PRN PO .MOD PAIN 4-6; Start 04/12/19 at 19:30 Morphine Sulfate (morphine) 2 mg Q4H PRN IV .SEVERE PAIN 7-10; Start 04/12/19 at 19:30 Docusate Sodium (Colace) 100 mg Q12H PRN PO .CONSTIPATION; Start 04/12/19 at 19:30 Magnesium Hydroxide (Milk Of Mag) 30 ml DAILY PRN PO .CONSTIPATION; Start 04/12/19 at 19:30 Lorazepam (Ativan) 0.5 mg Q6H PRN IV ANXIETY; Start 04/12/19 at 19:30 Albuterol/ Ipratropium (Duoneb) 3 ml Q4H RESP THERAPY PRN HHN SHORTNESS OF BREATH; Start 04/12/19 at 19:30 Hydralazine HCl (Apresoline) 10 mg Q6H PRN IV ELEVATED BLOOD PRESSURE; Start 04/12/19 at 19:30 Nitroglycerin (Nitroglycerin (Sl Tab) 0.4 Mg) 1 tab Q5M PRN SL ANGINA; Start 04/12/19 at 19:30 Tamsulosin HCl (Flomax) 0.4 mg DAILY@2100 PO Last administered on 04/16/19at 20:33; Admin Dose 0.4 MG; Start 04/13/19 at 21:00 Sevelamer Carbonate (Renvela) 800 mg WITH MEALS PO Last administered on 04/17/19at 11:48; Admin Dose 800 MG; Start 04/14/19 at 11:50 HOLDEN VALLE MD April 17, 2019 15:05
[2019-04-17] MEDS: TAMSULOSIN (SR) 0.4 MG CAP PO SCH (21:47)
[2019-04-18 01:55] VITALS: BP 98/60; PULSE 74; RESP 18
[2019-04-18 08:20] VITALS: BP 85/50; PULSE 72; RESP 17
[2019-04-18] MEDS ORDERED: POTASSIUM CHLORIDE (SR) 20 MEQ TAB PO STA (09:37)
[2019-04-18] MEDS: SEVELAMER CARBONATE 800 MG TABLET PO SCH ×3 (09:44→17:18)
--- NOTE | 2019-04-18 11:44 | PN ---
DATE: 04/18/2019 SUBJECTIVE: The patient is stable, no events overnight. OBJECTIVE: VITAL SIGNS: Blood pressure is 98/60, respirations 18, pulse 74, temperature 97.9. HEENT: Head is normocephalic. NECK: Supple. HEART: Regular rate. LUNGS: Show diminished breath sounds at the base. ABDOMEN: Soft, nontender to palpation without rebound or guarding. EXTREMITIES: Negative for clubbing, cyanosis, no edema. DERMATOLOGIC: No rashes. MUSCULOSKELETAL: No joint effusion. NEUROLOGIC: No change in exam. MEDICATIONS: Reviewed. LABORATORY DATA: Reviewed and pending. ASSESSMENT AND PLAN: 1. Nonoliguric acute kidney injury on top of chronic kidney disease with previous baseline creatinin e of 1.5 mg/dL. Etiology of acute kidney injury is secondary to obstructive uropathy. Renal functio n has been improving after Mcdermott catheter placement. Continue to monitor. 2. Bilateral hydronephrosis secondary to benign prostatic hypertrophy, urinary retention. The patie nt is status post Mcdermott catheter placement with improvement in renal function. Continue Flomax. Con tinue to follow up with urology. 3. Metabolic acidosis, improving. The patient is status post bicarbonate drip. 4. Hypotension. Continue to encourage p.o. intake. We will give IV fluids as needed. 5. Hypokalemia and hypomagnesemia. Continue to monitor and replete. 6. Sepsis secondary to urinary tract infection. The patient is completing antibiotic course. 7. Arthritis. Continue to monitor. 8. General debility. Dictated By: LAUREN WAGGONER DO NR/NTS Conf#: [id number] DID#: [id number] CC: HOLDEN VALLE MD; LISANDRA MCCOY MD; MILO COOMBS MD;*EndCC*
[2019-04-18 14:10] VITALS: BP 126/61; PULSE 63; RESP 17
--- NOTE | 2019-04-18 17:05 | PN ---
Date/Time of Note Date/Time of Note DATE: 04/18/19 TIME: 17:04 Assessment/Plan VTE Prophylaxis Risk score (from Ns)>0 risk: 4 SCD applied (from Ns): Yes Pharmacological prophylaxis: heparin Lines/Catheters IV [facility] Saline Lock Urinary Cath still in place: Yes Reason Cath still needed: urinary retention Assessment/Plan Hospital Course ADRIAN from obstrucitve uropathy: - Continue arceo - Montior labs if he allows - Dr Stark Metabolic acidosis: - From renal failure - Will hopefully correct with relief of obstruction BPH: - Flomax - Management per Dr Farley Result Diagram: 04/18/19 0717 04/18/19 0717 Results 24hrs Laboratory Tests Test 04/18/19 07:17 White Blood Count 12.3 H Red Blood Count 3.19 L Hemoglobin 8.7 L Hematocrit 27.2 L Mean Corpuscular Volume 85.3 Mean Corpuscular Hemoglobin 27.3 L Mean Corpuscular Hemoglobin Concent 32.0 Red Cell Distribution Width 16.5 H Platelet Count 275 Mean Platelet Volume 9.4 Immature Granulocytes % 1.600 H Neutrophils % 75.1 Lymphocytes % 9.3 L Monocytes % 10.4 Eosinophils % 3.1 Basophils % 0.5 Nucleated Red Blood Cells % 0.0 Immature Granulocytes # 0.200 H Neutrophils # 9.3 H Lymphocytes # 1.2 Monocytes # 1.3 H Eosinophils # 0.4 Basophils # 0.1 Nucleated Red Blood Cells # 0.0 Sodium Level 140 Potassium Level 3.3 L Chloride Level 110 Carbon Dioxide Level 21 Anion Gap 9 Blood Urea Nitrogen 38 H Creatinine 2.47 H Est Glomerular Filtrat Rate mL/min 26 L Glucose Level 108 Calcium Level 8.6 Subjective 24 Hr Interval Summary Free Text/Dictation No change to status Resting comfortably Exam/Review of Systems Exam Vitals Vital Signs Date Temp Pulse Resp B/P (MAP) Pulse Ox O2 O2 Flow FiO2 Time Delivery Rate 04/18/19 98.3 63 17 126/61 99 14:10 (82) 04/17/19 Room Air 16:41 Intake and Output 04/17/19 04/17/19 04/18/19 1515:00 23:00 07:00 IntakeIntake Total 1030 ml OutputOutput Total 1000 ml 1200 ml BalanceBalance 30 ml -1200 ml Constitutional: alert, oriented, well developed Psych: no complaints, nl mood/affect Head: normocephalic, atraumatic Eyes: nl conjunctiva, EOMI, nl lids, nl sclera, PERRL ENMT: nl external ears & nose, nl lips & teeth, nl nasal mucosa & septum Neck: supple, non-tender Respiratory: clear to auscultation, normal air movement Cardiovascular: regular rate and rhythm, nl pulses Gastrointestinal: soft, nl liver, spleen, non-tender Musculoskeletal: nl extremities to inspection, nl gait and stance Extremities: normal pulses 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, nl mental status, nl speech, nl strength Skin: nl turgor; No rash or lesions Lymph: nl lymph nodes Results Results 24hrs Laboratory Tests Test 04/18/19 07:17 White Blood Count 12.3 H Red Blood Count 3.19 L Hemoglobin 8.7 L Hematocrit 27.2 L Mean Corpuscular Volume 85.3 Mean Corpuscular Hemoglobin 27.3 L Mean Corpuscular Hemoglobin Concent 32.0 Red Cell Distribution Width 16.5 H Platelet Count 275 Mean Platelet Volume 9.4 Immature Granulocytes % 1.600 H Neutrophils % 75.1 Lymphocytes % 9.3 L Monocytes % 10.4 Eosinophils % 3.1 Basophils % 0.5 Nucleated Red Blood Cells % 0.0 Immature Granulocytes # 0.200 H Neutrophils # 9.3 H Lymphocytes # 1.2 Monocytes # 1.3 H Eosinophils # 0.4 Basophils # 0.1 Nucleated Red Blood Cells # 0.0 Sodium Level 140 Potassium Level 3.3 L Chloride Level 110 Carbon Dioxide Level 21 Anion Gap 9 Blood Urea Nitrogen 38 H Creatinine 2.47 H Est Glomerular Filtrat Rate mL/min 26 L Glucose Level 108 Calcium Level 8.6 Medications Medication Current Medications IV Flush (NS 3 ml) 3 ml PER PROTOCOL IV ; Start 04/12/19 at 19:30 Ondansetron HCl (Zofran Inj) 4 mg Q6H PRN IV NAUSEA/VOMITING; Start 04/12/19 at 19:30 Acetaminophen (Tylenol Tab) 650 mg Q6H PRN PO .PAIN 1-3 OR TEMP; Start 04/12/19 at 19:30 Acetaminophen/ Hydrocodone Bitart ([place] (5/325)) 1 tab Q6H PRN PO .MOD PAIN 4- 6; Start 04/12/19 at 19:30 Morphine Sulfate (morphine) 2 mg Q4H PRN IV .SEVERE PAIN 7-10; Start 04/12/19 at 19:30 Docusate Sodium (Colace) 100 mg Q12H PRN PO .CONSTIPATION Last administered on 04/17/19 21:47; Admin Dose 100 MG; Start 04/12/19 at 19:30 Magnesium Hydroxide (Milk Of Mag) 30 ml DAILY PRN PO .CONSTIPATION Last administered on 04/18/19 09:44; Admin Dose 30 ML; Start 04/12/19 at 19:30 Lorazepam (Ativan) 0.5 mg Q6H PRN IV ANXIETY; Start 04/12/19 at 19:30 Albuterol/ Ipratropium (Duoneb) 3 ml Q4H RESP THERAPY PRN HHN SHORTNESS OF BREATH; Start 04/12/19 at 19:30 Hydralazine HCl (Apresoline) 10 mg Q6H PRN IV ELEVATED BLOOD PRESSURE; Start 04/12/19 at 19:30 Nitroglycerin (Nitroglycerin (Sl Tab) 0.4 Mg) 1 tab Q5M PRN SL ANGINA; Start 04/12/19 at 19:30 Tamsulosin HCl (Flomax) 0.4 mg DAILY@2100 PO Last administered on 04/17/19 21:47; Admin Dose 0.4 MG; Start 04/13/19 at 21:00 Sevelamer Carbonate (Renvela) 800 mg WITH MEALS PO Last administered on 04/18/19 12:41; Admin Dose 800 MG; Start 04/14/19 at 11:50 HOLDEN VALLE MD April 18, 2019 17:05
[2019-04-18 20:55] VITALS: BP 90/60; PULSE 81; RESP 18
[2019-04-18] MEDS: TAMSULOSIN (SR) 0.4 MG CAP PO SCH (21:22)
[2019-04-19 02:00] VITALS: BP 97/53; PULSE 68; RESP 18
[2019-04-19 08:00] VITALS: BP 105/58; PULSE 64; RESP 18
[2019-04-19] MEDS: SEVELAMER CARBONATE 800 MG TABLET PO SCH (08:59)
--- NOTE | 2019-04-19 11:45 | CONS ---
Assessment/Plan Assessment/Plan Hospital Course (Demo Recall) 1. Nonoliguric acute kidney injury on top of chronic kidney disease with previous baseline creatinine of 1.5 mg/dL. Etiology of acute kidney injury is secondary to obstructive uropathy. Renal function has been improving after Arceo catheter placement. Continue to monitor. 2. Bilateral hydronephrosis secondary to benign prostatic hypertrophy, urinary retention. The patient is status post Arceo catheter placement with improvement in renal function. Continue Flomax. Continue to follow up with urology. 3. Metabolic acidosis, improving. The patient is status post bicarbonate drip. 4. Hypotension. Continue to encourage p.o. intake. We will give IV fluids as needed. 5. BMD: stop sevelamer. monitor ca and phos 6. Sepsis secondary to urinary tract infection. The patient is completing antibiotic course. 7. Arthritis. Continue to monitor. 8. General debility. Consultation Date/Type/Reason Admit Date/Time April 12, 2019 at 19:05 Initial Consult Date 04/13/19 Requesting Provider: LISANDRA MCCOY MD Date/Time of Note DATE: 04/19/19 TIME: 11:43 24 HR Interval Summary Free Text/Dictation adequate urine output with arceo catheter denies shortness of breath or n/v d/w rn gen nad cv rrr pulm ctab abd soft, nd, nt +bs ext: no edema Exam/Review of Systems Exam Vitals Vital Signs Date Temp Pulse Resp B/P (MAP) Pulse Ox O2 O2 Flow FiO2 Time Delivery Rate 04/19/19 97.9 64 18 105/58 98 08:00 (74) 04/17/19 Room Air 16:41 Intake and Output 04/18/19 04/18/19 04/19/19 1515:00 23:00 07:00 IntakeIntake Total 650 ml OutputOutput Total 500 ml BalanceBalance 150 ml Results Result Diagram: 04/19/19 0707 04/19/19 0706 Results 24hrs Laboratory Tests Test 04/19/19 07:06 04/19/19 07:07 Sodium Level 138 Potassium Level 4.0 Chloride Level 109 Carbon Dioxide Level 22 Anion Gap 7 Blood Urea Nitrogen 35 H Creatinine 2.34 H Est Glomerular Filtrat Rate mL/min 28 L Glucose Level 117 Calcium Level 8.8 White Blood Count 12.2 H Red Blood Count 3.37 L Hemoglobin 9.2 L Hematocrit 29.1 L Mean Corpuscular Volume 86.4 Mean Corpuscular Hemoglobin 27.3 L Mean Corpuscular Hemoglobin Concent 31.6 L Red Cell Distribution Width 16.6 H Platelet Count 266 Mean Platelet Volume 10.1 Immature Granulocytes % 1.400 H Neutrophils % 75.0 Lymphocytes % 11.6 L Monocytes % 8.1 Eosinophils % 3.4 Basophils % 0.5 Nucleated Red Blood Cells % 0.0 Immature Granulocytes # 0.170 H Neutrophils # 9.2 H Lymphocytes # 1.4 Monocytes # 1.0 H Eosinophils # 0.4 Basophils # 0.1 Nucleated Red Blood Cells # 0.0 Phosphorus Level 3.1 Magnesium Level 2.0 Medications Medication Current Medications IV Flush (NS 3 ml) 3 ml PER PROTOCOL IV ; Start 04/12/19 at 19:30 Ondansetron HCl (Zofran Inj) 4 mg Q6H PRN IV NAUSEA/VOMITING; Start 04/12/19 at 19:30 Acetaminophen (Tylenol Tab) 650 mg Q6H PRN PO .PAIN 1-3 OR TEMP; Start 04/12/19 at 19:30 Acetaminophen/ Hydrocodone Bitart ([place] (5/325)) 1 tab Q6H PRN PO .MOD PAIN 4- 6; Start 04/12/19 at 19:30 Morphine Sulfate (morphine) 2 mg Q4H PRN IV .SEVERE PAIN 7-10; Start 04/12/19 at 19:30 Docusate Sodium (Colace) 100 mg Q12H PRN PO .CONSTIPATION Last administered on 04/17/19at 21:47; Admin Dose 100 MG; Start 04/12/19 at 19:30 Magnesium Hydroxide (Milk Of Mag) 30 ml DAILY PRN PO .CONSTIPATION Last administered on 04/18/19at 09:44; Admin Dose 30 ML; Start 04/12/19 at 19:30 Lorazepam (Ativan) 0.5 mg Q6H PRN IV ANXIETY; Start 04/12/19 at 19:30 Albuterol/ Ipratropium (Duoneb) 3 ml Q4H RESP THERAPY PRN HHN SHORTNESS OF BREATH; Start 04/12/19 at 19:30 Hydralazine HCl (Apresoline) 10 mg Q6H PRN IV ELEVATED BLOOD PRESSURE; Start 04/12/19 at 19:30 Nitroglycerin (Nitroglycerin (Sl Tab) 0.4 Mg) 1 tab Q5M PRN SL ANGINA; Start 04/12/19 at 19:30 Tamsulosin HCl (Flomax) 0.4 mg DAILY@2100 PO Last administered on 04/18/19at 21:22; Admin Dose 0.4 MG; Start 04/13/19 at 21:00 Sevelamer Carbonate (Renvela) 800 mg WITH MEALS PO Last administered on 04/19/19at 08:59; Admin Dose 800 MG; Start 04/14/19 at 11:50 ESTER HARPER MD Apr 19, 2019 11:45
[2019-04-19 14:00] VITALS: BP 98/57; PULSE 63; RESP 18
--- NOTE | 2019-04-19 17:12 | CONS ---
Consult Date/Type/Reason Admit Date/Time April 12, 2019 at 19:05 Initial Consult Date 04/13/19 Type of Consultation: Urology Requesting Provider: LISANDRA MCCOY MD Date/Time of Note DATE: 04/19/19 TIME: 17:10 Objective Vitals Vital Signs Date Temp Pulse Resp B/P (MAP) Pulse Ox O2 O2 Flow FiO2 Time Delivery Rate 04/19/19 97.9 63 18 98/57 (71) 99 14:00 04/17/19 Room Air 16:41 Intake and Output 04/18/19 04/18/19 04/19/19 1515:00 23:00 07:00 IntakeIntake Total 650 ml OutputOutput Total 500 ml BalanceBalance 150 ml Results/Medications Result Diagram: 04/19/19 0707 04/19/19 0706 Results 24 hrs Laboratory Tests Test 04/19/19 07:06 04/19/19 07:07 Sodium Level 138 Potassium Level 4.0 Chloride Level 109 Carbon Dioxide Level 22 Anion Gap 7 Blood Urea Nitrogen 35 H Creatinine 2.34 H Est Glomerular Filtrat Rate mL/min 28 L Glucose Level 117 Calcium Level 8.8 White Blood Count 12.2 H Red Blood Count 3.37 L Hemoglobin 9.2 L Hematocrit 29.1 L Mean Corpuscular Volume 86.4 Mean Corpuscular Hemoglobin 27.3 L Mean Corpuscular Hemoglobin Concent 31.6 L Red Cell Distribution Width 16.6 H Platelet Count 266 Mean Platelet Volume 10.1 Immature Granulocytes % 1.400 H Neutrophils % 75.0 Lymphocytes % 11.6 L Monocytes % 8.1 Eosinophils % 3.4 Basophils % 0.5 Nucleated Red Blood Cells % 0.0 Immature Granulocytes # 0.170 H Neutrophils # 9.2 H Lymphocytes # 1.4 Monocytes # 1.0 H Eosinophils # 0.4 Basophils # 0.1 Nucleated Red Blood Cells # 0.0 Phosphorus Level 3.1 Magnesium Level 2.0 Home Meds Active Scripts Tamsulosin Hcl* (Flomax*) 0.4 Mg Cap.er.24h, 0.4 MG PO DAILY, #30 CAP Prov:FRANCA JEAN MD 10/04/18 Metoprolol Tartrate* (Lopressor*) 25 Mg Tab, 25 MG PO BID for 28 Days, #60 TAB Prov:JOSE ANTONIO JESUS MD 11/30/16 Medications Current Medications IV Flush (NS 3 ml) 3 ml PER PROTOCOL IV ; Start 04/12/19 at 19:30 Ondansetron HCl (Zofran Inj) 4 mg Q6H PRN IV NAUSEA/VOMITING; Start 04/12/19 at 19:30 Acetaminophen (Tylenol Tab) 650 mg Q6H PRN PO .PAIN 1-3 OR TEMP; Start 04/12/19 at 19:30 Acetaminophen/ Hydrocodone Bitart ([place] (5/325)) 1 tab Q6H PRN PO .MOD PAIN 4- 6; Start 04/12/19 at 19:30 Morphine Sulfate (morphine) 2 mg Q4H PRN IV .SEVERE PAIN 7-10; Start 04/12/19 at 19:30 Docusate Sodium (Colace) 100 mg Q12H PRN PO .CONSTIPATION Last administered on 04/17/19 21:47; Admin Dose 100 MG; Start 04/12/19 at 19:30 Magnesium Hydroxide (Milk Of Mag) 30 ml DAILY PRN PO .CONSTIPATION Last administered on 04/18/19 09:44; Admin Dose 30 ML; Start 04/12/19 at 19:30 Lorazepam (Ativan) 0.5 mg Q6H PRN IV ANXIETY; Start 04/12/19 at 19:30 Albuterol/ Ipratropium (Duoneb) 3 ml Q4H RESP THERAPY PRN HHN SHORTNESS OF BREATH; Start 04/12/19 at 19:30 Hydralazine HCl (Apresoline) 10 mg Q6H PRN IV ELEVATED BLOOD PRESSURE; Start 04/12/19 at 19:30 Nitroglycerin (Nitroglycerin (Sl Tab) 0.4 Mg) 1 tab Q5M PRN SL ANGINA; Start 04/12/19 at 19:30 Tamsulosin HCl (Flomax) 0.4 mg DAILY@2100 PO Last administered on 04/18/19 21:22; Admin Dose 0.4 MG; Start 04/13/19 at 21:00 Assessment/Plan Hospital Course (Demo Recall) 68-year-old male presented to the emergency room complaining of bilateral shoulder pain. The patient is known to have a history of chronic kidney disease, baseline creatinine around 1.5 mg/dL, history of methamphetamine use, history of hepatitis C, history of urinary retention, history of shingles, cellulitis, osteoarthritis. X-ray of his shoulders showed osteoarthritic changes in the glenohumeral joint. The patient also had laboratory data drawn and that showed a creatinine of 7, bicarb of 8, potassium 5.3. Because of that he underwent an ultrasound of the kidneys and that showed severe bilateral hydronephrosis. A Mcdermott catheter was placed with excellent urinary output. A urological consultation was requested. The patient denies any urinary incontinence. He denies any dysuria and he also denies any hematuria. He is homeless and most of the questions were answered by I do not remember and I do not know. The patient had urinary retention and because of that bilateral hydronephrosis. His prostate appears to be enlarged but I doubt it to be the only reason for his urinary retention. The Mcdermott catheter is draining clear urine and his renal function continues to improve his creatinine now is 2.34 and his PSA is 0.1. For now keep the Mcdermott catheter in place and see how far down the creatinine w ould come. Then we may try to take the Mcdermott catheter and see if he does void. Continue the tamsulosin as well. MILO COOMBS MD Apr 19, 2019 17:12
--- NOTE | 2019-04-19 18:32 | PN ---
Date/Time of Note Date/Time of Note DATE: 04/19/19 TIME: 18:32 Assessment/Plan VTE Prophylaxis Risk score (from Ns)>0 risk: 4 SCD applied (from Ns): Yes Pharmacological prophylaxis: heparin Lines/Catheters IV [facility]from [facility] Saline Lock Urinary Cath still in place: Yes Reason Cath still needed: urinary retention Assessment/Plan Hospital Course ADRIAN from obstrucitve uropathy: - Continue arceo - [place] labs if he allows - Dr Stark Metabolic acidosis: - From renal failure - Will hopefully correct with relief of obstruction BPH: - Flomax - Management per Dr Farley Result Diagram: 04/19/19 0707 04/19/19 0706 Results 24hrs Laboratory Tests Test 04/19/19 07:06 04/19/19 07:07 Sodium Level 138 Potassium Level 4.0 Chloride Level 109 Carbon Dioxide Level 22 Anion Gap 7 Blood Urea Nitrogen 35 H Creatinine 2.34 H Est Glomerular Filtrat Rate mL/min 28 L Glucose Level 117 Calcium Level 8.8 White Blood Count 12.2 H Red Blood Count 3.37 L Hemoglobin 9.2 L Hematocrit 29.1 L Mean Corpuscular Volume 86.4 Mean Corpuscular Hemoglobin 27.3 L Mean Corpuscular Hemoglobin Concent 31.6 L Red Cell Distribution Width 16.6 H Platelet Count 266 Mean Platelet Volume 10.1 Immature Granulocytes % 1.400 H Neutrophils % 75.0 Lymphocytes % 11.6 L Monocytes % 8.1 Eosinophils % 3.4 Basophils % 0.5 Nucleated Red Blood Cells % 0.0 Immature Granulocytes # 0.170 H Neutrophils # 9.2 H Lymphocytes # 1.4 Monocytes # 1.0 H Eosinophils # 0.4 Basophils # 0.1 Nucleated Red Blood Cells # 0.0 Phosphorus Level 3.1 Magnesium Level 2.0 Subjective 24 Hr Interval Summary Free Text/Dictation No change to clincial status Awaiting placement Exam/Review of Systems Exam Vitals Vital Signs Date Temp Pulse Resp B/P (MAP) Pulse Ox O2 O2 Flow FiO2 Time Delivery Rate 04/19/19 97.9 63 18 98/57 (71) 99 14:00 04/17/19 Room Air 16:41 Intake and Output 04/18/19 04/18/19 04/19/19 1515:00 23:00 07:00 IntakeIntake Total 650 ml OutputOutput Total 500 ml BalanceBalance 150 ml Results Results 24hrs Laboratory Tests Test 04/19/19 07:06 04/19/19 07:07 Sodium Level 138 Potassium Level 4.0 Chloride Level 109 Carbon Dioxide Level 22 Anion Gap 7 Blood Urea Nitrogen 35 H Creatinine 2.34 H Est Glomerular Filtrat Rate mL/min 28 L Glucose Level 117 Calcium Level 8.8 White Blood Count 12.2 H Red Blood Count 3.37 L Hemoglobin 9.2 L Hematocrit 29.1 L Mean Corpuscular Volume 86.4 Mean Corpuscular Hemoglobin 27.3 L Mean Corpuscular Hemoglobin Concent 31.6 L Red Cell Distribution Width 16.6 H Platelet Count 266 Mean Platelet Volume 10.1 Immature Granulocytes % 1.400 H Neutrophils % 75.0 Lymphocytes % 11.6 L Monocytes % 8.1 Eosinophils % 3.4 Basophils % 0.5 Nucleated Red Blood Cells % 0.0 Immature Granulocytes # 0.170 H Neutrophils # 9.2 H Lymphocytes # 1.4 Monocytes # 1.0 H Eosinophils # 0.4 Basophils # 0.1 Nucleated Red Blood Cells # 0.0 Phosphorus Level 3.1 Magnesium Level 2.0 Medications Medication Current Medications IV Flush (NS 3 ml) 3 ml PER PROTOCOL IV ; Start 04/12/19 at 19:30 Ondansetron HCl (Zofran Inj) 4 mg Q6H PRN IV NAUSEA/VOMITING; Start 04/12/19 at 19:30 Acetaminophen (Tylenol Tab) 650 mg Q6H PRN PO .PAIN 1-3 OR TEMP; Start 04/12/19 at 19:30 Acetaminophen/ Hydrocodone Bitart ([place] (5/325)) 1 tab Q6H PRN PO .MOD PAIN 4- 6; Start 04/12/19 at 19:30 Morphine Sulfate (morphine) 2 mg Q4H PRN IV .SEVERE PAIN 7-10; Start 04/12/19 at 19:30 Docusate Sodium (Colace) 100 mg Q12H PRN PO .CONSTIPATION Last administered on 04/17/19at 21:47; Admin Dose 100 MG; Start 04/12/19 at 19:30 Magnesium Hydroxide (Milk Of Mag) 30 ml DAILY PRN PO .CONSTIPATION Last administered on 04/18/19at 09:44; Admin Dose 30 ML; Start 04/12/19 at 19:30 Lorazepam (Ativan) 0.5 mg Q6H PRN IV ANXIETY; Start 04/12/19 at 19:30 Albuterol/ Ipratropium (Duoneb) 3 ml Q4H RESP THERAPY PRN HHN SHORTNESS OF BREATH; Start 04/12/19 at 19:30 Hydralazine HCl (Apresoline) 10 mg Q6H PRN IV ELEVATED BLOOD PRESSURE; Start 04/12/19 at 19:30 Nitroglycerin (Nitroglycerin (Sl Tab) 0.4 Mg) 1 tab Q5M PRN SL ANGINA; Start 04/12/19 at 19:30 Tamsulosin HCl (Flomax) 0.4 mg DAILY@2100 PO Last administered on 04/18/19at 21:22; Admin Dose 0.4 MG; Start 04/13/19 at 21:00 HOLDEN VALLE MD Apr 19, 2019 18:32
[2019-04-19 20:00] VITALS: BP 116/67; PULSE 85; RESP 17
[2019-04-19] MEDS: TAMSULOSIN (SR) 0.4 MG CAP PO SCH (20:26)
[2019-04-20 01:57] VITALS: BP 93/56; PULSE 64; RESP 19
[2019-04-20 08:06] VITALS: BP 98/59; PULSE 60; RESP 16
--- NOTE | 2019-04-20 12:02 | CONS ---
Assessment/Plan Assessment/Plan Hospital Course (Demo Recall) 1. Nonoliguric acute kidney injury on top of chronic kidney disease with previous baseline creatinine of 1.5 mg/dL. Etiology of acute kidney injury is secondary to obstructive uropathy. Renal function has been improving after Mcdermott catheter placement. Continue to monitor. 2. Bilateral hydronephrosis secondary to benign prostatic hypertrophy, urinary retention. The patient is status post Mcdermott catheter placement with improvement in renal function. Continue Flomax. Continue to follow up with urology. 3. Metabolic acidosis, improving. The patient is status post bicarbonate drip. 4. Hypotension. Continue to encourage p.o. intake. We will give IV fluids as needed. 5. BMD: stop sevelamer. monitor ca and phos 6. Sepsis secondary to urinary tract infection. The patient is completing antibiotic course. 7. Arthritis. Continue to monitor. 8. General debility. Consultation Date/Type/Reason Admit Date/Time April 12, 2019 at 19:05 Initial Consult Date 04/13/19 Requesting Provider: LISANDRA MCCOY MD Date/Time of Note DATE: 04/20/19 TIME: 12:01 24 HR Interval Summary Free Text/Dictation denies n/v, shortness of breath or urinary issues d/w rn gen nad cv rrr pulm ctab abd soft, nd, nt +bs ext: no edema Exam/Review of Systems Exam Vitals Vital Signs Date Temp Pulse Resp B/P (MAP) Pulse Ox O2 O2 Flow FiO2 Time Delivery Rate 04/20/19 97.5 60 16 98/59 (72) 97 08:06 04/17/19 Room Air 16:41 Intake and Output 04/19/19 04/19/19 04/20/19 1515:00 23:00 07:00 IntakeIntake Total 600 ml 200 ml BalanceBalance 600 ml 200 ml Results Result Diagram: 04/20/19 0542 04/20/19 0542 Results 24hrs Laboratory Tests Test 04/20/19 05:42 White Blood Count 11.2 H Red Blood Count 3.13 L Hemoglobin 8.5 L Hematocrit 26.5 L Mean Corpuscular Volume 84.7 Mean Corpuscular Hemoglobin 27.2 L Mean Corpuscular Hemoglobin Concent 32.1 Red Cell Distribution Width 16.0 H Platelet Count 304 Mean Platelet Volume 9.4 Immature Granulocytes % 1.800 H Neutrophils % 75.3 Lymphocytes % 11.5 L Monocytes % 7.0 Eosinophils % 4.0 Basophils % 0.4 Nucleated Red Blood Cells % 0.0 Immature Granulocytes # 0.200 H Neutrophils # 8.5 H Lymphocytes # 1.3 Monocytes # 0.8 Eosinophils # 0.5 Basophils # 0.1 Nucleated Red Blood Cells # 0.0 Sodium Level 138 Potassium Level 3.5 Chloride Level 107 Carbon Dioxide Level 22 Anion Gap 9 Blood Urea Nitrogen 35 H Creatinine 2.30 H Est Glomerular Filtrat Rate mL/min 28 L Glucose Level 136 Calcium Level 8.5 Medications Medication Current Medications IV Flush (NS 3 ml) 3 ml PER PROTOCOL IV ; Start 04/12/19 at 19:30 Ondansetron HCl (Zofran Inj) 4 mg Q6H PRN IV NAUSEA/VOMITING; Start 04/12/19 at 19:30 Acetaminophen (Tylenol Tab) 650 mg Q6H PRN PO .PAIN 1-3 OR TEMP; Start 04/12/19 at 19:30 Acetaminophen/ Hydrocodone Bitart ([place] (5/325)) 1 tab Q6H PRN PO .MOD PAIN 4- 6; Start 04/12/19 at 19:30 Morphine Sulfate (morphine) 2 mg Q4H PRN IV .SEVERE PAIN 7-10; Start 04/12/19 at 19:30 Docusate Sodium (Colace) 100 mg Q12H PRN PO .CONSTIPATION Last administered on 04/17/19at 21:47; Admin Dose 100 MG; Start 04/12/19 at 19:30 Magnesium Hydroxide (Milk Of Mag) 30 ml DAILY PRN PO .CONSTIPATION Last administered on 04/18/19at 09:44; Admin Dose 30 ML; Start 04/12/19 at 19:30 Lorazepam (Ativan) 0.5 mg Q6H PRN IV ANXIETY; Start 04/12/19 at 19:30 Albuterol/ Ipratropium (Duoneb) 3 ml Q4H RESP THERAPY PRN HHN SHORTNESS OF BREATH; Start 04/12/19 at 19:30 Hydralazine HCl (Apresoline) 10 mg Q6H PRN IV ELEVATED BLOOD PRESSURE; Start 04/12/19 at 19:30 Nitroglycerin (Nitroglycerin (Sl Tab) 0.4 Mg) 1 tab Q5M PRN SL ANGINA; Start 04/12/19 at 19:30 Tamsulosin HCl (Flomax) 0.4 mg DAILY@2100 PO Last administered on 04/19/19at 20:26; Admin Dose 0.4 MG; Start 04/13/19 at 21:00 ESTER HARPER MD Apr 20, 2019 12:02
--- NOTE | 2019-04-20 13:44 | PN ---
Date/Time of Note Date/Time of Note DATE: 04/20/19 TIME: 13:44 Assessment/Plan VTE Prophylaxis Risk score (from Ns)>0 risk: 4 SCD applied (from Ns): Yes Pharmacological prophylaxis: heparin Lines/Catheters IV Catheter Type (from Nrs): Saline Lock Urinary Cath still in place: Yes Reason Cath still needed: urinary retention Assessment/Plan Hospital Course ADRIAN from obstrucitve uropathy: - Creatinine seems to have stablized suggesting an element of CKD - Continue arceo - Dr Stark Metabolic acidosis: - Resolved BPH: - Flomax - Management per Dr Farley Result Diagram: 04/20/19 0542 04/20/19 0542 Results 24hrs Laboratory Tests Test 04/20/19 05:42 White Blood Count 11.2 H Red Blood Count 3.13 L Hemoglobin 8.5 L Hematocrit 26.5 L Mean Corpuscular Volume 84.7 Mean Corpuscular Hemoglobin 27.2 L Mean Corpuscular Hemoglobin Concent 32.1 Red Cell Distribution Width 16.0 H Platelet Count 304 Mean Platelet Volume 9.4 Immature Granulocytes % 1.800 H Neutrophils % 75.3 Lymphocytes % 11.5 L Monocytes % 7.0 Eosinophils % 4.0 Basophils % 0.4 Nucleated Red Blood Cells % 0.0 Immature Granulocytes # 0.200 H Neutrophils # 8.5 H Lymphocytes # 1.3 Monocytes # 0.8 Eosinophils # 0.5 Basophils # 0.1 Nucleated Red Blood Cells # 0.0 Sodium Level 138 Potassium Level 3.5 Chloride Level 107 Carbon Dioxide Level 22 Anion Gap 9 Blood Urea Nitrogen 35 H Creatinine 2.30 H Est Glomerular Filtrat Rate mL/min 28 L Glucose Level 136 Calcium Level 8.5 Subjective 24 Hr Interval Summary Free Text/Dictation No change to clinical status Comfortable Awaiting placement Exam/Review of Systems Exam Vitals Vital Signs Date Temp Pulse Resp B/P (MAP) Pulse Ox O2 O2 Flow FiO2 Time Delivery Rate 04/20/19 97.5 60 16 98/59 (72) 97 08:06 04/17/19 Room Air 16:41 Intake and Output 04/19/19 04/19/19 04/20/19 1515:00 23:00 07:00 IntakeIntake Total 600 ml 200 ml BalanceBalance 600 ml 200 ml Constitutional: alert, oriented, well developed Psych: no complaints, nl mood/affect Head: normocephalic, atraumatic Eyes: nl conjunctiva, EOMI, nl lids, nl sclera, PERRL ENMT: nl external ears & nose, nl lips & teeth, nl nasal mucosa & septum Neck: supple, non-tender Respiratory: clear to auscultation, normal air movement Cardiovascular: regular rate and rhythm, nl pulses Gastrointestinal: soft, nl liver, spleen, non-tender Musculoskeletal: nl extremities to inspection, nl gait and stance Extremities: normal pulses 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, nl mental status, nl speech, nl strength Skin: nl turgor; No rash or lesions Lymph: nl lymph nodes Results Results 24hrs Laboratory Tests Test 04/20/19 05:42 White Blood Count 11.2 H Red Blood Count 3.13 L Hemoglobin 8.5 L Hematocrit 26.5 L Mean Corpuscular Volume 84.7 Mean Corpuscular Hemoglobin 27.2 L Mean Corpuscular Hemoglobin Concent 32.1 Red Cell Distribution Width 16.0 H Platelet Count 304 Mean Platelet Volume 9.4 Immature Granulocytes % 1.800 H Neutrophils % 75.3 Lymphocytes % 11.5 L Monocytes % 7.0 Eosinophils % 4.0 Basophils % 0.4 Nucleated Red Blood Cells % 0.0 Immature Granulocytes # 0.200 H Neutrophils # 8.5 H Lymphocytes # 1.3 Monocytes # 0.8 Eosinophils # 0.5 Basophils # 0.1 Nucleated Red Blood Cells # 0.0 Sodium Level 138 Potassium Level 3.5 Chloride Level 107 Carbon Dioxide Level 22 Anion Gap 9 Blood Urea Nitrogen 35 H Creatinine 2.30 H Est Glomerular Filtrat Rate mL/min 28 L Glucose Level 136 Calcium Level 8.5 Medications Medication Current Medications IV Flush (NS 3 ml) 3 ml PER PROTOCOL IV ; Start 04/12/19 at 19:30 Ondansetron HCl (Zofran Inj) 4 mg Q6H PRN IV NAUSEA/VOMITING; Start 04/12/19 at 19:30 Acetaminophen (Tylenol Tab) 650 mg Q6H PRN PO .PAIN 1-3 OR TEMP; Start 04/12/19 at 19:30 Acetaminophen/ Hydrocodone Bitart ([place] (5/325)) 1 tab Q6H PRN PO .MOD PAIN 4- 6; Start 04/12/19 at 19:30 Morphine Sulfate (morphine) 2 mg Q4H PRN IV .SEVERE PAIN 7-10; Start 04/12/19 at 19:30 Docusate Sodium (Colace) 100 mg Q12H PRN PO .CONSTIPATION Last administered on 04/17/19at 21:47; Admin Dose 100 MG; Start 04/12/19 at 19:30 Magnesium Hydroxide (Milk Of Mag) 30 ml DAILY PRN PO .CONSTIPATION Last administered on 04/18/19at 09:44; Admin Dose 30 ML; Start 04/12/19 at 19:30 Lorazepam (Ativan) 0.5 mg Q6H PRN IV ANXIETY; Start 04/12/19 at 19:30 Albuterol/ Ipratropium (Duoneb) 3 ml Q4H RESP THERAPY PRN HHN SHORTNESS OF BREATH; Start 04/12/19 at 19:30 Hydralazine HCl (Apresoline) 10 mg Q6H PRN IV ELEVATED BLOOD PRESSURE; Start 04/12/19 at 19:30 Nitroglycerin (Nitroglycerin (Sl Tab) 0.4 Mg) 1 tab Q5M PRN SL ANGINA; Start 04/12/19 at 19:30 Tamsulosin HCl (Flomax) 0.4 mg DAILY@2100 PO Last administered on 04/19/19at 20:26; Admin Dose 0.4 MG; Start 04/13/19 at 21:00 HOLDEN VALLE MD Apr 20, 2019 13:44
[2019-04-20 14:35] VITALS: BP 99/57; PULSE 71; RESP 18
[2019-04-20 20:04] VITALS: BP 93/56; PULSE 80; RESP 18
[2019-04-20] MEDS: TAMSULOSIN (SR) 0.4 MG CAP PO SCH (20:43)
[2019-04-21 02:00] VITALS: BP 98/63; PULSE 72; RESP 18
[2019-04-21 08:00] VITALS: BP 85/50; PULSE 70; RESP 18
--- NOTE | 2019-04-21 13:36 | PN ---
DATE: 04/21/2019 SUBJECTIVE: The patient is stable. No events overnight. No fevers, chills, nausea, vomiting. OBJECTIVE: VITAL SIGNS: Blood pressure 99/56, pulse 80, respiration 18, temperature 98.3. HEENT: Head is normocephalic. NECK: Supple. HEART: Regular rate. LUNGS: Show diminished breath sounds at the base. ABDOMEN: Soft, nontender to palpation without rebound or guarding. EXTREMITIES: Negative for clubbing, cyanosis. No edema. DERMATOLOGIC: No rashes. MUSCULOSKELETAL: No joint effusion. NEUROLOGIC: No change in exam. MEDICATIONS: Have been reviewed. LABORATORY DATA: Have been reviewed. ASSESSMENT AND PLAN: 1. Nonoliguric acute kidney injury on top of chronic kidney disease with previous baseline creatinin e around 1.5 mg/dL. Etiology of acute kidney injury is secondary to obstructive uropathy. Renal fun ction is improving after Mcdermott catheter placement. Continue to monitor. 2. Bilateral hydronephrosis secondary to benign prostatic hypertrophy, urinary retention. The patie nt is improving after Mcdermott catheter placement. Continue to monitor. Continue Flomax. [facility]. 3. Metabolic acidosis, improved. 4. Hypertension, stable. Continue to monitor. Continue to encourage p.o. intake. 5. Mineral bone disorder. We will continue to monitor calcium and phosphorus levels. The patient's phosphatase binders were held. 6. Sepsis secondary to urinary tract infection. The patient completed antibiotic course. 7. Arthritis. Continue to monitor. 8. General debility. Dictated By: LAUREN WAGGONER DO NR/NTS Conf#: [id number] DID#: [id number] CC: LISANDRA MCCOY MD; MILO COOMBS MD; HOLDEN VALLE MD;*EndCC*
[2019-04-21 13:53] VITALS: BP 90/58; PULSE 62; RESP 18
--- NOTE | 2019-04-21 14:50 | PDOCDIS ---
Discharge Instructions DIAGNOSIS Discharge Diagnosis Obstructive uropathy ADRIAN CONDITION [id number] Patient Condition: [id number] Stable FOLLOW UP/APPOINTMENTS Follow-up Plan Patient should continue with arceo cather for the next one week. Catheter can then be removed and trial of void attempted. He should follow up with a urologist. Continue HOLDEN Simmons MD Apr 21, 2019 14:50
--- NOTE | 2019-04-21 14:51 | DS ---
Date/Time of Note Date/Time of Note DATE: 04/21/19 TIME: 14:50 Discharge Summary Admission/Discharge Info Admit Date/Time April 12, 2019 at 19:05 Discharge Date/Time Discharge Diagnosis Obstructive uropathy ADRIAN Patient Condition: Stable Hospital Course Found to have bilateral hydronephrosis and urinary retention. Creatinine was 5. A arceo was placed and good urine output resulted. Creatinine down to 2.3 and stable. He was given flomax. Arceo was continued. He can have it removed in a week or so an trial of void can be attempted at that time Home Meds Active Scripts Tamsulosin Hcl* (Flomax*) 0.4 Mg Cap.er.24h, 0.4 MG PO DAILY, #30 CAP Prov:FRANCA JEAN MD 10/04/18 Metoprolol Tartrate* (Lopressor*) 25 Mg Tab, 25 MG PO BID for 28 Days, #60 TAB Prov:JOSE ANTONIO JESUS MD 11/30/16 Follow-up Plan Patient should continue with arceo cather for the next one week. Catheter can then be removed and trial of void attempted. He should follow up with a urologist. Continue flomax Primary Care Provider Not On Staff Doctor HOLDEN VALLE MD Apr 21, 2019 14:51
== END 2019-04-21 18:35 | DRG 682 ==
LOC: FTE 12:39 → PP2 19:05 → CANRESERV 20:07 → PP2 21:37 → TEL 04-13 08:00 → 5EC 04-17 16:24
PROVIDERS: ADMIT Internal Medicine; ATTEND Internal Medicine
DX: N17.9 Acute kidney failure, unspecified (principal); A41.9 Sepsis, unspecified organism; E87.2 Acidosis; N13.6 Pyonephrosis; B19.20 Unspecified viral hepatitis C without hepatic coma; I12.9 Hypertensive chronic kidney disease with stage 1 through stage 4 chronic kidney disease, or unspecified chronic kidney disease; N18.9 Chronic kidney disease, unspecified; F17.210 Nicotine dependence, cigarettes, uncomplicated; D63.1 Anemia in chronic kidney disease; Z59.0 Homelessness; M19.012 Primary osteoarthritis, left shoulder; M19.011 Primary osteoarthritis, right shoulder; M17.0 Bilateral primary osteoarthritis of knee; E83.9 Disorder of mineral metabolism, unspecified; F15.10 Other stimulant abuse, uncomplicated; N40.1 Benign prostatic hyperplasia with lower urinary tract symptoms; E87.6 Hypokalemia; E83.42 Hypomagnesemia; R33.8 Other retention of urine
CPT/HCPCS: 36600; 70450; 70486; 74176; 76775; 80048; 80053; 80061; 81001; 82803; 83036; 83735; 84100; 84153; 84154; 84439; 84443; 85025; 87081; 87086; 92526; 92610; 93005; 96361; 96374; J0360; J1335; J7030; J7040; J7070